=== PATIENT | female | born 1950 | race Caucasian/White ===

== ENCOUNTER → 2016-04-21 | Outpatient (CLI) | payer MEDICARE, MEDICAID ==
--- NOTE | 2016-04-21 13:13 | WOMENS IMAGING REPORT ---
EXAM DESCRIPTION: BILAT SCREENING MAMMO W/CAD COMPLETED DATE/TIME: 04/21/2016 11:29 am REASON FOR STUDY: Z12.31 ROUTINE SCREENING MAMMO Z12.31 ENCNTR SCREEN MAMMOGRAM FOR MALIGNANT NEOPL ASM OF RICKY COMPARISON: August 2014 TECHNIQUE: Standard craniocaudal and mediolateral oblique views of each breast recorded using Waneloa l acquisition. LIMITATIONS: None. FINDINGS: Findings present which are benign by mammographic criteria. No suspicious masses, calcifi cations or architectural distortion. Read with the assistance of CAD. .[facility] - R2 Cenova Version 1.3 .[facility] - R2 Cenova Version 1.3 .[facility] - R2 Cenova Version 2.4 .[facility] [place] - R2 Cenova Version 2.4 .[facility] - R2 Planer Hand Version 9.2 Benign mammographic findings may include one or more of the following: Smooth masses, popcorn/rim/co arse calcifications, asymmetries, post-procedure changes, and lesions with long-standing stability. BREAST DENSITY: b. There are scattered areas of fibroglandular density. BIRAD: 2 BENIGN FINDING(S) RECOMMENDATION: ROUTINE SCREENING COMMENT: PATIENT NOTIFIED BY LETTER. The [employer] recommends an annual screening mammogram for women aged 40 years or over. Each patient will receive a reminder prior to the anniversary date of her mammogram. The [employer] (ACR) has developed recommendations for screening MRI of the breast s in certain patient populations, to be used in conjunction with mammography. Breast MRI surveillanc e may be appropriate for women with more than 20% lifetime risk of developing breast cancer as deter mined by genetic testing, significant family history of the disease, or history of mantle radiation f or Hodgkins Disease. ACR Practice Guidelines 2008. TECHNICAL DOCUMENTATION: FINDING NUMBER: (1) ASSESSMENT: (1) JOB ID: [id number] [employer]- All Rights Reserved
== END ==
LOC: WI 11:13
PROVIDERS: ATTEND Family Medicine
DX: Z12.31 Encounter for screening mammogram for malignant neoplasm of breast (principal)
CPT/HCPCS: 77067; G0202

== ENCOUNTER 2016-06-15 11:53 | Emergency (ER) | payer MEDICARE, MEDICAID ==
--- NOTE | 2016-06-15 12:01 | ER Document Report ---
ED Medical Screen (RME) - General TRAVEL OUTSIDE OF THE [place]. IN LAST 30 DAYS: No <MONTSERRAT PUGH - Last Filed: 06/15/16 11:59> <OPAL DICKSON - Last Filed: 06/17/16 05:37> - General Stated Complaint: RIGHT SIDE FLANK PAIN Notes: 66 yo female c/o right flank pain x 2 weeks. pt has been treated with 2 rounds of abx for UTI without improvement. pain has increased. no fever. + nausea, no vomiting. no dysuria. (MONTSERRAT PUGH) - Related Data Allergies/Adverse Reactions: pregabalin [From Lyrica] Adverse Reaction (Severe, Verified 06/15/16 12:01) fuzzy headed Past Medical History - Past Medical History Cardiac Medical History: Denies: Hx Coronary Artery Disease, Hx Heart Attack, Hx Hypertension Pulmonary Medical History: Reports: Hx Pneumonia Denies: Hx Asthma, Hx Bronchitis, Hx COPD Neurological Medical History: Reports: Hx Migraine. Denies: Hx Cerebrovascular Accident, Hx Seizures GI Medical History: Reports: Hx Gastroesophageal Reflux Disease, Hx Irritable Bowel, Hx Ulcerative Colitis Musculoskeltal Medical History: Reports Hx Arthritis - generalized, Reports Hx Fibromyalgia - chronic pain syndrome Psychiatric Medical History: Reports: Hx Anxiety, Hx Depression, Hx Post Traumatic Stress Disorder Past Surgical History: Reports: Hx Hysterectomy - Immunizations Hx Diphtheria, Pertussis, Tetanus Vaccination: No <MONTSERRAT PUGH - Last Filed: 06/15/16 11:59> Course - Laboratory Result Diagrams: 06/15/16 12:05 06/15/16 12:05 <OPAL DICKSON - Last Filed: 06/17/16 05:37> - Vital Signs Vital signs: Temp Pulse Resp BP Pulse Ox 97.9 F 65 96 H 114/63 100 06/15/16 16:27 06/15/16 16:27 06/15/16 16:27 06/15/16 16:27 06/15/16 16:27 - Laboratory Laboratory results interpreted by me: 06/15/16 06/15/16 06/15/16 12:05 12:05 12:05 RDW 15.6 H Carbon Dioxide 31 H Glucose 131 H C-Reactive Protein Total Protein 6.0 L Urine Ketones TRACE H Urine Bilirubin MODERATE H Urine Urobilinogen 2.0 H Ur Leukocyte Esterase SMALL H 06/15/16 12:05 RDW Carbon Dioxide Glucose C-Reactive Protein 21.1 H Total Protein Urine Ketones Urine Bilirubin Urine Urobilinogen Ur Leukocyte Esterase Doctor's Discharge <PUGH,MONTSERRAT - Last Filed: 06/15/16 11:59> <OPAL DICKSON - Last Filed: 06/17/16 05:37> - Discharge Clinical Impression: Right flank pain, Abdominal wall pain in right flank Condition: Stable Disposition: HOME, SELF-CARE Additional Instructions: Your pain seems to be coming from the muscles in your right abdomen and flank region. You have a considerable amount of stool in your colon. You should take stool softeners and drink plenty of water to prevent constipation from developing. The pain you're having in your muscles will take time to improve. You should avoid activities that make the pain worse. Follow-up with your medical doctor if not improving. RETURN TO THE EMERGENCY ROOM IF ANY NEW OR WORSENING SYMPTOMS. Referrals: BARBIE READ DO [Primary Care Provider] - Follow up as needed
[2016-06-15 12:32] LABS: ABSOLUTE BASOPHILS # (AUTO) 0.1 10^3/uL (0.0-0.2); ABSOLUTE EOSINOPHILS # (AUTO) 0.5 10^3/uL (0.0-0.6); ABSOLUTE LYMPHOCYTES (AUTO) 1.5 10^3/uL (0.5-4.7); ABSOLUTE MONOCYTES (AUTO) 0.7 10^3/uL (0.1-1.4); EOSINOPHILS % (AUTO) 5.4 % (0-6); HEMATOCRIT 40.2 % (36.0-47.0); HGB HCT DIFFERENCE 1.8; LYMPHOCYTES % (AUTO) 17.3 % (13-45); MEAN CORPUSCULAR HEMOGLOBIN 31.7 pg (27.0-33.4); MEAN CORPUSCULAR HGB CONC 34.9 g/dL (32.0-36.0); MEAN CORPUSCULAR VOLUME 91 fl (80-97); RED BLOOD COUNT 4.42 10^6/uL (3.72-5.28); RED CELL DISTRIBUTION WIDTH 15.6 % (11.5-14.0); SEGMENTED NEUTROPHILS % (AUTO) 68.3 % (42-78); WHITE BLOOD COUNT 8.8 10^3/uL (4.0-10.5)
[2016-06-15 12:38] LABS: APPEARANCE,URINE SLIGHTLY-CLOUDY; BILIRUBIN,URINE MODERATE (NEGATIVE); GLUCOSE, URINE NEGATIVE (NEGATIVE); KETONES,URINE TRACE mg/dL (NEGATIVE); LEUKOCYTE ESTERASE,URINE SMALL (NEGATIVE); NITRITE,URINE NEGATIVE (NEGATIVE); PROTEIN,URINE NEGATIVE (NEGATIVE); URINE SPECIFIC GRAVITY 1.028
[2016-06-15 12:45] LABS: ALANINE AMINOTRANSFERASE 30 U/L (9-52); ALBUMIN 3.8 g/dL (3.5-5.0); ALKALINE PHOSPHATASE 84 U/L (38-126); ANION GAP 8 (5-19); ASPARTATE AMINO TRANSFERASE 17 U/L (14-36); BILIRUBIN,DIRECT 0.3 mg/dL (0.0-0.4); BILIRUBIN,TOTAL 0.7 mg/dL (0.2-1.3); BLOOD UREA NITROGEN 18 mg/dL (7-20); CALCIUM 9.6 mg/dL (8.4-10.2); CARBON DIOXIDE 31 mmol/L (22-30); CHLORIDE 103 mmol/L (98-107); CREATININE RESULT 0.91 mg/dL (0.52-1.25); GLUCOSE 131 mg/dL (75-110); LIPASE 127.6 U/L (23-300); POTASSIUM 4.1 mmol/L (3.6-5.0); SODIUM 141.5 mmol/L (137-145)
[2016-06-15 15:17] LABS: ADD ON TESTING BLD IN LAB ACKNOWLEDGE
--- NOTE | 2016-06-15 15:18 | ER Document Report ---
ED General - General Mode of Arrival: Ambulatory Information source: Patient TRAVEL OUTSIDE OF THE U.[place] IN LAST 30 DAYS: No - HPI Patient complains to provider of: Right Abdominal Pain Onset: Other - Approximately 3 weeks ago Onset/Duration: Gradual, Persistent Associated symptoms: Nausea, Sweating. denies: Fever <KIMI GRANADOS - Last Filed: 06/15/16 15:13> <KYLE MONTALVO - Last Filed: 06/15/16 16:03> - General Chief Complaint: Flank Pain Stated Complaint: RIGHT SIDE FLANK PAIN Notes: Patient is a 66-year-old female presenting to the emergency department concerned of right side abdominal and back pain onset approximately 3 weeks ago. Patient was seen by Dr. Moon who has prescribed 2 rounds of antibiotics that she cannot remember the name of. Patient states she took both antibiotics twice a day, and these did not relieve any of the symptoms. Patient denies fever, burning with urination, or dysuria. Patient admits to mild nausea and diaphoresis. (KIMI GRANADOS) - Related Data Allergies/Adverse Reactions: pregabalin [From Lyrica] Adverse Reaction (Severe, Verified 06/15/16 12:01) fuzzy headed Past Medical History - General Information source: Patient, [facility] Records - Social History Smoking Status: Current Every Day Smoker Chew tobacco use (# tins/day): No Frequency of alcohol use: None Drug Abuse: None Family History: Reviewed & Not Pertinent Patient has suicidal ideation: No Patient has homicidal ideation: No - Past Medical History Cardiac Medical History: Denies: Hx Coronary Artery Disease, Hx Heart Attack, Hx Hypertension Pulmonary Medical History: Reports: Hx Pneumonia Denies: Hx Asthma, Hx Bronchitis, Hx COPD Neurological Medical History: Reports: Hx Migraine. Denies: Hx Cerebrovascular Accident, Hx Seizures Renal/ Medical History: Denies: Hx Peritoneal Dialysis GI Medical History: Reports: Hx Gastroesophageal Reflux Disease, Hx Irritable Bowel, Hx Ulcerative Colitis - ULERATIVE COLITIS, IBS, FIBROMYALGIA Musculoskeltal Medical History: Reports Hx Arthritis - OA, Reports Hx Fibromyalgia - chronic pain syndrome Psychiatric Medical History: Reports: Hx Anxiety, Hx Depression, Hx Post Traumatic Stress Disorder Past Surgical History: Reports: Hx Hysterectomy, Hx Orthopedic Surgery - L ELBOW NERVE TRANSFER, Hx Tubal Ligation - Immunizations Hx Diphtheria, Pertussis, Tetanus Vaccination: No Hx Pneumococcal Vaccination: 12/19/15 <SUMEET GRANADOSICA - Last Filed: 06/15/16 15:13> Review of Systems - Review of Systems Constitutional: See HPI, Diaphoresis. denies: Fever EENT: No symptoms reported Cardiovascular: No symptoms reported Respiratory: No symptoms reported Gastrointestinal: See HPI, Abdominal pain - Right side, Nausea Genitourinary: No symptoms reported. denies: Burning, Dysuria Female Genitourinary: No symptoms reported Musculoskeletal: No symptoms reported Skin: No symptoms reported Hematologic/Lymphatic: No symptoms reported Neurological/Psychological: No symptoms reported -: Yes All other systems reviewed and negative <DARWINIKMI - Last Filed: 06/15/16 15:13> Physical Exam - Vital signs Interpretation: Normal - General General appearance: Appears well, Alert - HEENT Head: Normocephalic, Atraumatic Eyes: Normal Pupils: PERRL - Respiratory Respiratory status: No respiratory distress Chest status: Nontender Breath sounds: Normal Chest palpation: Normal - Cardiovascular Rhythm: Regular Heart sounds: Normal auscultation Murmur: No - Abdominal Inspection: Obese Bowel sounds: Normal Tenderness: Tender - Tenderness to palpation over the anterolateral and lateral muscle wall on the right side. Tenderness extends over the ribs and into the flank area. - Back Back: Normal, Nontender - Extremities General upper extremity: Normal inspection, Nontender General lower extremity: Normal inspection, Nontender - Neurological Neuro grossly intact: Yes Cognition: Normal Sarika Coma Scale Eye Opening: Spontaneous Sarika Coma Scale Verbal: Oriented Shields Coma Scale Motor: Obeys Commands Shields Coma Scale Total: 15 - Psychological Associated symptoms: Normal affect, Normal mood - Skin Skin Temperature: Warm Skin Moisture: Dry Skin Color: Normal <DARWINKIMI - Last Filed: 06/15/16 15:13> Course - Laboratory Result Diagrams: 06/15/16 12:05 06/15/16 12:05 <DARWINKIMI - Last Filed: 06/15/16 15:13> - Laboratory Result Diagrams: 06/15/16 12:05 06/15/16 12:05 - Diagnostic Test Radiology reviewed: Image reviewed, Reports reviewed - CT scan shows considerable colonic stool. He can also see the right lateral abdominal muscles curve outward consistent with her complaint and exam showing a bulging to the right side. This does not look like an acute process. <KYLE MONTALVO - Last Filed: 06/15/16 16:03> - Vital Signs Vital signs: Temp Pulse Resp BP Pulse Ox 98.7 F 73 14 122/67 93 06/15/16 11:57 06/15/16 11:57 06/15/16 11:57 06/15/16 11:57 06/15/16 11:57 - Laboratory Laboratory results interpreted by me: 06/15/16 06/15/16 06/15/16 12:05 12:05 12:05 RDW 15.6 H Carbon Dioxide 31 H Glucose 131 H C-Reactive Protein Total Protein 6.0 L Urine Ketones TRACE H Urine Bilirubin MODERATE H Urine Urobilinogen 2.0 H Ur Leukocyte Esterase SMALL H 06/15/16 12:05 RDW Carbon Dioxide Glucose C-Reactive Protein 21.1 H Total Protein Urine Ketones Urine Bilirubin Urine Urobilinogen Ur Leukocyte Esterase Discharge <KIMI GRANADOS - Last Filed: 06/15/16 15:13> <KYLE MONTALVO - Last Filed: 06/15/16 16:03> - Discharge Clinical Impression: Right flank pain, Abdominal wall pain in right flank Condition: Stable Disposition: HOME, SELF-CARE Additional Instructions: Your pain seems to be coming from the muscles in your right abdomen and flank region. You have a considerable amount of stool in your colon. You should take stool softeners and drink plenty of water to prevent constipation from developing. The pain you're having in your muscles will take time to improve. You should avoid activities that make the pain worse. Follow-up with your medical doctor if not improving. RETURN TO THE EMERGENCY ROOM IF ANY NEW OR WORSENING SYMPTOMS. Referrals: BARBIE MOON DO [Primary Care Provider] - Follow up as needed Scribe Attestation: 06/15/16 16:03 I personally performed the services described in the documentation, reviewed and edited the documentation which was dictated to the scribe in my presence, and it accurately records my words and actions. (KYLE MONTALVO) Scribe Documentation - Scribe Written by Scribe:: Kimi Granados 06/15/2016 1513 acting as scribe for :: [place] <KIMI GRANADOS - Last Filed: 06/15/16 15:13>
[2016-06-15 15:47] LABS: C-REACTIVE PROTEIN 21.1 mg/L (<10.0)
[2016-06-15 16:29] VITALS: BP 114/63
== END 2016-06-15 16:27 | disposition home or self-care (01) ==
LOC: ER 11:53
DX: R10.9 Unspecified abdominal pain (principal); R11.0 Nausea; R61 Generalized hyperhidrosis; M54.9 Dorsalgia, unspecified; F17.200 Nicotine dependence, unspecified, uncomplicated
CPT/HCPCS: 36415; 76380; 80053; 81001; 83690; 85025; 86140; 99284

== ENCOUNTER → 2016-12-09 | Outpatient (CLI) | payer MEDICARE, MEDICAID ==
--- NOTE | 2016-12-09 19:29 | EKG REPORT ---
SEVERITY:- NORMAL ECG - SINUS RHYTHM : Confirmed by: Jonh French MD 09-Dec-2016 19:28:40
== END ==
LOC: OD 12:28
PROVIDERS: ATTEND Family Medicine
DX: I25.10 Atherosclerotic heart disease of native coronary artery without angina pectoris (principal)
CPT/HCPCS: 93005; 93010

== ENCOUNTER → 2016-12-15 | Outpatient (CLI) | payer MEDICARE ==
--- NOTE | 2016-12-15 14:12 | WOMENS IMAGING REPORT ---
EXAM DESCRIPTION: BILAT DIAGNOSTIC MAMMO W/CAD; U/S BREAST UNILAT LIMITED COMPLETED DATE/TIME: 12/15/2016 1:10 pm; 12/15/2016 2:00 pm REASON FOR STUDY: LUMP IN BREAST; RT BREAST LUMP/PAIN N63 UNSPECIFIED LUMP IN BREAST COMPARISON: 04/21/2016 and 03/10/2015. TECHNIQUE: Standard craniocaudal and mediolateral oblique views of each breast recorded using digita l acquisition. Additional true lateral images of the right breast also acquired. LIMITATIONS: None. FINDINGS: RIGHT BREAST MASSES: No suspicious masses. CALCIFICATIONS: No new or suspicious calcifications. ARCHITECTURAL DISTORTION: None. DEVELOPING DENSITY: None. ASYMMETRY: None noted. OTHER: No other significant findings. LEFT BREAST MASSES: No suspicious masses. CALCIFICATIONS: No new or suspicious calcifications. ARCHITECTURAL DISTORTION: None. DEVELOPING DENSITY: None. ASYMMETRY: None noted. OTHER: No other significant finding. Read with the assistance of CAD: .[facility] - R2 Cenova Version 1.3 .[facility] - R2 Cenova Version 1.3 .[facility] - R2 Cenova Version 2.4 .[facility] - R2 Cenova Version 2.4 .[facility] - R2 Tip Inserter Version 9.2 BREAST ULTRASOUND: TECHNIQUE: Static and dynamic grayscale images acquired of the right breast in the specific areas of clinical/mammographic concern. Selected color Doppler images recorded. ELASTOGRAPHY PERFORMED: No. LIMITATIONS: None. FINDINGS: MASS: Superficial skin lesion in the axilla. No mass identified. Normal glandular tissue. ELASTOGRAPHY CHARACTERISTICS: Not applicable. OTHER: No other significant finding. IMPRESSION: Stable mammographic appearance of both breasts. No worrisome mammographic or sonographi c findings. BREAST DENSITY: b. There are scattered areas of fibroglandular density. BIRAD: 1 Negative. RECOMMENDATION: RECOMMENDED FOLLOW UP: Birads 1 or 2: The patient should resume routine screening . SPECIFIC INTERVENTION/IMAGING/CONSULTATION RECOMMENDED:No additional intervention/ imaging/consultati on needed at this time. COMMUNICATION:The negative/benign results were communicated to the patient. COMMENT: The patient has been notified of the results by letter per MQSA requirements. Additional no tification policies are in place for contacting patient with suspicious or incomplete findings. Quality ID #[id number]: The [employer] recommends an annual screening mammogram for women aged 40 years or over. This facility utilizes a reminder system to ensure that all patients receive reminder letters, and/or direct phone calls for appointments. This includes reminders for routine scr eening mammograms, diagnostic mammograms, or other Breast Imaging Interventions when appropriate. Th is patient will be placed in the appropriate reminder system. The [employer] (ACR) has developed recommendations for screening MRI of the breast s in certain patient populations, to be used in conjunction with mammography. Breast MRI surveillanc e may be appropriate for women with more than 20% lifetime risk of developing breast cancer as deter mined by genetic testing, significant family history of the disease, or history of mantle radiation f or Hodgkins Disease. ACR Practice Guidelines 2008. TECHNICAL DOCUMENTATION: FINDING NUMBER: (1) ASSESSMENT: (1) JOB ID: [id number] [employer]- All Rights Reserved
--- NOTE | 2016-12-15 14:12 | WOMENS IMAGING REPORT ---
EXAM DESCRIPTION: BILAT DIAGNOSTIC MAMMO W/CAD; U/S BREAST UNILAT LIMITED COMPLETED DATE/TIME: 12/15/2016 1:10 pm; 12/15/2016 2:00 pm REASON FOR STUDY: LUMP IN BREAST; RT BREAST LUMP/PAIN N63 UNSPECIFIED LUMP IN BREAST COMPARISON: 04/21/2016 and 03/10/2015. TECHNIQUE: Standard craniocaudal and mediolateral oblique views of each breast recorded using digita l acquisition. Additional true lateral images of the right breast also acquired. LIMITATIONS: None. FINDINGS: RIGHT BREAST MASSES: No suspicious masses. CALCIFICATIONS: No new or suspicious calcifications. ARCHITECTURAL DISTORTION: None. DEVELOPING DENSITY: None. ASYMMETRY: None noted. OTHER: No other significant findings. LEFT BREAST MASSES: No suspicious masses. CALCIFICATIONS: No new or suspicious calcifications. ARCHITECTURAL DISTORTION: None. DEVELOPING DENSITY: None. ASYMMETRY: None noted. OTHER: No other significant finding. Read with the assistance of CAD: .[facility] - R2 Cenova Version 1.3 .[facility] - R2 Cenova Version 1.3 .[facility] - R2 Cenova Version 2.4 .[facility] - R2 Cenova Version 2.4 .[facility] - R2 Figure Model Version 9.2 BREAST ULTRASOUND: TECHNIQUE: Static and dynamic grayscale images acquired of the right breast in the specific areas of clinical/mammographic concern. Selected color Doppler images recorded. ELASTOGRAPHY PERFORMED: No. LIMITATIONS: None. FINDINGS: MASS: Superficial skin lesion in the axilla. No mass identified. Normal glandular tissue. ELASTOGRAPHY CHARACTERISTICS: Not applicable. OTHER: No other significant finding. IMPRESSION: Stable mammographic appearance of both breasts. No worrisome mammographic or sonographi c findings. BREAST DENSITY: b. There are scattered areas of fibroglandular density. BIRAD: 1 Negative. RECOMMENDATION: RECOMMENDED FOLLOW UP: Birads 1 or 2: The patient should resume routine screening . SPECIFIC INTERVENTION/IMAGING/CONSULTATION RECOMMENDED:No additional intervention/ imaging/consultati on needed at this time. COMMUNICATION:The negative/benign results were communicated to the patient. COMMENT: The patient has been notified of the results by letter per MQSA requirements. Additional no tification policies are in place for contacting patient with suspicious or incomplete findings. Quality ID #[id number]: The [employer] recommends an annual screening mammogram for women aged 40 years or over. This facility utilizes a reminder system to ensure that all patients receive reminder letters, and/or direct phone calls for appointments. This includes reminders for routine scr eening mammograms, diagnostic mammograms, or other Breast Imaging Interventions when appropriate. Th is patient will be placed in the appropriate reminder system. The [employer] (ACR) has developed recommendations for screening MRI of the breast s in certain patient populations, to be used in conjunction with mammography. Breast MRI surveillanc e may be appropriate for women with more than 20% lifetime risk of developing breast cancer as deter mined by genetic testing, significant family history of the disease, or history of mantle radiation f or Hodgkins Disease. ACR Practice Guidelines 2008. TECHNICAL DOCUMENTATION: FINDING NUMBER: (1) ASSESSMENT: (1) JOB ID: [id number] [employer]- All Rights Reserved
== END ==
LOC: WI 12:37
PROVIDERS: ATTEND Family Medicine
DX: N63 Unspecified lump in breast (principal)
CPT/HCPCS: 76642; G0204; 77066

== ENCOUNTER 2017-01-11 09:50 | Day surgery (SDC) | payer MEDICARE, MEDICAID ==
[2017-01-11] MEDS ORDERED: DIPHENHYDRAMINE HCL 50 MG/ML VIAL ONE (09:53)
[2017-01-11] MEDS ORDERED: NALOXONE HCL INJ/PF 0.4 MG/1 ML SDV ONE (09:53)
[2017-01-11] MEDS ORDERED: MIDAZOLAM 2 MG/2 ML INJ ONE ×2 (09:53)
[2017-01-11] MEDS ORDERED: ONDANSETRON HCL INJ/PF 4 MG/2 ML SDV ONE (09:53)
[2017-01-11] MEDS ORDERED: FLUMAZENIL INJ 0.5 MG/5 ML VIAL ONE (09:54)
[2017-01-11] MEDS ORDERED: FENTANYL CITRATE INJ/PF 100 MCG/2 ML AMPUL ONE ×2 (09:54)
[2017-01-11] MEDS ORDERED: GLUCAGON,HUMAN RECOMB 1 MG INJ ONE (09:54)
[2017-01-11] MEDS ORDERED: EPINEPHRINE INJ 1 MG/10 ML DISP.SYRIN ONE (09:54)
--- NOTE | 2017-01-11 10:47 | Operative Report ---
Operative Report DATE OF SURGERY: 01/11/17 Operative Report: The risks benefits and alternatives of the procedure explained to the patient in detail and informed consent is obtained.A GIF Olympus video scope was inserted into the patient's mouth and hypopharynx, the esophagus is identified intubated and insufflated, the scope was then advanced through the esophagus stomach and duodenum, retroflexion maneuver is done, the esophagus stomach and first and second portions of the duodenum examined PREOPERATIVE DIAGNOSIS: Dysphagia POSTOPERATIVE DIAGNOSIS: Gastritis status post biopsy rule out Helicobacter pylori. Esophagitis versus Farnsworth's status post biopsy OPERATION: EGD with biopsy SURGEON: BURKE MERRILL ANESTHESIA: Moderate Sedation - 2 mg of Versed, 75 mcg of fentanyl. Conscious sedation monitoring time 30 minutes. TISSUE REMOVED OR ALTERED: Gastric mucosal specimen obtained to rule out Helicobacter pylori COMPLICATIONS: None. ESTIMATED BLOOD LOSS: None. INTRAOPERATIVE FINDINGS: As noted above. PROCEDURE: Patient tolerated procedure well. No immediate postprocedure complications are noted. Patient discharged in good condition. Discharge date 01/11/2017. Discharge diet: Regular. Discharge activity: Regular. 2-3 week follow-up to discuss findings. Patient is instructed to call the office or proceed to the emergency room should there be any further problems or questions. We will await pathology.
[2017-01-11 11:46] VITALS: BP 139/66
== END 2017-01-11 11:50 | disposition home or self-care (01) ==
LOC: END 09:50
PROVIDERS: ATTEND Internal Medicine Gastroenterology
PROC: 0DB58ZX Excision of Esophagus, Via Natural or Artificial Opening Endoscopic, Diagnostic (ICD-10-PCS; 2017-01-11)
PROC: 0DB68ZX Excision of Stomach, Via Natural or Artificial Opening Endoscopic, Diagnostic (ICD-10-PCS; principal; 2017-01-11 10:30)
DX: K29.50 Unspecified chronic gastritis without bleeding (principal); K20.9 Esophagitis, unspecified; F17.210 Nicotine dependence, cigarettes, uncomplicated; E03.9 Hypothyroidism, unspecified; E78.2 Mixed hyperlipidemia; I25.10 Atherosclerotic heart disease of native coronary artery without angina pectoris; Z79.51 Long term (current) use of inhaled steroids; Z79.899 Other long term (current) drug therapy; Z79.82 Long term (current) use of aspirin
CPT/HCPCS: 43239; 88342 ×2; 88305 ×2; J2250; J3010; J0171; J1200; J1610; J2310; J2405; J3490

== ENCOUNTER 2017-06-18 15:05 | Emergency (ER) | payer MEDICAID, MEDICARE ==
--- NOTE | 2017-06-18 16:12 | ER Document Report ---
ED Fall - General Chief Complaint: Fall Stated Complaint: FALL ARM PAIN Time Seen by Provider: 06/18/17 15:46 Mode of Arrival: Ambulatory Information source: Patient Notes: 67-year-old female presents to ED for complaint of left arm pain. She states she was sitting on the toilet last night smoking cigarettes and playing her [employer] game and she must apply to long because she fell asleep followed over on the toilet hitting her arm on the toilet. She states she has done this in the past she will play the game and fall asleep. TRAVEL OUTSIDE OF THE [place] IN LAST 30 DAYS: No - HPI Occurred: Yesterday Where: Home, Indoors Context: Fell from sitting - Fell off of toilet Associated symptoms: Other - Injured left arm Location of injury/pain: Upper extremity - Left arm Quality of pain: Sharp, Throbbing Severity: Mild Pain Level: 2 - Related data Allergies/Adverse Reactions: pregabalin [From Lyrica] Adverse Reaction (Severe, Verified 01/11/17 10:06) fuzzy headed Past Medical History - General Information source: Patient - Social History Smoking Status: Current Every Day Smoker Cigarette use (# per day): Yes - Three fourths pack per day Chew tobacco use (# tins/day): No Smoking Education Provided: Yes - 4 minutes Frequency of alcohol use: None Drug Abuse: None Lives with: Alone Family History: CAD, DM, Hyperlipidemia, Hypertension, Malignancy. denies: Arthritis, COPD, CVA, Thyroid Disfunction - Past Medical History Cardiac Medical History: Reports: Hx Coronary Artery Disease, Other - Valve problems Pulmonary Medical History: Reports: Hx Bronchitis, Hx Pneumonia EENT Medical History: Reports: None Neurological Medical History: Reports: Hx Migraine Endocrine Medical History: Reports: None Renal/ Medical History: Reports: None Malignancy Medical History: Reports: None GI Medical History: Reports: Hx Gastroesophageal Reflux Disease, Hx Irritable Bowel, Hx Ulcerative Colitis - ULERATIVE COLITIS, IBS, Musculoskeltal Medical History: Reports Hx Arthritis - OA, Reports Hx Fibromyalgia - chronic pain syndrome Skin Medical History: Reports None Psychiatric Medical History: Reports: Hx Anxiety, Hx Depression, Hx Post Traumatic Stress Disorder Traumatic Medical History: Reports: None Infectious Medical History: Reports: None Past Surgical History: Reports: Hx Hysterectomy, Hx Orthopedic Surgery - L ELBOW NERVE TRANSFER, Hx Tubal Ligation - Immunizations Hx Diphtheria, Pertussis, Tetanus Vaccination: Yes - May 2017 Hx Pneumococcal Vaccination: 12/18/17 Review of Systems - Review of Systems Constitutional: No symptoms reported EENT: No symptoms reported Cardiovascular: No symptoms reported Respiratory: No symptoms reported Gastrointestinal: No symptoms reported Genitourinary: No symptoms reported Female Genitourinary: No symptoms reported Musculoskeletal: Other - Left arm bruising soreness from the elbow to the fingers Skin: Other - Left arm bruising and pain from the elbow to the fingers Hematologic/Lymphatic: No symptoms reported Neurological/Psychological: No symptoms reported -: Yes All other systems reviewed and negative Physical Exam - Vital signs Vitals: Temp Pulse Resp BP Pulse Ox 99.0 F 71 18 117/63 94 06/18/17 15:09 06/18/17 15:09 06/18/17 15:09 06/18/17 15:09 06/18/17 15:09 Interpretation: Normal - General General appearance: Appears well, Alert - HEENT Head: Normocephalic, Atraumatic Eyes: Normal Pupils: PERRL - Respiratory Respiratory status: No respiratory distress Chest status: Nontender Breath sounds: Normal Chest palpation: Normal - Cardiovascular Rhythm: Regular Heart sounds: Normal auscultation Murmur: No - Abdominal Inspection: Normal Distension: No distension Bowel sounds: Normal Tenderness: Nontender Organomegaly: No organomegaly - Back Back: Normal, Nontender - Extremities General upper extremity: Normal temperature General lower extremity: Normal inspection, Nontender, Normal color, Normal ROM , Normal temperature, Normal weight bearing. No: Adrian's sign Forearm: Tender, Ecchymosis Wrist: Tender, Ecchymosis, Limited ROM. No: Axial load of thumb pain Hand: Tender - Due to pain, Ecchymosis, No evidence of human bite, No evidence of FB - Neurological Neuro grossly intact: Yes Cognition: Normal Orientation: AAOx4 Sarika Coma Scale Eye Opening: Spontaneous Treece Coma Scale Verbal: Oriented Treece Coma Scale Motor: Obeys Commands Sarika Coma Scale Total: 15 Speech: Normal Motor strength normal: LUE, RUE, LLE, RLE Sensory: Normal - Psychological Associated symptoms: Normal affect, Normal mood - Skin Skin Temperature: Warm Skin Moisture: Dry Skin Color: Normal Course - Re-evaluation Re-evalutation: 06/18/17 19:13 X-rays and labs with patient. Copy of the report of the labs and x-rays given the patient and patient was discharged home. Patient is to follow-up with her primary doctor on Monday. Patient is already on narcotics and pain patch. Patient instructed to elevate and ice the areas. - Vital Signs Vital signs: Temp Pulse Resp BP Pulse Ox 98.8 F 64 18 106/53 L 97 06/18/17 19:17 06/18/17 19:17 06/18/17 19:17 06/18/17 19:17 06/18/17 19:17 - Laboratory Result Diagrams: 06/18/17 17:05 06/18/17 17:05 Laboratory results interpreted by me: 06/18/17 06/18/17 06/18/17 17:05 17:05 17:05 MCH 33.5 H RDW 14.7 H Carbon Dioxide 34 H Creatine Kinase 260 H CK-MB (CK-2) 6.27 H Total Protein 5.8 L Urine Bilirubin Urine Urobilinogen Ur Leukocyte Esterase 06/18/17 17:05 MCH RDW Carbon Dioxide Creatine Kinase CK-MB (CK-2) Total Protein Urine Bilirubin SMALL H Urine Urobilinogen 4.0 H Ur Leukocyte Esterase TRACE H - Diagnostic Test Radiology reviewed: Image reviewed, Reports reviewed Discharge - Discharge Clinical Impression: Fall Qualifiers: Encounter type: initial encounter Qualified Code(s): W19.XXXA - Unspecified fall, initial encounter Contusion of left hand Qualifiers: Encounter type: initial encounter Qualified Code(s): S60.222A - Contusion of left hand, initial encounter Contusion of left wrist Qualifiers: Encounter type: initial encounter Qualified Code(s): S60.212A - Contusion of left wrist, initial encounter Contusion of left forearm Qualifiers: Encounter type: initial encounter Qualified Code(s): S50.12XA - Contusion of left forearm, initial encounter Condition: Stable Disposition: HOME, SELF-CARE Additional Instructions: CONTUSION: Your injury has resulted in a contusion -- a crushing of the deep tissues. No injury to important structures was detected during the physician's exam. Contusions vary in the amount of pain they cause, and in the length of time required for healing. Typically, the area will become bruised, and will remain painful to touch for two or three weeks. However, most patients are back to working and playing within a few days. After the initial period of rest and cold-packs, your symptoms (together with the doctor's recommendations) will determine how rapidly you can get back to full activity. Usually this means "do what feels okay, but don't do things that hurt." If re-examination was recommended, it's important to follow up as instructed. Call the doctor or return any time if pain increases, if swelling becomes severe, if you develop numbness or weakness in an injured extremity, or if any other alarming symptoms occur. ABRASIONS: An abrasion is a scraping injury of the skin. Some scarring may result. The seriousness of an abrasion is not always obvious at first. Hidden tissue damage may be present and infection may occur despite proper care. Complete healing may take from ten days to as long as a month. The healing time depends on the depth of the abrasion, and on the amount of crushing of underlying tissues from the injury. Keep the wound and dressing clean. Do not shower or bathe the area until okayed by the doctor. If the dressing gets wet, remove it and blot the wound dry, then reapply a clean dressing. Dressings should be changed every day. Sunscreen should be used for six months after the skin is healed. If any signs of infection occur (swelling, redness, increasing tenderness, red streaks, profuse purulent drainage from the abrasion, tender lumps in the armpit or groin above the abrasion, or fever), see the doctor immediately. USE OF TYLENOL (ACETAMINOPHEN): Acetaminophen may be taken for pain relief or fever control. It's much safer than aspirin, offering a wider range of "safe" dosages. It is safe during . Some brand names are Tylenol, Panadol, Datril, Anacin 3, Tempra, and Liquiprin. Acetaminophen can be repeated every four hours. The following are maximum recommended dosages: WEIGHT Dose Drops Elixir Chewable( 80mg) (LBS.) drprs=droppers tsp=teaspoon 6 40 mg 0.4 ml (1/2) 6-11 80 mg 0.8 ml (full) tsp 1 tab 12-16 120 mg 1 1/2 drprs 3/4 tsp 1 1/2 tabs 17-23 160 mg 2 drprs 1 tsp 2 tabs 24-30 240 mg 3 drprs 1 1/2 tsp 3 tabs 30-35 320 mg 2 tsp 4 tabs 36-41 360 mg 2 1/4 tsp 4 1/2 tabs 42-47 400 mg 2 1/2 tsp 5 tabs 48-53 480 mg 3 tsp 6 tabs 54-59 520 mg 3 1/4 tsp 6 1/2 tabs 60-64 560 mg 3 1/2 tsp 7 tabs 65-70 600 mg 3 3/4 tsp 7 1/2 tabs 71-76 640 mg 4 tsp 8 tabs 77-82 720 mg 4 1/2 tsp 9 tabs 83-88 800 mg 5 tsp 10 tabs >89 pounds or adults 650 mg to 900 mg Acetaminophen can be repeated every four hours. Maximum dose not to exceed 4000 mg a day. These maximum recommended dosages are slightly higher than the dosages written on the product container, but these dosages are very safe and below the toxic dosage for acetaminophen. SOAP CLEANSING: Gently wash the wound daily using a mild soap (like Ivory, Phisoderm, Neutrogena). Use warm water, rubbing gently until all debris, ooze, and crusting have been washed from the wound. Allow to dry briefly (about 10 minutes) after cleaning. Repeat this cleansing at least three times a day for the first two days and then once or twice a day. Ice & Elevation Apply ice packs frequently against the painful area. Many different schedules are recommended, such as "20 minutes on, 20 minutes off" or "one hour ice, two hours rest." If you need to work, you may need to go longer between ice treatments. You should plan to have the area ice packed AT LEAST one- fourth of the time. The ice should be applied over the wrap, tape, or splint, or over a layer of cloth -- not directly against the skin. Some ice bags have a built-in cloth and can be put directly on the skin. Your injured part should be elevated as much as possible over the next 48 hours. Try to keep the injury above the level of the heart. Avoid use of the injured area. Elevation and rest will decrease the swelling. ANTIBIOTIC OINTMENT PROTECTION: Your wounds are such that dressing them is not practical or optional. After cleansing, you should apply a thin coating of antibiotic ointment ( Bacitracin, not Neosporin) to the wounds at least three times daily. This lessens infection risk, and may decrease the amount of scarring. Use a q-tip or dull butter knife, not your finger, to apply this ointment. Any debris or ooze which builds up in the ointment should be gently rubbed off with a sterile gauze pad. Harder crusting may need to be gently scrubbed off with a clean wash cloth with soap and warm water, perhaps applying a warm, wet wash cloth to the wound for ten minutes first. Development of redness, severe itching, or blistering may mean allergy to the ointment. See the doctor. FOLLOW-UP CARE: If you have been referred to a physician for follow-up care, call the physician s office for an appointment as you were instructed or within the next two days. If you experience worsening or a significant change in your symptoms, notify the physician immediately or return to the Emergency Department at any time for re-evaluation. Referrals: BARBIE READ DO [Primary Care Provider] - 06/20/17
--- NOTE | 2017-06-18 17:15 | RADIOLOGY REPORT (SQ) ---
EXAM DESCRIPTION: FOREARM LEFT COMPLETED DATE/TIME: 06/18/2017 4:58 pm REASON FOR STUDY: fall of toilet arm pain COMPARISON: None. NUMBER OF VIEWS: Two views. TECHNIQUE: Two radiographic images acquired of the left forearm, including elbow and wrist in at [address] one projection. LIMITATIONS: None. FINDINGS: MINERALIZATION: Normal. BONES: No acute fracture. No worrisome bone lesions. SOFT TISSUES: No obvious swelling or foreign body. OTHER: No other significant finding. IMPRESSION: NEGATIVE STUDY OF THE LEFT FOREARM. NO RADIOGRAPHIC EVIDENCE OF ACUTE INJURY. TECHNICAL DOCUMENTATION: JOB ID: [id number] [employer]- All Rights Reserved Reading location - IP/workstation name: [email or web address]
--- NOTE | 2017-06-18 17:15 | RADIOLOGY REPORT (SQ) ---
EXAM DESCRIPTION: CHEST PA/LAT COMPLETED DATE/TIME: 06/18/2017 4:50 pm REASON FOR STUDY: fell off of toilet COMPARISON: 10/18/2014. EXAM PARAMETERS: NUMBER OF VIEWS: two views TECHNIQUE: Digital Frontal and Lateral radiographic views of the chest acquired. RADIATION DOSE: NA LIMITATIONS: none FINDINGS: LUNGS AND PLEURA: No opacities, masses or pneumothorax. No pleural effusion. MEDIASTINUM AND HILAR STRUCTURES: No masses or contour abnormalities. HEART AND VASCULAR STRUCTURES: Heart normal size. No evidence for failure. BONES: No acute findings. HARDWARE: None in the chest. OTHER: No other significant finding. IMPRESSION: NO SIGNIFICANT RADIOGRAPHIC FINDING IN THE CHEST. TECHNICAL DOCUMENTATION: JOB ID: [id number] [employer]- All Rights Reserved Reading location - IP/workstation name: [email or web address]
--- NOTE | 2017-06-18 17:16 | RADIOLOGY REPORT (SQ) ---
EXAM DESCRIPTION: WRIST LEFT 3 VIEWS COMPLETED DATE/TIME: 06/18/2017 4:58 pm REASON FOR STUDY: fall of toilet arm pain COMPARISON: None. NUMBER OF VIEWS: Three views. TECHNIQUE: AP, lateral, and oblique radiographic images acquired of the left wrist. LIMITATIONS: None. FINDINGS: MINERALIZATION: Normal. BONES: No acute fracture or dislocation. No worrisome bone lesions. Normal alignment. SOFT TISSUES: No soft tissue swelling. No foreign body. OTHER: No other significant finding. IMPRESSION: NEGATIVE STUDY OF THE LEFT WRIST. NO RADIOGRAPHIC EVIDENCE OF ACUTE INJURY. TECHNICAL DOCUMENTATION: JOB ID: [id number] [employer]- All Rights Reserved Reading location - IP/workstation name: [email or web address]
--- NOTE | 2017-06-18 17:16 | RADIOLOGY REPORT (SQ) ---
EXAM DESCRIPTION: HAND LEFT 3 VIEWS COMPLETED DATE/TIME: 06/18/2017 4:58 pm REASON FOR STUDY: fall of toilet arm pain COMPARISON: 11/25/2015. EXAM PARAMETERS: NUMBER OF VIEWS: Three views. TECHNIQUE: AP, lateral and oblique radiographic images acquired of the left hand. LIMITATIONS: None. FINDINGS: MINERALIZATION: Normal. BONES: No acute fracture or dislocation. No worrisome bone lesions. JOINTS: No effusions. SOFT TISSUES: No soft tissue swelling. No foreign body. OTHER: No other significant finding. IMPRESSION: NEGATIVE STUDY OF THE LEFT HAND. NO RADIOGRAPHIC EVIDENCE OF ACUTE INJURY. TECHNICAL DOCUMENTATION: JOB ID: [id number] [employer]- All Rights Reserved Reading location - IP/workstation name: [email or web address]
[2017-06-18 17:27] LABS: ABSOLUTE EOSINOPHILS # (AUTO) 0.1 10^3/uL (0.0-0.6); ABSOLUTE LYMPHOCYTES (AUTO) 2.4 10^3/uL (0.5-4.7); ABSOLUTE MONOCYTES (AUTO) 0.7 10^3/uL (0.1-1.4); ABSOLUTE NEUT (AUTO) 4.3 10^3/uL (1.7-8.2); BASOPHILS % (AUTO) 0.5 % (0-2); EOSINOPHILS % (AUTO) 1.6 % (0-6); HEMATOCRIT 40.8 % (36.0-47.0); HEMOGLOBIN 14.1 g/dL (12.0-15.5); LYMPHOCYTES % (AUTO) 31.9 % (13-45); MEAN CORPUSCULAR HEMOGLOBIN 33.5 pg (27.0-33.4); MEAN CORPUSCULAR HGB CONC 34.7 g/dL (32.0-36.0); MEAN CORPUSCULAR VOLUME 97 fl (80-97); MONOCYTES % (AUTO) 8.8 % (3-13); PLATELET COUNT 220 10^3/uL (150-450); RED BLOOD COUNT 4.21 10^6/uL (3.72-5.28); RED CELL DISTRIBUTION WIDTH 14.7 % (11.5-14.0); SEGMENTED NEUTROPHILS % (AUTO) 57.2 % (42-78); TOTAL CELLS COUNTED % (AUTO) 100 %; WHITE BLOOD COUNT 7.5 10^3/uL (4.0-10.5)
[2017-06-18 17:46] LABS: APPEARANCE,URINE CLEAR; BILIRUBIN,URINE SMALL (NEGATIVE); COLOR,URINE YELLOW; GLUCOSE, URINE NEGATIVE (NEGATIVE); KETONES,URINE NEGATIVE (NEGATIVE); PROTEIN,URINE NEGATIVE (NEGATIVE); URINE SPECIFIC GRAVITY 1.023
[2017-06-18 17:47] LABS: LEUKOCYTE ESTERASE,URINE TRACE (NEGATIVE); NITRITE,URINE NEGATIVE (NEGATIVE)
[2017-06-18 17:49] LABS: ALANINE AMINOTRANSFERASE 26 U/L (9-52); ALBUMIN 3.9 g/dL (3.5-5.0); ALKALINE PHOSPHATASE 54 U/L (38-126); ANION GAP 6 (5-19); ASPARTATE AMINO TRANSFERASE 26 U/L (14-36); BILIRUBIN,DIRECT 0.2 mg/dL (0.0-0.4); BILIRUBIN,TOTAL 1.3 mg/dL (0.2-1.3); BLOOD UREA NITROGEN 17 mg/dL (7-20); CARBON DIOXIDE 34 mmol/L (22-30); CHLORIDE 101 mmol/L (98-107); CREATINE KINASE 260 U/L (30-135); GLUCOSE 87 mg/dL (75-110); POTASSIUM 4.3 mmol/L (3.6-5.0); SODIUM 141.2 mmol/L (137-145); TOTAL PROTEIN 5.8 g/dL (6.3-8.2)
[2017-06-18 18:00] LABS: URINE AMPHETAMINES SCREEN NEGATIVE; URINE BARBITURATES SCREEN NEGATIVE; URINE BENZODIAZEPINES SCREEN NEGATIVE; URINE COCAINE SCREEN NEGATIVE; URINE MARIJUANA (THC) SCREEN NEGATIVE; URINE METHADONE SCREEN NEGATIVE; URINE PHENCYCLIDINE SCREEN NEGATIVE
[2017-06-18 18:09] LABS: CREATINE KINASE MB 6.27 ng/mL (<4.55)
[2017-06-18 18:10] LABS: TROPONIN I < 0.012 ng/mL
--- NOTE | 2017-06-18 19:06 | EKG REPORT ---
SEVERITY:- NORMAL ECG - SINUS RHYTHM : Confirmed by: Jonh French MD 18-Jun-2017 19:05:28
[2017-06-18 19:27] VITALS: BP 106/53
== END 2017-06-18 19:27 | disposition home or self-care (01) ==
LOC: ER 15:05
DX: S60.222A Contusion of left hand, initial encounter (principal); S60.212A Contusion of left wrist, initial encounter; S50.12XA Contusion of left forearm, initial encounter; F17.210 Nicotine dependence, cigarettes, uncomplicated; W18.12XA Fall from or off toilet with subsequent striking against object, initial encounter; Y92.002 Bathroom of unspecified non-institutional (private) residence as the place of occurrence of the external cause; Z90.710 Acquired absence of both cervix and uterus
CPT/HCPCS: 36415; 71046; 80053; 80307; 81001; 82550; 82553; 84484; 85025; 93005; 93010; 99284; 99406

== ENCOUNTER → 2018-12-06 | Outpatient (CLI) | payer MEDICAID, MEDICARE ==
--- NOTE | 2018-12-06 12:08 | WOMENS IMAGING REPORT ---
EXAM DESCRIPTION: BONE DENSITY HIP/SPINE COMPLETED DATE/TIME: 12/06/2018 10:39 am REASON FOR STUDY: M81.0 BONE DENSITY M81.0 AGE-RELATED OSTEOPOROSIS W/O CURRENT PATHOLOGICAL FRAC Z 12.31 ENCNTR SCREEN MAMMOGRAM FOR MALIGNANT NEOPLASM OF RICKY COMPARISON: 12/15/2015 04/27/2015 11/19/2013 TECHNIQUE: Dual-Energy X-ray Absorptiometry (DEXA) of the AP Spine and Hip. LIMITATIONS: None. FINDINGS: LUMBAR SPINE: The bone mineral density (BMD) measured from L1-L4 in the AP projection correlates with a T-score of -1.5, which is osteopenia as defined by the World Health Organization. BMD Change vs Baseline: -6.1% HIP: The bone mineral density (BMD) measured in the left hip correlates with a T-score of -2.7 in the femo ral neck, which is osteoporosis as defined by the World Health Organization. BMD Change vs Baseline: -9.1% 10 year Fracture Risk Assessment: Major Osteoporotic Fracture: Not available. Hip Fracture: Not available. IMPRESSION: 1. LUMBAR SPINE WHO CLASSIFICATION: Osteopenia 2. HIP WHO CLASSIFICATION: Osteoporosis OVERALL ASSESSMENT: WHO CLASSIFICATION: Osteopenia COMMENT: The World Health Organization defines low BMD as follows: T-score: Normal: Greater than -1.0 Osteopenia: Between -1.0 and -2.5 Osteoporosis: Less than -2.5 without fractures Established osteoporosis: Less than -2.5 with fractures In general, you may wish to consider: Diagnosis Treatment Follow-up DEXA Normal BMD Prevention 2-3 years Osteopenia Prevention/Therapy 1-2 years Osteoporosis Therapy Yearly TECHNICAL DOCUMENTATION: JOB ID: [id number] [employer]- All Rights Reserved Reading location - IP/workstation name: [email or web address]
--- NOTE | 2018-12-06 15:11 | WOMENS IMAGING REPORT ---
EXAM DESCRIPTION: BILAT SCREENING MAMMO W/CAD COMPLETED DATE/TIME: 12/06/2018 10:39 am REASON FOR STUDY: Z12.31 SCREENING CEDUXC62.0 AGE-RELATED OSTEOPOROSIS W/O CURRENT PATHOLOGICAL FRA CZ12.31 ENCNTR SCREEN MAMMOGRAM FOR MALIGNANT NEOPLASM OF RICKY COMPARISON: Multiple since 2014 EXAM PARAMETERS: Standard craniocaudal and mediolateral oblique views of each breast recorded using digital acquisition. Read with the assistance of CAD. .[facility] - [employer] Of [employer] Systems Version 9.2 LIMITATIONS: None. FINDINGS: RIGHT BREAST MASSES: No suspicious masses. CALCIFICATIONS: No new or suspicious calcifications. ARCHITECTURAL DISTORTION: None. DEVELOPING DENSITY: None. ASYMMETRY: None noted. OTHER: No other significant findings. LEFT BREAST MASSES: 1 cm nodule versus superimposed shadows, 6 o clock position periareolar, follow up cone comp ression compression mammograms in the CC and MLO orientations, left breast 90 mediolateral view, and left breast ultrasound are recommended for followup. CALCIFICATIONS: No new or suspicious calcifications. ARCHITECTURAL DISTORTION: None. DEVELOPING DENSITY: None. ASYMMETRY: None noted. OTHER: Biopsy clip 12 o'clock position left breast IMPRESSION: No mammographic evidence for malignancy right breast. Nodule versus superimposed shadows 6 o'clock position left breast, for which additional diagnostic ma mmograms and ultrasound are recommended 0 Incomplete: Needs Additional Imaging Evaluation and/or prior Mammograms for Comparison. BREAST DENSITY: c. The breasts are heterogeneously dense, which may obscure small masses. BIRAD: ASSESSMENT: 0 Incomplete: Needs Additional Imaging Evaluation and/or prior Mammograms for C omparison. RECOMMENDATION: RECOMMENDED FOLLOW-UP: Left breast diagnostic mammograms and ultrasound The patient will be contacted for additional imaging. COMMENT: The patient has been notified of the results by letter per MQSA requirements. Additional no tification policies are in place for contacting patient with suspicious or incomplete findings. Quality ID #225: The [employer] recommends an annual screening mammogram for women aged 40 years or over. This facility utilizes a reminder system to ensure that all patients receive reminder letters, and/or direct phone calls for appointments. This includes reminders for routine scr eening mammograms, diagnostic mammograms, or other Breast Imaging Interventions when appropriate. Th is patient will be placed in the appropriate reminder system. TECHNICAL DOCUMENTATION: FINDING NUMBER: (1) ASSESSMENT: (1) JOB ID: [id number] [employer]- All Rights Reserved Reading location - IP/workstation name: [email or web address]
== END ==
LOC: WI 09:45
PROVIDERS: ATTEND Family Medicine
DX: Z12.31 Encounter for screening mammogram for malignant neoplasm of breast (principal); M81.0 Age-related osteoporosis without current pathological fracture
CPT/HCPCS: 77067; 77080

== ENCOUNTER → 2018-12-19 | Outpatient (CLI) | payer MEDICAID, MEDICARE ==
--- NOTE | 2018-12-19 14:15 | WOMENS IMAGING REPORT ---
EXAM DESCRIPTION: LEFT DIAGNOSTIC MAMMO W/CAD; U/S BREAST UNILAT LIMITED COMPLETED DATE/TIME: 12/19/2018 1:29 pm; 12/19/2018 2:01 pm REASON FOR STUDY: N63.42 UNSPECIFIED LUMP IN LEFT BREAST, SUBAREOLAR; LEFT BREAST NODULE N63.42 UNS PECIFIED LUMP IN LEFT BREAST, SUBAREOLAR COMPARISON: 2016. 12/06/2018. EXAM PARAMETERS: True lateral and MLO compression views. Targeted left breast ultrasound. LIMITATIONS: None. FINDINGS: BREAST LATERALITY: Left MASSES: No suspicious masses. CALCIFICATIONS: No new or suspicious calcifications. ARCHITECTURAL DISTORTION: None. DEVELOPING DENSITY: None. ASYMMETRY: None noted. OTHER: No other significant findings. Ultrasound: Scanning of the inferior anterior breast is unremarkable. IMPRESSION: Negative diagnostic left breast imaging. BREAST DENSITY: c. The breasts are heterogeneously dense, which may obscure small masses. BIRAD: ASSESSMENT: 1 Negative. RECOMMENDATION: RECOMMENDED FOLLOW UP: Birads 1 or 2: The patient should resume routine screening . SPECIFIC INTERVENTION/IMAGING/CONSULTATION RECOMMENDED:No additional intervention/ imaging/consultati on needed at this time. COMMUNICATION:No significant abnormalities to discuss with the patient today. COMMENT: The patient has been notified of the results by letter per SA requirements. Additional no tification policies are in place for contacting patient with suspicious or incomplete findings. Quality ID #225: The [employer] recommends an annual screening mammogram for women aged 40 years or over. This facility utilizes a reminder system to ensure that all patients receive reminder letters, and/or direct phone calls for appointments. This includes reminders for routine scr eening mammograms, diagnostic mammograms, or other Breast Imaging Interventions when appropriate. Th is patient will be placed in the appropriate reminder system. TECHNICAL DOCUMENTATION: FINDING NUMBER: (1) ASSESSMENT: (1) JOB ID: [id number] [employer]- All Rights Reserved Reading location - IP/workstation name: [email or web address]
== END ==
LOC: WI 12:58
PROVIDERS: ATTEND Family Medicine
DX: N63.42 Unspecified lump in left breast, subareolar (principal)
CPT/HCPCS: 76642

== ENCOUNTER → 2019-05-31 | Outpatient (CLI) | payer MEDICARE ==
--- NOTE | 2019-05-31 15:03 | RADIOLOGY REPORT (SQ) ---
EXAM DESCRIPTION: C SP 4 OR 5 VIEWS COMPLETED DATE/TIME: 05/31/2019 2:14 pm REASON FOR STUDY: CERVICALGIA M54.2 CERVICALGIA COMPARISON: None. NUMBER OF VIEWS: Five views. TECHNIQUE: AP, lateral, obliques and odontoid radiographic images acquired of the cervical spine. LIMITATIONS: None. FINDINGS: MINERALIZATION: Decreased. ALIGNMENT: Straightening of the normal cervical lordosis. VERTEBRAE: Vertebral bodies of normal height. DISCS: Multilevel disc height loss with disc osteophyte complexes at C4-C7. FORAMINA: Cbxy-bo-pjklkbvz neural foraminal narrowing greatest at C4-C6 bilaterally. LATERAL AND POSTERIOR ELEMENTS: No fracture. Mild facet arthropathy. No dislocation. HARDWARE: None in the spine. SOFT TISSUES: No masses or calcifications. Lung apices clear. OTHER: No other significant finding. IMPRESSION: No evidence of acute bony abnormality of the cervical spine. Multilevel degenerative changes greatest at C4-C7. Tsyg-oo-zursjyzr osseous neural foraminal narrowi ng greatest at C4-C6 bilaterally. TECHNICAL DOCUMENTATION: JOB ID: [id number] [employer]- All Rights Reserved Reading location - IP/workstation name: [email or web address]
== END ==
LOC: RAD 13:41
PROVIDERS: ATTEND Family Medicine
DX: M48.02 Spinal stenosis, cervical region (principal); M54.2 Cervicalgia
CPT/HCPCS: 72050

== ENCOUNTER 2019-06-30 15:55 | Inpatient (IN) | payer MEDICARE ==
--- NOTE | 2019-06-30 16:21 | ER Document Report ---
ED Medical Screen (RME) - General Chief Complaint: Fall Stated Complaint: FALL/BACK PAIN Time Seen by Provider: 06/30/19 16:15 Primary Care Provider: BARBIE READ DO [Primary Care Provider] - Follow up as needed Notes: HPI: 69-year-old female presenting to the emergency department for evaluation of a possible rectal or gluteal abscess. Patient states she had a hard bowel movement approximately a week ago and began having increasing pain next to the rectum on the left side. States she did have a subjective fever for 2 or 3 days does not have a fever today. Patient states that the area feels like it is increasing in size she has not been able to look at it to evaluate whether it is red or not. I have greeted and performed a rapid initial assessment of this patient. A comprehensive ED assessment and evaluation of the patient, analysis of test results and completion of the medical decision making process will be conducted by additional ED providers PHYSICAL EXAMINATION: Examination of the gluteal region is deferred in triage, patient will need a better room to disrobe for further examination I have greeted and performed a rapid initial assessment of this patient. A comprehensive ED assessment and evaluation of the patient, analysis of test results and completion of medical decision making process will be conducted by an additional ED providers. TRAVEL OUTSIDE OF THE [place] IN LAST 30 DAYS: No - Related Data Allergies/Adverse Reactions: pregabalin [From Lyrica] Adverse Reaction (Severe, Verified 06/30/19 16:14) fuzzy headed Past Medical History - Past Medical History Cardiac Medical History: Reports: Hx Coronary Artery Disease Pulmonary Medical History: Reports: Hx Bronchitis, Hx Pneumonia Neurological Medical History: Reports: Hx Migraine. Denies: Hx Seizures Renal/ Medical History: Denies: Hx Peritoneal Dialysis GI Medical History: Reports: Hx Gastroesophageal Reflux Disease, Hx Irritable Bowel, Hx Ulcerative Colitis - ULERATIVE COLITIS, IBS, Musculoskeltal Medical History: Reports Hx Arthritis - OA, Reports Hx Fibromyalgia - chronic pain syndrome Psychiatric Medical History: Reports: Hx Anxiety, Hx Depression, Hx Post Traumatic Stress Disorder Past Surgical History: Reports: Hx Hysterectomy, Hx Orthopedic Surgery - L ELBOW NERVE TRANSFER, Hx Tubal Ligation - Immunizations Hx Diphtheria, Pertussis, Tetanus Vaccination: Yes - May 2017 Physical Exam - Vital signs Vitals: Temp Pulse Resp BP Pulse Ox 98.7 F 75 14 124/91 H 100 06/30/19 16:02 04/12/20 16:02 06/30/19 16:02 06/30/19 16:02 06/30/19 16:02 Course - Vital Signs Vital signs: Temp Pulse Resp BP Pulse Ox 98.7 F 75 14 124/91 H 100 06/30/19 16:02 06/30/19 16:02 06/30/19 16:02 06/30/19 16:02 06/30/19 16:02 Doctor's Discharge - Discharge Referrals: BARBIE READ DO [Primary Care Provider] - Follow up as needed
[2019-06-30 16:55] LABS: HEMATOCRIT 31.9 % (36.0-47.0); HEMOGLOBIN 11.4 g/dL (12.0-15.5); MEAN CORPUSCULAR HEMOGLOBIN 35.3 pg (27.0-33.4); MEAN CORPUSCULAR HGB CONC 35.8 g/dL (32.0-36.0); MEAN CORPUSCULAR VOLUME 99 fl (80-97); PLATELET COUNT 202 10^3/uL (150-450); RED BLOOD COUNT 3.23 10^6/uL (3.72-5.28); RED CELL DISTRIBUTION WIDTH 13.4 % (11.5-14.0); WHITE BLOOD COUNT 19.2 10^3/uL (4.0-10.5)
[2019-06-30 17:16] LABS: ALKALINE PHOSPHATASE 67 U/L (38-126); ANION GAP 7 (5-19); ASPARTATE AMINO TRANSFERASE 32 U/L (14-36); BILIRUBIN,DIRECT 0.2 mg/dL (0.0-0.4); BILIRUBIN,TOTAL 2.5 mg/dL (0.2-1.3); BLOOD UREA NITROGEN 40 mg/dL (7-20); CALCIUM 8.3 mg/dL (8.4-10.2); CARBON DIOXIDE 26 mmol/L (22-30); CHLORIDE 97 mmol/L (98-107); GLUCOSE 114 mg/dL (75-110); POTASSIUM 3.8 mmol/L (3.6-5.0); TOTAL PROTEIN 5.5 g/dL (6.3-8.2)
[2019-06-30 17:18] LABS: ABSOLUTE LYMPHOCYTES# (MANUAL) 0.2 10^3/uL (0.5-4.7); ABSOLUTE MONOCYTES # (MANUAL) 1.3 10^3/uL (0.1-1.4); BAND NEUTROPHILS % (MANUAL) 1 % (3-5); BASOPHILS % (MANUAL) 0 % (0-2); EOSINOPHILS % (MANUAL) 2 % (0-6); LYMPHOCYTES % (MANUAL) 1 % (13-45); MONOCYTES % (MANUAL) 7 % (3-13); SEGMENTED NEUTROPHILS % (MAN) 89 % (42-78); TOTAL CELLS COUNTED 100
[2019-06-30 17:19] LABS: PLATELET COMMENT ADEQUATE; TOXIC GRANULATION 1+
--- NOTE | 2019-06-30 17:32 | RADIOLOGY REPORT (SQ) ---
EXAM DESCRIPTION: T SPINE AP/LAT IMAGES COMPLETED DATE/TIME: 06/30/2019 5:16 pm REASON FOR STUDY: fall COMPARISON: None. NUMBER OF VIEWS: Two views. TECHNIQUE: AP and lateral radiographic images acquired of the thoracic spine. LIMITATIONS: None. FINDINGS: MINERALIZATION: Osteopenia ALIGNMENT: Thoracolumbar scoliosis convex left VERTEBRAE: No fracture or bone lesion. Maintained height, normal segmentation. DISCS: No significant loss of height or significant narrowing. No large osteophytes. HARDWARE: None in the spine. MEDIASTINUM AND SOFT TISSUES: Normal heart size and aortic contour. No soft tissue abnormality. VISUALIZED LUNG JEAN-BAPTISTE: Clear. OTHER: No other significant finding. IMPRESSION: No acute fracture. TECHNICAL DOCUMENTATION: JOB ID: [id number] 2010 [employer]- All Rights Reserved Reading location - IP/workstation name: [email or web address]
--- NOTE | 2019-06-30 17:32 | RADIOLOGY REPORT (SQ) ---
EXAM DESCRIPTION: RIBS RIGHT W/PA CHEST IMAGES COMPLETED DATE/TIME: 06/30/2019 5:16 pm REASON FOR STUDY: right post rib pain fall COMPARISON: None. TECHNIQUE: Frontal view of the chest and additional views of the right ribs acquired. NUMBER OF VIEWS: Three view. LIMITATIONS: None. FINDINGS: FRONTAL CXR: No pneumothorax. No pleural effusion. No atelectasis or infiltrates. RIBS: No displaced rib fractures. No lytic or blastic bony lesions. OTHER: No other significant finding. IMPRESSION: NO PNEUMOTHORAX. NO DISPLACED RIB FRACTURES. COMMENT: SITE OF TRAUMA/COMPLAINT MARKED/STAMP COMPLETED: No TECHNICAL DOCUMENTATION: JOB ID: [id number] 2010 [employer]- All Rights Reserved Reading location - IP/workstation name: [email or web address]
[2019-06-30] MEDS ORDERED: CEFEPIME INJ 1 GM VIAL IM ONE (20:57)
[2019-06-30] MEDS ORDERED: NORMAL SALINE IV ONE (20:57)
[2019-06-30] MEDS ORDERED: CEFEPIME 2 GM/D5W RTU 50 ML IV ONE (21:30)
[2019-06-30] MEDS ORDERED: CEFEPIME INJ 1 GM VIAL IV ONE (22:01)
[2019-06-30 22:20] LABS: VENOUS BLOOD BASE EXCESS -1.1 mmol/L; VENOUS BLOOD HCO3 23.7 mmol/L (20-32); VENOUS BLOOD PCO2 39.9 mmHg (35-63); VENOUS BLOOD PH 7.39 (7.30-7.42)
[2019-06-30 22:30] LABS: PROTHROMBIN TIME 16.3 SEC (11.4-15.4)
--- NOTE | 2019-06-30 22:30 | EKG REPORT ---
SEVERITY:- NORMAL ECG - SINUS RHYTHM : Confirmed by: Sanaz Erwin MD 30-Jun-2019 22:29:22
--- NOTE | 2019-07-01 00:01 | ER Document Report ---
Entered by JANI YEH SCRIBE 06/30/192026 Acting as scribe for:RAZ KAPOOR IV, MD ED General - General Chief Complaint: Rectal Pain Stated Complaint: FALL/BACK PAIN Time Seen by Provider: 06/30/19 16:15 Primary Care Provider: BARBIE READ DO [Primary Care Provider] - Follow up as needed Mode of Arrival: Wheelchair Information source: Patient Notes: This 69 year old female patient presents to the ED today with complaints of a possible rectal or gluteal abscess for the past x1 week. Patient states that she had a hard bowel movement approximately x1 week ago and has been having increasing pain next to the rectum on the left side since onset. The pain is worse with sitting or movement. She notes that the area feels like it has been increasing in size since onset, but states that she has not been able to evaluate it any further. She states that she thinks the area "perforated" after her last bowel movement x2 days ago. She also notes a subjective fever for the past x2-3 days, but denies having a fever today. Patient also reports back and right side pain status post fall that occurred some time this morning. She state s that she was walking into her laundry room when she fell backwards onto some boxes and cans, landing on her back and right side. She denies head injury or loss of consciousness. Denies history of diabetes. TRAVEL OUTSIDE OF THE [place] IN LAST 30 DAYS: No - Related Data Allergies/Adverse Reactions: pregabalin [From Lyrica] Adverse Reaction (Severe, Verified 06/30/19 16:14) fuzzy headed Past Medical History - General Information source: Patient, [facility] Records - Social History Smoking Status: Unknown if Ever Smoked Cigarette use (# per day): No Chew tobacco use (# tins/day): No Smoking Education Provided: No Frequency of alcohol use: None Drug Abuse: None Lives with: Alone Family History: Reviewed & Not Pertinent, CAD, DM, Hyperlipidemia, Hypertension, Malignancy Patient has suicidal ideation: No Patient has homicidal ideation: No - Past Medical History Cardiac Medical History: Reports: Hx Coronary Artery Disease Pulmonary Medical History: Reports: Hx Bronchitis, Hx Pneumonia Neurological Medical History: Reports: Hx Migraine GI Medical History: Reports: Hx Gastroesophageal Reflux Disease, Hx Irritable Bowel, Hx Ulcerative Colitis - ULERATIVE COLITIS, IBS, Musculoskeletal Medical History: Reports Hx Arthritis - OA, Reports Hx Fibromyalgia - chronic pain syndrome Psychiatric Medical History: Reports: Hx Anxiety, Hx Depression, Hx Post Traumatic Stress Disorder Past Surgical History: Reports: Hx Hysterectomy, Hx Orthopedic Surgery - L ELBOW NERVE TRANSFER, Hx Tubal Ligation - Immunizations Hx Diphtheria, Pertussis, Tetanus Vaccination: Yes - May 2017 Hx Pneumococcal Vaccination: 12/18/17 Review of Systems - Review of Systems Constitutional: See HPI, Fever EENT: No symptoms reported Cardiovascular: No symptoms reported Respiratory: No symptoms reported Gastrointestinal: See HPI, Other - Rectal pain Genitourinary: No symptoms reported Female Genitourinary: No symptoms reported Musculoskeletal: See HPI, Back pain, Muscle pain. denies: Other - Head injury Skin: See HPI, Other - Gluteal or rectal abscess Hematologic/Lymphatic: No symptoms reported Neurological/Psychological: See HPI. denies: Lost consciousness -: Yes All other systems reviewed and negative Physical Exam - Vital signs Vitals: Temp Pulse Resp BP Pulse Ox 98.7 F 75 14 124/91 H 100 06/30/19 16:02 06/30/19 16:02 06/30/19 16:02 06/30/19 16:02 06/30/19 16:02 - General General appearance: Alert In distress: None - HEENT Head: Normocephalic, Atraumatic Eyes: Normal Pupils: PERRL - Respiratory Respiratory status: No respiratory distress Chest status: Nontender Breath sounds: Normal Chest palpation: Normal - Cardiovascular Rhythm: Regular Heart sounds: Normal auscultation Murmur: No Friction rub: No Gallop: None auscultated - Abdominal Inspection: Normal Distension: No distension Bowel sounds: Normal Tenderness: Nontender - Abdomen soft Organomegaly: No organomegaly - Rectal Hemorrhoids: External - Several large external hemorrhoids that do not appear to be thrombosed. Notes: Female car tracer present - Extremities General upper extremity: Normal inspection General lower extremity: Normal inspection - Neurological Neuro grossly intact: Yes - Psychological Associated symptoms: Normal affect, Normal mood - Skin Skin Temperature: Warm Skin Moisture: Dry Skin Color: Normal Skin irregularity: Abscess - 2 cm long x 1.5 cm wide area of abscess noted with fluctuant necrotic skin at the site on left buttock. Minimal purulent discharge noted. There is 8 cm of surrounding erythema that feels indurated, but not fluctuant on left buttock. Course - Re-evaluation Re-evalutation: 07/01/19 01:29 Results of ED MSE discussed with patient. All questions were answered. - Vital Signs Vital signs: Temp Pulse Resp BP Pulse Ox 103 F H 75 19 105/47 L 95 07/01/19 01:44 06/30/19 16:02 07/01/19 00:13 07/01/19 00:13 07/01/19 00:13 - Laboratory Result Diagrams: 06/30/19 16:38 06/30/19 16:38 Laboratory results interpreted by me: 06/30/19 06/30/19 06/30/19 16:38 16:38 19:55 WBC 19.2 H RBC 3.23 L Hgb 11.4 L Hct 31.9 L MCV 99 H MCH 35.3 H Seg Neuts % (Manual) 89 H Band Neutrophils % 1 L Lymphocytes % (Manual) 1 L Abs Neuts (Manual) 17.3 H Abs Lymphs (Manual) 0.2 L PT Sodium 130.2 L Chloride 97 L BUN 40 H Creatinine 1.66 H Est GFR ( Amer) 37 L Est GFR (MDRD) Non-Af 30 L Glucose 114 H Lactic Acid 2.8 H Calcium 8.3 L Total Bilirubin 2.5 H Total Protein 5.5 L Albumin 3.0 L 06/30/19 22:14 WBC RBC Hgb Hct MCV MCH Seg Neuts % (Manual) Band Neutrophils % Lymphocytes % (Manual) Abs Neuts (Manual) Abs Lymphs (Manual) PT 16.3 H Sodium Chloride BUN Creatinine Est GFR ( Amer) Est GFR (MDRD) Non-Af Glucose Lactic Acid Calcium Total Bilirubin Total Protein Albumin - EKG Interpretation by Me Additional EKG results interpreted by me: 07/01/19 01:29 EKG obtained on 06/30/2019 at 2131 was interpreted by this MD. Findings: Normal sinus rhythm, heart rate 86, normal axis, P waves proceed QRS complexes, QRS complexes appear narrow, there are no obvious patterns of ST segment elevation or depression present to suggest acute myocardial ischemia or infarction. Impression: Normal sinus rhythm with nonspecific ST segments. - Consults dr. franklin Time consulted: 01:23 Reason for consultation: 07/01/19 01:34 soft tissue infection of buttocks and perineum Consulted provider: will come to ER dr. griffin Time consulted: 01:29 Reason for consultation: 07/01/19 01:34 soft tissue infection of buttocks and perineum with emphysema Consulted provider: will come to ER Critical Care Note - Critical Care Note Total time excluding time spent on procedures (mins): 120 Discharge - Discharge Clinical Impression: Soft tissue infection Condition: Serious Disposition: ADMITTED INPATIENT Admitting Provider: Jailene (Hospitalist) Unit Admitted: IMCU Referrals: BARBIE READ, [Primary Care Provider] - Follow up as needed I personally performed the services described in the documentation, reviewed and edited the documentation which was dictated to the scribe in my presence, and it accurately records my words and actions.
--- NOTE | 2019-07-01 00:43 | RADIOLOGY REPORT (SQ) ---
EXAM DESCRIPTION: CT ABDOMEN PELVIS WITH IV CONTRAST COMPLETED DATE/TME: 06/30/2019 21:01 CLINICAL HISTORY: 69 years Female, leukocytosis, perirectal abscess Comparison: 06/15/2016. Technique: IV contrast. Coronal and sagittal reformat. This exam was performed according to our departmental dose-optimization program, which includes automated exposure control, adjustment of the mA and/or kV according to patient size and/or use of iterative reconstruction technique. [facility]: Dose Right [facility]: CareDose [facility]: Dose Right [facility]: Teradose 4D [facility]: Nor1 LIMITATIONS: Arm position. Findings: Cholecystectomy. Atelectasis/scar. Old granulomatous disease. Periportal lucencies, nonspecific. Colonic stool retention. Orally administered contrast is seen to the level of the mid small bowel. 2.6 cm diameter small bowel with air-fluid levels indicative of ileus or low-grade obstruction. Soft tissue emphysema of subcutaneous bilateral buttocks and perineum, left more than right. Soft tissue opacity at the pelvic floor may indicate phlegmon or rectal prolapse. No significant drainable fluid collection or abscess. Moderate inguinal lymphadenopathy. Differential etiologies include iatrogenic and advanced /necrotizing infectious. Indeterminate 2.5 cm lesion of the upper pole of the left kidney. Differential diagnosis includes neoplasm. Recommend dynamic contrast CT or MRI of the kidneys. Grade 1 L4 anterolisthesis. No ascites. Inferior thorax, liver, pancreas, spleen, adrenals, right kidney, gastrointestinal tract, pelvic organs, lymphatics, vasculature, and musculoskeleton appear otherwise unremarkable. IMPRESSION: 1. 2.5 cm lesion of the upper pole of the left kidney. Differential diagnosis includes neoplasm. Recommend dynamic contrast CT or MRI of the kidneys. 2. Soft tissue emphysema of subcutaneous bilateral buttocks and perineum, left more than right. Soft tissue opacity at the pelvic floor may indicate phlegmon or rectal prolapse. No significant drainable fluid collection or abscess. Moderate inguinal lymphadenopathy. Differential etiologies include iatrogenic and advanced /necrotizing infectious. 3. Colonic stool retention. Orally administered contrast is seen to the level of the mid small bowel. 2.6 cm diameter small bowel with air-fluid levels indicative of ileus or low-grade obstruction.
[2019-07-01] MEDS ORDERED: PIPERACILLIN/TAZOBACTAM 4.5 GM VIAL IV ONE (01:27)
[2019-07-01] MEDS ORDERED: VANCOMYCIN HCL INJ 1000 MG VIAL IV ONE (01:27)
[2019-07-01] MEDS ORDERED: RINGERS SOLUTION,LACTATED 1,000 ML IV ONE (02:02)
[2019-07-01] MEDS ORDERED: ONDANSETRON HCL INJ/PF 4 MG/2 ML SDV IV PRN ×2 (02:17→13:30)
[2019-07-01] MEDS ORDERED: RINGERS SOLUTION,LACTATED 1,000 ML IV PRN (02:17)
[2019-07-01] MEDS ORDERED: MAG HYDROX/AL HYDROX/SIMETH SUSP 30 ML UDCUP PO PRN (02:17)
[2019-07-01] MEDS ORDERED: MAGNESIUM HYDROXIDE SUSP 30 ML UDCUP PO PRN (02:17)
--- NOTE | 2019-07-01 02:20 | PDOC CONSULTATION ---
Consultation Consult Date: 07/01/19 Attending physician:: RAZ KAPOOR IV Provider Consulted: TYRESE BECKER Consult reason:: buttock soft tissue infection History of Present Illness Admission Date/PCP: BARBIE READ DO History of Present Illness: JAZMÍN COSBY is a 69 year old female patient presents to the ED today with complaints of a possible rectal or gluteal abscess for the past x1 week. Patient states that she had a hard bowel movement approximately x1 week ago and has been having increasing pain next to the rectum on the left side since onset. The pain is worse with sitting or movement. She notes that the area feels like it has been increasing in size since onset, but states that she has not been able to evaluate it any further. She states that she thinks the area "perforated" after her last bowel movement x2 days ago. She also notes a subjective fever for the past x2-3 days, but denies having a fever today. Patient also reports back and right side pain status post fall that occurred some time this morning. She states that she was walking into her laundry room when she fell backwards onto some boxes and cans, landing on her back and right side. She denies head injury or loss of consciousness. Denies history of diabetes. Past Medical History Cardiac Medical History: Reports: Coronary Artery Disease Pulmonary Medical History: Reports: Bronchitis, Pneumonia Neurological Medical History: Reports: Migraine Denies: Seizures GI Medical History: Reports: Gastroesophageal Reflux Disease, Ulcerative Colitis - ULERATIVE COLITIS, IBS, Musculoskeltal Medical History: Reports: Arthritis - OA, Fibromyalgia - chronic pain syndrome Psychiatric Medical History: Reports: Depression, Post Traumatic Stress Disorder Hematology: Denies: Anemia Past Surgical History Past Surgical History: Reports: Hysterectomy, Orthopedic Surgery - L ELBOW NERVE TRANSFER, Tubal Ligation Social History Lives with: Alone Smoking Status: Unknown if Ever Smoked Family History Family History: Reviewed & Not Pertinent, CAD, DM, Hyperlipidemia, Hypertension, Malignancy Parental Family History Reviewed: No Children Family History Reviewed: NA Sibling(s) Family History Reviewed.: NA Medication/Allergy Home Medications: Albuterol Sulfate [Proair HFA] 2 puff IH ASDIR PRN 12/03/13 Aspirin [Aspirin EC] 81 mg PO DAILY 12/03/13 Budesonide [Budesonide EC] 3 cap PO DAILY 12/03/13 Carvedilol [Coreg] 6.25 mg PO BID 12/03/13 Fish Oil/Dha/Epa [Fish Oil 1,200 mg Fish Oil] 1,200 mg PO DAILY 12/03/13 Gabapentin [Neurontin 300 mg Capsule] 300 mg PO BID 12/03/13 Levothyroxine Sodium 0.5 mg PO DAILY 12/03/13 Potassium Chloride 2 cap PO DAILY 12/03/13 Propylene Glycol/Peg 400 [Systane Liquid Gel Eye Drops] 1 drop OU Q4H 12/03/13 Spironolactone 25 mg PO DAILY 12/03/13 Tiotropium [place] [Spiriva Handihaler 18 mcg/dose (30 Dose)] 2 puff IH DAILY 12/03/13 Citalopram Hydrobromide [Celexa 20 mg Tablet] 20 mg PO DAILY 12/25/13 Naproxen 500 mg PO BID #14 tablet 10/18/14 Calcium Carbonate [Calcium] 1,200 mg PO BID 05/26/16 Nitrofurantoin Macrocrystal [Nitrofurantoin] 100 mg PO BID 05/26/16 Atorvastatin Calcium 40 mg PO DAILY 01/11/17 Cyclobenzaprine HCl 10 mg PO Q4H PRN 01/11/17 Dexlansoprazole [Dexilant 60 mg Capsule] 60 mg PO DAILY 01/11/17 Furosemide 20 mg PO DAILY 01/11/17 Oxycodone HCl/Acetaminophen [Oxycodon-Acetaminophen 7.5-325] 1 each PO Q6H PRN 01/11/17 Allergies/Adverse Reactions: pregabalin [From Lyrica] Adverse Reaction (Severe, Verified 06/30/19 16:14) fuzzy headed Review of Systems Constitutional: PRESENT: fever(s), headache(s) Eyes: ABSENT: as per HPI, visual disturbances, other Ears: PRESENT: as per HPI Nose, Mouth, and Throat: ABSENT: as per HPI, headache(s), mouth pain, sore throat, vertigo, other Breasts: ABSENT: as per HPI, other Cardiovascular: ABSENT: as per HPI, chest pain, dyspnea on exertion, edema, orthropnea, palpitations, other Respiratory: ABSENT: as per HPI, cough, dyspnea, hemoptysis, sputum, other Gastrointestinal: PRESENT: constipation, other - bilat rectal,buttock pain Genitourinary: ABSENT: as per HPI, difficulty urinating, dysuria, hematuria, nocturia, other Musculoskeletal: ABSENT: as per HPI, back pain, deformity, joint swelling, muscle weakness, other Integumentary: ABSENT: as per HPI, diaphoresis, erythema, lesions, pruritus, rash, wounds, other Neurological: ABSENT: as per HPI, abnormal gait, abnormal movements, abnormal speech, confusion, convulsions, dizziness, focal weakness, frequent falls, lack of coordination, memory loss, numbness, paresthesias, restless legs, syncope, tingling, tremor(s), vertigo, weakness, other Psychiatric: ABSENT: as per HPI, anxiety, depression, hallucinations, homidical ideation, suicidal ideation, other Endocrine: ABSENT: as per HPI, cold intolerance, flushing, heat intolerance, menstrual abnormalities, polydipsia, polyphagia, polyuria, other Hematologic/Lymphatic: ABSENT: as per HPI, easy bleeding, easy bruising, lymphadenopathy, other Allergic/Immunologic: ABSENT: as per HPI, seasonal rhinorrhea, other Physical Exam Vital Signs: Temp Pulse Resp BP Pulse Ox 103 F H 75 19 105/47 L 95 07/01/19 01:44 06/30/19 16:02 07/01/19 00:13 07/01/19 00:13 07/01/19 00:13 Intake & Output 06/29/19 06/30/19 07/01/19 06:59 06:59 06:59 Intake Total 1989 Balance 1989 Weight 66.3 kg General appearance: PRESENT: cooperative, mild distress, thin Head exam: PRESENT: atraumatic Eye exam: PRESENT: EOMI Ear exam: PRESENT: normal external ear exam Mouth exam: PRESENT: dry mucosa Teeth exam: PRESENT: poor dentation Neck exam: PRESENT: full ROM Respiratory exam: PRESENT: clear to auscultation florentin Cardiovascular exam: PRESENT: RRR, tachycardia Pulses: PRESENT: normal radial pulses, normal femoral pulses Vascular exam: PRESENT: normal capillary refill Breast: PRESENT: Normal GI/Abdominal exam: PRESENT: soft Rectal exam: PRESENT: hemorrhoids, other - bilat swelling of both buttocks with palp crepitance,emitating from upper buttock cleft. celluliltis of both buttocks. large hemorrhoids. Gentrourinary exam: PRESENT: indwelling catheter Extremities exam: PRESENT: full ROM Musculoskeletal exam: PRESENT: full ROM Neurological exam: PRESENT: alert, awake, oriented to person, oriented to place, oriented to time Psychiatric exam: PRESENT: anxious Skin exam: PRESENT: dry Results Laboratory Results: 06/30/19 16:38 06/30/19 16:38 06/30/19 06/30/19 06/30/19 16:38 16:38 19:55 WBC 19.2 H RBC 3.23 L Hgb 11.4 L Hct 31.9 L MCV 99 H MCH 35.3 H MCHC 35.8 RDW 13.4 Plt Count 202 Seg Neutrophils % Not Reportable VBG pH VBG pCO2 VBG HCO3 VBG Base Excess Sodium 130.2 L Potassium 3.8 Chloride 97 L Carbon Dioxide 26 Anion Gap 7 BUN 40 H Creatinine 1.66 H Est GFR ( Amer) 37 L Glucose 114 H Lactic Acid 2.8 H Calcium 8.3 L Total Bilirubin 2.5 H AST 32 Alkaline Phosphatase 67 Total Protein 5.5 L Albumin 3.0 L 06/30/19 22:14 WBC RBC Hgb Hct MCV MCH MCHC RDW Plt Count Seg Neutrophils % VBG pH 7.39 VBG pCO2 39.9 VBG HCO3 23.7 VBG Base Excess -1.1 Sodium Potassium Chloride Carbon Dioxide Anion Gap BUN Creatinine Est GFR ( Amer) Glucose Lactic Acid Calcium Total Bilirubin AST Alkaline Phosphatase Total Protein Albumin Impressions: Thoracic Spine X-Ray 06/30/19 16:30 IMPRESSION: No acute fracture. Ribs w/Chest X-Ray 06/30/19 16:31 IMPRESSION: NO PNEUMOTHORAX. NO DISPLACED RIB FRACTURES. Abdomen/Pelvis CT 06/30/19 21:01 IMPRESSION: 1. 2.5 cm lesion of the upper pole of the left kidney. Differential diagnosis includes neoplasm. Recommend dynamic contrast CT or MRI of the kidneys. 2. Soft tissue emphysema of subcutaneous bilateral buttocks and perineum, left more than right. Soft tissue opacity at the pelvic floor may indicate phlegmon or rectal prolapse. No significant drainable fluid collection or abscess. Moderate inguinal lymphadenopathy. Differential etiologies include iatrogenic and advanced /necrotizing infectious. 3. Colonic stool retention. Orally administered contrast is seen to the level of the mid small bowel. 2.6 cm diameter small bowel with air-fluid levels indicative of ileus or low-grade obstruction. Assessment & Plan - Plan Summary Plan Summary: pt has bilateral buttock abscess, soft tissue infection, possible perirectal fistula resulting in sepsis plan, iv hydrationk, abx to or for debridement, exam under anesthesia,
[2019-07-01] MEDS ORDERED: ACETAMINOPHEN 325 MG SUPP.RECT PR ONE (02:36)
[2019-07-01 02:39] LABS: APPEARANCE,URINE CLOUDY; BILIRUBIN,URINE NEGATIVE (NEGATIVE); COLOR,URINE YELLOW; GLUCOSE, URINE NEGATIVE (NEGATIVE); KETONES,URINE TRACE mg/dL (NEGATIVE); PROTEIN,URINE 100 mg/dL (NEGATIVE); URINE SPECIFIC GRAVITY 1.027; UROBILINOGEN,URINE NEGATIVE mg/dL (<2.0)
--- NOTE | 2019-07-01 02:51 | PDOC H&P ---
History of Present Illness Admission Date/PCP: BARBIE MOON DO Patient complains of: Fever with firm painful area on the buttock History of Present Illness: JAZMÍN COSBY is a 69 year old female with a complex medical history the details of which she is unable to provide at this time. Based on her medication list she likely has hypothyroidism, depression, ulcerative colitis, COPD and she reports a bulging heart valve with hypertension but she is on multiple medications suggesting possible heart failure. She is being taken to the operating room immediately. She has a perianal abscesses affecting both buttock. She qualifies for sepsis with low blood pressure, fever, altered mental status and acute kidney injury. Past Medical History Cardiac Medical History: Reports: Coronary Artery Disease Pulmonary Medical History: Reports: Bronchitis, Pneumonia Neurological Medical History: Reports: Migraine Denies: Seizures GI Medical History: Reports: Gastroesophageal Reflux Disease, Ulcerative Colitis - ULERATIVE COLITIS, IBS, Musculoskeltal Medical History: Reports: Arthritis - OA, Fibromyalgia - chronic pain syndrome Psychiatric Medical History: Reports: Depression, Post Traumatic Stress Disorder Hematology: Denies: Anemia Past Surgical History Past Surgical History: Reports: Hysterectomy, Orthopedic Surgery - L ELBOW NERVE TRANSFER, Tubal Ligation Social History Information Source: Patient, Emergency Med Personnel, [facility] Records Lives with: Alone Smoking Status: Current Every Day Smoker Electronic Cigarette use?: No Frequency of Alcohol Use: None Hx Recreational Drug Use: No Hx Prescription Drug Abuse: No - Advance Directive Resuscitation Status: Full Code Family History Family History: Reviewed & Not Pertinent, CAD, DM, Hyperlipidemia, Hypertension, Malignancy Parental Family History Reviewed: Yes Children Family History Reviewed: Yes Sibling(s) Family History Reviewed.: Yes Medication/Allergy Home Medications: Albuterol Sulfate [Proair HFA] 2 puff IH ASDIR PRN 12/03/13 Aspirin [Aspirin EC] 81 mg PO DAILY 12/03/13 Budesonide [Budesonide EC] 3 cap PO DAILY 12/03/13 Carvedilol [Coreg] 6.25 mg PO BID 12/03/13 Fish Oil/Dha/Epa [Fish Oil 1,200 mg Fish Oil] 1,200 mg PO DAILY 12/03/13 Gabapentin [Neurontin 300 mg Capsule] 300 mg PO BID 12/03/13 Levothyroxine Sodium 0.5 mg PO DAILY 12/03/13 Potassium Chloride 2 cap PO DAILY 12/03/13 Propylene Glycol/Peg 400 [Systane Liquid Gel Eye Drops] 1 drop OU Q4H 12/03/13 Spironolactone 25 mg PO DAILY 12/03/13 Tiotropium Sheridan [Spiriva Handihaler 18 mcg/dose (30 Dose)] 2 puff IH DAILY 12/03/13 Citalopram Hydrobromide [Celexa 20 mg Tablet] 20 mg PO DAILY 12/25/13 Naproxen 500 mg PO BID #14 tablet 10/18/14 Calcium Carbonate [Calcium] 1,200 mg PO BID 05/26/16 Nitrofurantoin Macrocrystal [Nitrofurantoin] 100 mg PO BID 05/26/16 Atorvastatin Calcium 40 mg PO DAILY 01/11/17 Cyclobenzaprine HCl 10 mg PO Q4H PRN 01/11/17 Dexlansoprazole [Dexilant 60 mg Capsule] 60 mg PO DAILY 01/11/17 Furosemide 20 mg PO DAILY 01/11/17 Oxycodone HCl/Acetaminophen [Oxycodon-Acetaminophen 7.5-325] 1 each PO Q6H PRN 01/11/17 Allergies/Adverse Reactions: pregabalin [From Lyrica] Adverse Reaction (Severe, Verified 06/30/19 16:14) fuzzy headed Review of Systems All systems: reviewed and no additional remarkable complaints except as stated Constitutional: PRESENT: chills, fever(s) Gastrointestinal: PRESENT: constipation, heartburn Neurological: PRESENT: confusion Psychiatric: PRESENT: depression Endocrine: PRESENT: other - Hypothyroidism Physical Exam Vital Signs: Temp Pulse Resp BP Pulse Ox 103 F H 75 19 105/47 L 95 07/01/19 01:44 06/30/19 16:02 07/01/19 00:13 07/01/19 00:13 07/01/19 00:13 Intake & Output 06/29/19 06/30/19 07/01/19 06:59 06:59 06:59 Intake Total 1989 Balance 1989 Weight 66.3 kg General appearance: PRESENT: cooperative - Limited cooperation due to confusion from sepsis, severe distress, well-developed Head exam: PRESENT: atraumatic, normocephalic Eye exam: PRESENT: conjunctiva pink. ABSENT: scleral icterus Ear exam: PRESENT: normal external ear exam. ABSENT: bleeding, drainage Mouth exam: PRESENT: moist, tongue midline Respiratory exam: PRESENT: clear to auscultation florentin, symmetrical, unlabored. ABSENT: rales, rhonchi, tachypnea, wheezes Cardiovascular exam: PRESENT: +S1, +S2, tachycardia GI/Abdominal exam: PRESENT: diminished bowel sounds, soft. ABSENT: distended, guarding, tenderness Rectal exam: PRESENT: deferred Gentrourinary exam: PRESENT: indwelling catheter Extremities exam: PRESENT: pedal edema, +1 edema Musculoskeletal exam: PRESENT: normal inspection Neurological exam: PRESENT: alert, altered, awake, oriented to person, oriented to place Psychiatric exam: PRESENT: anxious. ABSENT: agitated Focused psych exam: ABSENT: delusional, paranoid, restlessness Results Laboratory Results: 06/30/19 16:38 06/30/19 16:38 06/30/19 06/30/19 06/30/19 16:38 16:38 19:55 WBC 19.2 H RBC 3.23 L Hgb 11.4 L Hct 31.9 L MCV 99 H MCH 35.3 H MCHC 35.8 RDW 13.4 Plt Count 202 Seg Neutrophils % Not Reportable VBG pH VBG pCO2 VBG HCO3 VBG Base Excess Sodium 130.2 L Potassium 3.8 Chloride 97 L Carbon Dioxide 26 Anion Gap 7 BUN 40 H Creatinine 1.66 H Est GFR ( Amer) 37 L Glucose 114 H Lactic Acid 2.8 H Calcium 8.3 L Total Bilirubin 2.5 H AST 32 Alkaline Phosphatase 67 Total Protein 5.5 L Albumin 3.0 L 06/30/19 22:14 WBC RBC Hgb Hct MCV MCH MCHC RDW Plt Count Seg Neutrophils % VBG pH 7.39 VBG pCO2 39.9 VBG HCO3 23.7 VBG Base Excess -1.1 Sodium Potassium Chloride Carbon Dioxide Anion Gap BUN Creatinine Est GFR ( Amer) Glucose Lactic Acid Calcium Total Bilirubin AST Alkaline Phosphatase Total Protein Albumin Impressions: Thoracic Spine X-Ray 06/30/19 16:30 IMPRESSION: No acute fracture. Ribs w/Chest X-Ray 06/30/19 16:31 IMPRESSION: NO PNEUMOTHORAX. NO DISPLACED RIB FRACTURES. Abdomen/Pelvis CT 06/30/19 21:01 IMPRESSION: 1. 2.5 cm lesion of the upper pole of the left kidney. Differential diagnosis includes neoplasm. Recommend dynamic contrast CT or MRI of the kidneys. 2. Soft tissue emphysema of subcutaneous bilateral buttocks and perineum, left more than right. Soft tissue opacity at the pelvic floor may indicate phlegmon or rectal prolapse. No significant drainable fluid collection or abscess. Moderate inguinal lymphadenopathy. Differential etiologies include iatrogenic and advanced /necrotizing infectious. 3. Colonic stool retention. Orally administered contrast is seen to the level of the mid small bowel. 2.6 cm diameter small bowel with air-fluid levels indicative of ileus or low-grade obstruction. Assessment and Plan - Diagnosis (1) Sepsis Qualifiers: Sepsis type: sepsis due to unspecified organism Sepsis acute organ dysfunction status: with acute organ dysfunction Severe sepsis acute organ dysfunction type: acute renal failure Acute renal failure type: with acute tubular necrosis Severe sepsis shock status: without septic shock Qualified Code(s): A41.9 - Sepsis, unspecified organism; R65.20 - Severe sepsis without septic shock; N17.0 - Acute kidney failure with tubular necrosis Is this a current diagnosis for this admission?: Yes Plan: 07/01/2019 Sepsis secondary to the soft tissue infection in the perianal/buttock areas. It is bilateral. The patient is being taken to the OR urgently. IV antibiotics with IV fluids and antipyretics. (2) Rectal fistula Is this a current diagnosis for this admission?: Yes Plan: 07/01/2019 The patient reports passing hard bowel movement and in fact these issues began after that. The patient is noted to have a likely fistula by CT scan. This certainly could have seeded the soft tissue infections. Surgical intervention with antibiotic therapy. (3) Left buttock abscess Is this a current diagnosis for this admission?: Yes Plan: 07/01/2019 Surgical intervention with IV antibiotics as well. (4) Abscess of right buttock Is this a current diagnosis for this admission?: Yes Plan: 07/01/2019 Surgical intervention with IV antibiotics as well (5) Hypothyroidism Qualifiers: Hypothyroidism type: unspecified Qualified Code(s): E03.9 - Hypothyroidism, unspecified Is this a current diagnosis for this admission?: Yes Plan: 07/01/2019 Waiting for medication confirmation but continue levothyroxine. (6) Hypertension Qualifiers: Hypertension type: essential hypertension Qualified Code(s): I10 - Essential (primary) hypertension Is this a current diagnosis for this admission?: Yes Plan: 07/01/2019 Multiple cardiac medications on the patient's computer file. Awaiting pharmacy to reconcile medications. The patient's blood pressure was marginal and she in fact may not require any antihypertensives for several days. (7) Depression Qualifiers: Depression Type: unspecified Qualified Code(s): F32.9 - Major depressive disorder, single episode, unspecified Is this a current diagnosis for this admission?: Yes Plan: 07/01/2019 Continue Celexa (8) Mitral valve prolapse Is this a current diagnosis for this admission?: Yes Plan: 07/01/2019 The patient knows that she has a "bulging" heart valve. She cannot recall much else for cardiac history. She does know that she saw a cardiac surgeon before moving here. She currently sees Dr. Moon but has not established with cardiology yet. We will need more information when the patient is out of surgery and recovering. - Time Time Spent with patient: 35 or more minutes Medications reviewed and adjusted accordingly: Yes - Inpatient Certification Based on my medical assessment, after consideration of the patient's comorbidities, presenting symptoms, or acuity I expect that the services needed warrant INPATIENT care.: Yes I certify that my determination is in accordance with my understanding of Medicare's requirements for reasonable and necessary INPATIENT services [42 CFR 412.3e].: Yes Medical Necessity: Need For IV Fluids, Need for Pain Control, Need for IV Antibiotics, Need for Surgery Post Hospital Care: D/C Photographic Process Worker Documentation
[2019-07-01] MEDS ORDERED: ACETAMINOPHEN 1,000 MG/100 ML RTUPB IV ONE (03:00)
[2019-07-01] MEDS ORDERED: DEXAMETHASONE SOD PHOSPHATE INJ 4 MG/1 ML VIAL ONE (03:05)
[2019-07-01] MEDS ORDERED: FENTANYL CITRATE INJ/PF 100 MCG/2 ML AMPUL ONE (03:05)
[2019-07-01] MEDS ORDERED: ONDANSETRON HCL INJ/PF 4 MG/2 ML SDV ONE (03:05)
[2019-07-01] MEDS ORDERED: HYDROMORPHONE HCL INJ/PF 2 MG/ML AMPULE ONE (03:05)
[2019-07-01] MEDS ORDERED: LIDOCAINE 2% INJ-PF (20 MG/ML) 10 ML AMPUL ONE (03:05)
[2019-07-01] MEDS ORDERED: PROPOFOL INJ 200 MG/20 ML VIAL IV ONE (03:05)
[2019-07-01] MEDS ORDERED: DIPHENHYDRAMINE HCL 50 MG/ML VIAL IV PRN (04:29)
[2019-07-01] MEDS ORDERED: FENTANYL CITRATE INJ/PF 100 MCG/2 ML AMPUL IV PRN ×3 (04:29)
[2019-07-01] MEDS ORDERED: MORPHINE SULFATE 10 MG/ML INJ IV PRN (04:29)
[2019-07-01] MEDS ORDERED: PROMETHAZINE HCL INJ 25 MG/1 ML VIAL IV PRN ×2 (04:29)
[2019-07-01] MEDS ORDERED: OXYCODONE-ACETAMINOPHEN 5-325 MG TABLET PO PRN ×2 (04:29)
[2019-07-01] MEDS ORDERED: VASOPRESSIN INJ 20 UNIT/1 ML VIAL ONE (04:33)
[2019-07-01] MEDS ORDERED: PIPERACILLIN/TAZOBACTAM 3.375 GM VIAL IV PRN (04:59)
--- NOTE | 2019-07-01 05:26 | Operative Report ---
Nonrecallable Operative Report DATE OF SURGERY: 07/01/19 PREOPERATIVE DIAGNOSIS: Necrotizing soft tissue infection buttock POSTOPERATIVE DIAGNOSIS: Necrotizing soft tissue infection buttock OPERATION: Debridement of buttock necrotizing soft tissue infection and exam under anesthesia SURGEON: TYRESE BECKER ANESTHESIA: GA TISSUE REMOVED OR ALTERED: Large area of skin on bilateral buttock subcutaneous tissue and fat COMPLICATIONS: None ESTIMATED BLOOD LOSS: 100 cc INTRAOPERATIVE FINDINGS: Extensive soft tissue necrosis and infection necrotizing fasciitis of the buttock gluteus muscles exposed rectum and exposed coccyx bone. PROCEDURE: Patient was brought the operating room awake alert placed on the operating table in a prone position after being induced under general anesthesia and the negative pressure room because of covered 19 precautions. The buttock and lower back was prepped and draped in usual sterile fashion. After appropriate timeout and site verification the procedure commenced. The patient had a very large area of necrosis and abscess on the left buttock that extended across the buttock cleft to the right side however did extend laterally on the upper portion of the buttock approximately 10 to 12 cm. We examined the rectum with a anoscope and noted that there was no evidence of any necrosis of the rectal mucosa on the inside of the rectum. We then began our dissection with the Bovie cautery and excised an area of skin about 15 cm wide from the midline to the upper lateral buttock we continued our dissection circumferentially to encompass the dishwater type of drainage and tissue. We extended our dissection down to the gluteus harley muscles and then was able to dissect the fibrofatty tissue off the gluteal muscles towards the midline towards the coccyx. As we reached the midline we noted that the rectum was in view however we did not guardado the rectum I did notice the coccyx muscle and excised tissue on top of the coccyx muscle to expose the rectum itself. Periodically I placed my finger in the rectum to make sure that we did not injure the rectum itself as we continued our dissection around the coccyx bilaterally down to the gluteus muscles. There was a significant amount of necrotic fat and dishwater drainage bleeding was controlled with Bovie cautery or suture ligature of 0 Vicryl once we remove dissection for approximately 15 to 20 cm on both sides of the buttock cleft down to the gluteal muscles we were able to completely encircled the necrotic tissue and excised it. At this point I irrigated the wound packed it with a Betadine soaked sponge and an placed a ABD on top of the Betadine soaked sponge. Patient was then placed back in a prone position and taken back to the negative pressure room for extubation. Estimated blood loss procedure approximately 100 cc sponge and needle counts were correct. She will require a colostomy in the next 24 to 48 hours for fecal diversion as this wound is exposing the entire rectum.
[2019-07-01] MEDS: PIPERACILLIN SODIUM/TAZOBACTAM 3.375 GM in NORMAL SALINE 100 ML IV SCH ×3 (06:51→17:55)
[2019-07-01] MEDS: LEVOTHYROXINE SODIUM 0.05 MG TABLET PO SCH (06:51)
[2019-07-01 07:28] LABS: ANION GAP 5 (5-19); BLOOD UREA NITROGEN 28 mg/dL (7-20); CARBON DIOXIDE 20 mmol/L (22-30); CHLORIDE 106 mmol/L (98-107); GLUCOSE 101 mg/dL (75-110); POTASSIUM 3.5 mmol/L (3.6-5.0)
--- NOTE | 2019-07-01 08:56 | PDOC PROGRESS REPORT ---
Subjective Progress Note for:: 07/01/19 Subjective:: 69 year old female with a complex medical history the details of which she is unable to provide at this time. Based on her medication list she likely has hypothyroidism, depression, ulcerative colitis, COPD and she reports a bulging heart valve with hypertension but she is on multiple medications suggesting possible heart failure. She is being taken to the operating room immediately. She has a perianal abscesses affecting both buttock. She qualifies for sepsis with low blood pressure, fever, altered mental status and acute kidney injury. 07/01/19 Patient is taken to the OR last night, intraoperative findings are extensive soft tissue necrosis and infection necrotizing fasciitis of the gluteus muscles of the buttock with exposed rectum and exposed coccyx bone. Large amount of skin on bilateral buttocks subcutaneous tissue and fat was removed during the surgery. As per Dr. Trinidad patient may need a colostomy in the next 24 to 48 hours for fecal diversion. Patient is complaining of pain patient is on IV Dilaudid because of the blood pressures are running low nurses are with heading pain medications. Once the blood pressure is improved we can to resume PRN IV pain medications. Presently she is on Ringer lactate at 150 cc/h. Patient blood pressure is 89/51. Plan is to increase the IV fluids to 250 cc/h. Condition is critical at this time. Reason For Visit: SEPSIS,PERIANAL ABSCESSES WITH POSSIBLE FISTULA Physical Exam Vital Signs: Temp Pulse Resp BP Pulse Ox 98.8 F 87 17 89/51 L 95 07/01/19 07:15 07/01/19 07:15 07/01/19 07:15 07/01/19 07:15 07/01/19 07:15 Intake & Output 06/30/19 07/01/19 07/02/19 06:59 06:59 06:59 Intake Total 5590 Output Total 300 Balance 5290 Weight 77.8 kg General appearance: PRESENT: cooperative, mild distress Head exam: PRESENT: atraumatic Eye exam: PRESENT: conjunctiva pale, PERRLA Ear exam: PRESENT: normal external ear exam Teeth exam: PRESENT: poor dentation Neck exam: ABSENT: carotid bruit, JVD, lymphadenopathy, thyromegaly Respiratory exam: PRESENT: clear to auscultation florentin. ABSENT: rales, rhonchi, wheezes Cardiovascular exam: PRESENT: RRR. ABSENT: diastolic murmur, rubs, systolic murmur GI/Abdominal exam: PRESENT: normal bowel sounds, soft. ABSENT: distended, guarding, mass, organolmegaly, rebound, tenderness Rectal exam: PRESENT: deferred Neurological exam: PRESENT: alert, awake, oriented to person, oriented to place, oriented to time, oriented to situation, CN II-XII grossly intact. ABSENT: motor sensory deficit Psychiatric exam: PRESENT: appropriate affect, normal mood. ABSENT: homicidal ideation, suicidal ideation Results Laboratory Results: 06/30/19 16:38 07/01/19 06:50 06/30/19 06/30/19 06/30/19 16:38 16:38 19:55 WBC 19.2 H RBC 3.23 L Hgb 11.4 L Hct 31.9 L MCV 99 H MCH 35.3 H MCHC 35.8 RDW 13.4 Plt Count 202 Seg Neutrophils % Not Reportable VBG pH VBG pCO2 VBG HCO3 VBG Base Excess Sodium 130.2 L Potassium 3.8 Chloride 97 L Carbon Dioxide 26 Anion Gap 7 BUN 40 H Creatinine 1.66 H Est GFR ( Amer) 37 L Glucose 114 H Lactic Acid 2.8 H Calcium 8.3 L Total Bilirubin 2.5 H AST 32 Alkaline Phosphatase 67 Total Protein 5.5 L Albumin 3.0 L Urine Color Urine Appearance Urine pH Ur Specific [place] Urine Protein Urine Glucose (UA) Urine Ketones Urine Blood Urine RBC (Auto) 06/30/19 07/01/19 07/01/19 22:14 01:50 06:50 WBC RBC Hgb Hct MCV MCH MCHC RDW Plt Count Seg Neutrophils % VBG pH 7.39 VBG pCO2 39.9 VBG HCO3 23.7 VBG Base Excess -1.1 Sodium 130.7 L Potassium 3.5 L Chloride 106 Carbon Dioxide 20 L Anion Gap 5 BUN 28 H Creatinine 0.92 Est GFR ( Amer) > 60 Glucose 101 Lactic Acid Calcium 7.0 L* Total Bilirubin AST Alkaline Phosphatase Total Protein Albumin Urine Color YELLOW Urine Appearance CLOUDY Urine pH 5.0 Ur Specific [place] 1.027 Urine Protein 100 H Urine Glucose (UA) NEGATIVE Urine Ketones TRACE H Urine Blood MODERATE H Urine RBC (Auto) 2 Impressions: Thoracic Spine X-Ray 06/30/19 16:30 IMPRESSION: No acute fracture. Ribs w/Chest X-Ray 06/30/19 16:31 IMPRESSION: NO PNEUMOTHORAX. NO DISPLACED RIB FRACTURES. Abdomen/Pelvis CT 06/30/19 21:01 IMPRESSION: 1. 2.5 cm lesion of the upper pole of the left kidney. Differential diagnosis includes neoplasm. Recommend dynamic contrast CT or MRI of the kidneys. 2. Soft tissue emphysema of subcutaneous bilateral buttocks and perineum, left more than right. Soft tissue opacity at the pelvic floor may indicate phlegmon or rectal prolapse. No significant drainable fluid collection or abscess. Moderate inguinal lymphadenopathy. Differential etiologies include iatrogenic and advanced /necrotizing infectious. 3. Colonic stool retention. Orally administered contrast is seen to the level of the mid small bowel. 2.6 cm diameter small bowel with air-fluid levels indicative of ileus or low-grade obstruction. Assessment and Plan - Diagnosis (1) Sepsis Qualifiers: Sepsis type: sepsis due to unspecified organism Sepsis acute organ dysfunction status: with acute organ dysfunction Severe sepsis acute organ dysfunction type: acute renal failure Acute renal failure type: with acute tubular necrosis Severe sepsis shock status: without septic shock Qualified Code(s): A41.9 - Sepsis, unspecified organism; R65.20 - Severe sepsis without septic shock; N17.0 - Acute kidney failure with tubular necrosis Is this a current diagnosis for this admission?: Yes Plan: 07/01/2019 Sepsis secondary to the soft tissue infection in the perianal/buttock areas. It is bilateral. The patient is being taken to the OR urgently. IV antibiotics with IV fluids and antipyretics. 07/01/2019-patient went to the OR for debridement of the necrotic tissue, patient is presently on IV Zosyn. Dr. Trinidad thinks patient may need a colostomy in the next 24 to 48 hours. wound Cultures and blood cultures are pending. (2) Rectal fistula Is this a current diagnosis for this admission?: No Plan: 07/01/2019 The patient reports passing hard bowel movement and in fact these issues began after that. The patient is noted to have a likely fistula by CT scan. This c ertainly could have seeded the soft tissue infections. Surgical intervention with antibiotic therapy. (3) Left buttock abscess Is this a current diagnosis for this admission?: Yes Plan: 07/01/2019 Surgical intervention with IV antibiotics as well. (4) Abscess of right buttock Is this a current diagnosis for this admission?: Yes Plan: 07/01/2019 Surgical intervention with IV antibiotics as well (5) Hypertension Qualifiers: Hypertension type: essential hypertension Qualified Code(s): I10 - Essential (primary) hypertension Is this a current diagnosis for this admission?: No Plan: 07/01/2019 Multiple cardiac medications on the patient's computer file. Awaiting pharmacy to reconcile medications. The patient's blood pressure was marginal and she in fact may not require any antihypertensives for several days. 07/01/2019-patient has history of chronic essential hypertension now patient is persistently hypotensive latest blood pressure is 89/61. Ringer lactate solution rate is increased to 250 cc/h. (6) Hypocalcemia Is this a current diagnosis for this admission?: Yes Plan: 07/01/2019-serum calcium level today 7.0 and albumin is 3.0 yesterday. Corrected serum calcium may be around 7.8. Plan is to repeat the labs tomorrow including serum albumin.
[2019-07-01 09:20] LABS: HEMATOCRIT 27.9 % (36.0-47.0); HEMOGLOBIN 9.9 g/dL (12.0-15.5); MEAN CORPUSCULAR HEMOGLOBIN 35.3 pg (27.0-33.4); MEAN CORPUSCULAR HGB CONC 35.6 g/dL (32.0-36.0); MEAN CORPUSCULAR VOLUME 99 fl (80-97); PLATELET COUNT 160 10^3/uL (150-450); RED BLOOD COUNT 2.81 10^6/uL (3.72-5.28); RED CELL DISTRIBUTION WIDTH 13.5 % (11.5-14.0); WHITE BLOOD COUNT 14.9 10^3/uL (4.0-10.5)
[2019-07-01 10:23] LABS: ABSOLUTE LYMPHOCYTES# (MANUAL) 1.2 10^3/uL (0.5-4.7); ABSOLUTE MONOCYTES # (MANUAL) 0.6 10^3/uL (0.1-1.4); BAND NEUTROPHILS % (MANUAL) 2 % (3-5); BASOPHILS % (MANUAL) 0 % (0-2); EOSINOPHILS % (MANUAL) 0 % (0-6); LYMPHOCYTES % (MANUAL) 8 % (13-45); MONOCYTES % (MANUAL) 4 % (3-13); SEGMENTED NEUTROPHILS % (MAN) 86 % (42-78); TOTAL CELLS COUNTED 100
[2019-07-01 10:25] LABS: BURR CELLS SLIGHT; OVALOCYTES SLIGHT; PLATELET COMMENT ADEQUATE; TOXIC VACUOLATION PRESENT
[2019-07-01] MEDS: CARVEDILOL 6.25 MG TABLET PO SCH ×2 (10:32→21:14)
[2019-07-01] MEDS: CITALOPRAM HYDROBROMIDE 20 MG TABLET PO SCH (10:32)
[2019-07-01] MEDS: PANTOPRAZOLE SODIUM 40 MG VIAL IV SCH ×2 (10:34→21:20)
[2019-07-01] MEDS: RINGERS SOLUTION,LACTATED 1,000 ML IV PRN ×3 (10:43→21:22)
[2019-07-01] MEDS ORDERED: NEOSTIGMINE METHYLSULFATE 10 MG/10 ML VIAL ONE (10:44)
[2019-07-01] MEDS ORDERED: PHENYLEPHRINE HCL INJ/PF 10 MG/1 ML SDV ONE (10:44)
[2019-07-01] MEDS ORDERED: GLYCOPYRROLATE 1 MG/5 ML VIAL ONE (10:44)
[2019-07-01] MEDS: HEPARIN SOD (PORCINE) 5,000 UNIT/ML 1 ML VIAL SUBCUT SCH ×2 (13:23→21:20)
[2019-07-01] MEDS: ACETAMINOPHEN 325 MG TABLET PO PRN (13:23)
[2019-07-01] MEDS: KETOROLAC TROMETHAMINE INJ/PF 30 MG/1 ML SDV IV SCH (17:55)
[2019-07-01] MEDS: HYDROMORPHONE HCL INJ/PF 2 MG/ML AMPULE IV PRN (21:20)
[2019-07-02] MEDS: KETOROLAC TROMETHAMINE INJ/PF 30 MG/1 ML SDV IV SCH ×4 (00:53→17:42)
[2019-07-02] MEDS: PIPERACILLIN SODIUM/TAZOBACTAM 3.375 GM in NORMAL SALINE 100 ML IV SCH ×4 (00:54→17:43)
[2019-07-02] MEDS: RINGERS SOLUTION,LACTATED 1,000 ML IV PRN ×3 (02:35→17:42)
[2019-07-02 05:11] LABS: ABSOLUTE LYMPHOCYTES (AUTO) 0.7 10^3/uL (0.5-4.7); ABSOLUTE MONOCYTES (AUTO) 0.7 10^3/uL (0.1-1.4); ABSOLUTE NEUT (AUTO) 11.8 10^3/uL (1.7-8.2); BASOPHILS % (AUTO) 0.2 % (0-2); HEMATOCRIT 25.5 % (36.0-47.0); HEMOGLOBIN 9.1 g/dL (12.0-15.5); LYMPHOCYTES % (AUTO) 5.5 % (13-45); MEAN CORPUSCULAR HEMOGLOBIN 35.1 pg (27.0-33.4); MEAN CORPUSCULAR HGB CONC 35.8 g/dL (32.0-36.0); MEAN CORPUSCULAR VOLUME 98 fl (80-97); PLATELET COUNT 170 10^3/uL (150-450); SEGMENTED NEUTROPHILS % (AUTO) 89.3 % (42-78); TOTAL CELLS COUNTED % (AUTO) 100 %; WHITE BLOOD COUNT 13.2 10^3/uL (4.0-10.5)
[2019-07-02] MEDS: HEPARIN SOD (PORCINE) 5,000 UNIT/ML 1 ML VIAL SUBCUT SCH ×3 (05:29→22:07)
[2019-07-02 05:34] LABS: ALKALINE PHOSPHATASE 70 U/L (38-126); ASPARTATE AMINO TRANSFERASE 29 U/L (14-36); BILIRUBIN,DIRECT 0.2 mg/dL (0.0-0.4); BILIRUBIN,TOTAL 0.9 mg/dL (0.2-1.3); BLOOD UREA NITROGEN 25 mg/dL (7-20); CALCIUM 7.1 mg/dL (8.4-10.2); GLUCOSE 128 mg/dL (75-110); POTASSIUM 3.8 mmol/L (3.6-5.0); TOTAL PROTEIN 4.1 g/dL (6.3-8.2)
[2019-07-02 05:39] LABS: CARBON DIOXIDE 23 mmol/L (22-30); CHLORIDE 111 mmol/L (98-107)
[2019-07-02] MEDS: LEVOTHYROXINE SODIUM 0.05 MG TABLET PO SCH (05:39)
[2019-07-02 05:44] LABS: ANION GAP 3 (5-19)
[2019-07-02] MEDS ORDERED: DEXTROSE 40% GEL 15 GM TUBE PO PRN ×2 (07:47)
[2019-07-02] MEDS ORDERED: DEXTROSE 50%-WATER 25 GM/50 ML DISP.SYRIN IV PRN ×2 (07:47)
[2019-07-02] MEDS ORDERED: GLUCAGON,HUMAN RECOMB 1 MG INJ SUBCUT PRN (07:47)
[2019-07-02] MEDS: CITALOPRAM HYDROBROMIDE 20 MG TABLET PO SCH (09:12)
[2019-07-02] MEDS: CARVEDILOL 6.25 MG TABLET PO SCH ×2 (09:12→22:00)
[2019-07-02] MEDS: PANTOPRAZOLE SODIUM 40 MG VIAL IV SCH ×2 (09:18→22:07)
[2019-07-02] MEDS: HYDROMORPHONE HCL INJ/PF 2 MG/ML AMPULE IV PRN ×3 (09:19→22:07)
[2019-07-02] MEDS ORDERED: DEXAMETHASONE SOD PHOSPHATE INJ 4 MG/1 ML VIAL ONE (09:57)
[2019-07-02] MEDS ORDERED: SUCCINYLCHOLINE CHLORIDE INJ 200 MG/10 ML VIAL ONE (09:57)
[2019-07-02] MEDS ORDERED: ONDANSETRON HCL INJ/PF 4 MG/2 ML SDV ONE (09:57)
[2019-07-02] MEDS ORDERED: ROCURONIUM BROMIDE INJ 50 MG/5 ML VIAL IV ONE (09:57)
[2019-07-02] MEDS ORDERED: FENTANYL CITRATE INJ/PF 250 MCG/5 ML AMPULE ONE (12:00)
[2019-07-02] MEDS ORDERED: MIDAZOLAM 2 MG/2 ML INJ ONE (12:01)
[2019-07-02] MEDS ORDERED: HYDROMORPHONE HCL INJ/PF 2 MG/ML AMPULE ONE (12:01)
[2019-07-02] MEDS ORDERED: PROPOFOL INJ 200 MG/20 ML VIAL IV ONE (12:01)
[2019-07-02] MEDS ORDERED: EPHEDRINE SULFATE INJ 50 MG/1 ML AMPULE ONE (13:37)
[2019-07-02] MEDS ORDERED: FENTANYL CITRATE INJ/PF 100 MCG/2 ML AMPUL IV PRN ×3 (14:06)
[2019-07-02] MEDS ORDERED: DIPHENHYDRAMINE HCL 50 MG/ML VIAL IV PRN (14:06)
[2019-07-02] MEDS ORDERED: PROMETHAZINE HCL INJ 25 MG/1 ML VIAL IV PRN (14:06)
--- NOTE | 2019-07-02 14:52 | Operative Report ---
Nonrecallable Operative Report DATE OF SURGERY: 07/02/19 PREOPERATIVE DIAGNOSIS: perineal sepsis POSTOPERATIVE DIAGNOSIS: Perineal sepsis OPERATION: Laparoscopic colostomy SURGEON: TYRESE BECKER ANESTHESIA: GA TISSUE REMOVED OR ALTERED: None COMPLICATIONS: None ESTIMATED BLOOD LOSS: 5 cc INTRAOPERATIVE FINDINGS: See dictation PROCEDURE: Procedure note; patient was brought to the operating awake alert stable condition placed in the operative table supine position. She was placed under general anesthesia in the preop area and negative pressure and mask per COVID 19 protocol. After adequate prep and drape the varies needle was placed at Chávez's point in the left upper quadrant the abdomen was insufflated 6 L of CO2 gas. A supraumbilical 10 mm incision was made with a 15 blade and a 10 mm port placed in the abdominal cavity intra-abdominal visualization revealed no evidence of Veress needle trocar injury. 2 5 mm lateral ports on the left side on the right side were placed under direct vision. The sigmoid colon was then identified and was ran to the rectosigmoid junction. Was then run back to the mid sigmoid colon which easily came up to the anterior abdominal wall and the left side where it was previously marked for her colostomy. At this point we grasped the portion of the sigmoid colon and turned attention to the anterior abdominal wall a one half dollar size section of skin was removed from the left anterior abdominal wall with Bovie cautery I dissection was carried down through the fatty tissue with Bovie cautery a section of fat was removed and the rectus muscle was identified a cruciate incision was made in the anterior rectus sheath and then posterior rectus sheath. The defect was then dilated to 2 fingers. Using [place] clamp we pulled that section of sigmoid colon through. We then divided the mesentery with Bovie cautery and then divided the sigmoid colon with one firing of the SCOTT stapler with a set with a blue load. The distal end was marked with a 2-0 Prolene suture to back into the abdominal cavity Pneumoperitoneum was reduced. The colostomy was then matured to the anterior abdominal wall with interrupted placed 3-0 Vicryl sutures. The 10 mm port site in the intra-abdominal wall was closed with 0 Vicryl in the fascia and then all skin stitches were closed with intracuticular 4-0 Biosyn sterile colostomy appliance was placed. Estimated blood loss was less than 10 cc sponge needle counts were correct x2 the patient was transferred back to PACU for extubation in the negative pressure room. Sponge needle counts were correct x2
--- NOTE | 2019-07-02 17:17 | PDOC PROGRESS REPORT ---
Subjective Progress Note for:: 07/02/19 Reason For Visit: SEPSIS,PERIANAL ABSCESSES WITH POSSIBLE FISTULA 07/02/2019 Patient was admitted yesterday with an apparent rectal abscess, sepsis Physical Exam Vital Signs: Temp Pulse Resp BP Pulse Ox 98.5 F 59 L 16 117/64 98 07/02/19 11:48 07/02/19 11:48 07/02/19 11:48 07/02/19 11:48 07/02/19 11:48 Intake & Output 07/01/19 07/02/19 07/03/19 06:59 06:59 06:59 Intake Total 5590 6397 100 Output Total 300 2955 100 Balance 5290 3442 0 Weight 77.8 kg 82.9 kg General appearance: PRESENT: no acute distress, other - Early this morning sitting up in bed talking to me in no distress Respiratory exam: PRESENT: clear to auscultation florentin. ABSENT: rales, rhonchi, wheezes Cardiovascular exam: PRESENT: RRR. ABSENT: diastolic murmur, rubs, systolic murmur Rectal exam: PRESENT: deferred - General surgery Neurological exam: PRESENT: alert, awake, oriented to person, oriented to place, oriented to time, oriented to situation, CN II-XII grossly intact. ABSENT: motor sensory deficit Psychiatric exam: PRESENT: appropriate affect, normal mood. ABSENT: homicidal ideation, suicidal ideation Results Laboratory Results: 07/02/19 04:47 07/02/19 04:47 07/02/19 07/02/19 04:47 04:47 WBC 13.2 H RBC 2.60 L Hgb 9.1 L Hct 25.5 L MCV 98 H MCH 35.1 H MCHC 35.8 RDW 13.0 Plt Count 170 Seg Neutrophils % 89.3 H Sodium 136.7 L Potassium 3.8 Chloride 111 H Carbon Dioxide 23 Anion Gap 3 L BUN 25 H Creatinine 0.99 Est GFR ( Amer) > 60 Glucose 128 H Calcium 7.1 L Magnesium 2.0 Total Bilirubin 0.9 AST 29 Alkaline Phosphatase 70 Total Protein 4.1 L Albumin 2.0 L Impressions: Thoracic Spine X-Ray 06/30/19 16:30 IMPRESSION: No acute fracture. Ribs w/Chest X-Ray 06/30/19 16:31 IMPRESSION: NO PNEUMOTHORAX. NO DISPLACED RIB FRACTURES. Abdomen/Pelvis CT 06/30/19 21:01 IMPRESSION: 1. 2.5 cm lesion of the upper pole of the left kidney. Differential diagnosis includes neoplasm. Recommend dynamic contrast CT or MRI of the kidneys. 2. Soft tissue emphysema of subcutaneous bilateral buttocks and perineum, left more than right. Soft tissue opacity at the pelvic floor may indicate phlegmon or rectal prolapse. No significant drainable fluid collection or abscess. Moderate inguinal lymphadenopathy. Differential etiologies include iatrogenic and advanced /necrotizing infectious. 3. Colonic stool retention. Orally administered contrast is seen to the level of the mid small bowel. 2.6 cm diameter small bowel with air-fluid levels indicative of ileus or low-grade obstruction. Assessment and Plan - Diagnosis (1) Abscess of right buttock Is this a current diagnosis for this admission?: Yes (2) Left buttock abscess Is this a current diagnosis for this admission?: Yes (3) Mitral valve prolapse Is this a current diagnosis for this admission?: Yes (4) Rectal fistula Is this a current diagnosis for this admission?: Yes (5) Sepsis Qualifiers: Sepsis type: sepsis due to unspecified organism Sepsis acute organ dysfunction status: with acute organ dysfunction Severe sepsis acute organ dysfunction type: acute renal failure Acute renal failure type: with acute tubular necrosis Severe sepsis shock status: without septic shock Qualified Code(s): A41.9 - Sepsis, unspecified organism; R65.20 - Severe sepsis without septic shock; N17.0 - Acute kidney failure with tubular necrosis Is this a current diagnosis for this admission?: Yes (6) Soft tissue infection Is this a current diagnosis for this admission?: Yes - Plan Summary Summary: 07/02/2019 This morning her vital signs are stable temperature 98.5 pulse 55 blood pressure 117/64 O2 sat was 98% on 1-1/2 L Patient's pulse and blood pressure both have been running low Last night patient went to the OR where debridement of the buttock necrotizing soft tissue infection was performed. White count on admission was 19.2 it is gone down to 13.2 IV fluids have been running at 250/h due to hypotension Patient is currently on IV Zosyn Patient went back to the OR today for a laparoscopic colostomy - Time Time Spent with patient: 25-34 minutes
[2019-07-03] MEDS: KETOROLAC TROMETHAMINE INJ/PF 30 MG/1 ML SDV IV SCH ×5 (00:52→23:09)
[2019-07-03] MEDS: PIPERACILLIN SODIUM/TAZOBACTAM 3.375 GM in NORMAL SALINE 100 ML IV SCH ×5 (00:53→23:10)
[2019-07-03] MEDS: RINGERS SOLUTION,LACTATED 1,000 ML IV PRN ×2 (03:18→12:21)
[2019-07-03] MEDS: LEVOTHYROXINE SODIUM 0.05 MG TABLET PO SCH (05:33)
[2019-07-03] MEDS: HEPARIN SOD (PORCINE) 5,000 UNIT/ML 1 ML VIAL SUBCUT SCH ×3 (05:35→21:22)
[2019-07-03 06:19] LABS: ABSOLUTE LYMPHOCYTES (AUTO) 1.2 10^3/uL (0.5-4.7); ABSOLUTE MONOCYTES (AUTO) 0.7 10^3/uL (0.1-1.4); MEAN CORPUSCULAR HEMOGLOBIN 35.3 pg (27.0-33.4); RED CELL DISTRIBUTION WIDTH 13.5 % (11.5-14.0); TOTAL CELLS COUNTED % (AUTO) 100 %
[2019-07-03 06:28] LABS: ABSOLUTE NEUT (AUTO) 7.7 10^3/uL (1.7-8.2); BASOPHILS % (AUTO) 0.1 % (0-2); HEMATOCRIT 27.7 % (36.0-47.0); LYMPHOCYTES % (AUTO) 12.6 % (13-45); MEAN CORPUSCULAR HGB CONC 36.2 g/dL (32.0-36.0); MEAN CORPUSCULAR VOLUME 98 fl (80-97); MONOCYTES % (AUTO) 7.6 % (3-13); PLATELET COUNT 231 10^3/uL (150-450); RED BLOOD COUNT 2.84 10^6/uL (3.72-5.28); SEGMENTED NEUTROPHILS % (AUTO) 79.7 % (42-78); WHITE BLOOD COUNT 9.7 10^3/uL (4.0-10.5)
[2019-07-03 06:38] LABS: BLOOD UREA NITROGEN 31 mg/dL (7-20); CALCIUM 7.2 mg/dL (8.4-10.2); CARBON DIOXIDE 23 mmol/L (22-30); CHLORIDE 111 mmol/L (98-107); GLUCOSE 111 mg/dL (75-110); POTASSIUM 4.1 mmol/L (3.6-5.0)
[2019-07-03 07:04] LABS: ANION GAP 3 (5-19)
[2019-07-03] MEDS: HYDROMORPHONE HCL INJ/PF 2 MG/ML AMPULE IV PRN ×2 (07:30→13:27)
--- NOTE | 2019-07-03 09:22 | PDOC PROGRESS REPORT ---
Subjective Progress Note for:: 07/03/19 Subjective:: feels ok pod 1 s/p lap colostomy Reason For Visit: SEPSIS,PERIANAL ABSCESSES WITH POSSIBLE FISTULA Physical Exam Vital Signs: Temp Pulse Resp BP Pulse Ox 97.7 F 65 18 111/54 L 99 07/03/19 07:57 07/03/19 07:57 07/03/19 07:57 07/03/19 07:57 07/03/19 07:57 Intake & Output 07/02/19 07/03/19 07/04/19 06:59 06:59 06:59 Intake Total 6364 3548 Output Total 2955 700 Balance 3442 2848 Weight 82.9 kg 82.9 kg General appearance: PRESENT: no acute distress Head exam: PRESENT: normocephalic Eye exam: PRESENT: EOMI Mouth exam: PRESENT: dry mucosa Teeth exam: PRESENT: poor dentation Neck exam: PRESENT: full ROM Respiratory exam: PRESENT: clear to auscultation florentin Cardiovascular exam: PRESENT: RRR Pulses: PRESENT: normal carotid pulses, normal radial pulses, normal femoral pulses Vascular exam: PRESENT: normal capillary refill Breast: PRESENT: Normal GI/Abdominal exam: PRESENT: soft, other - stoma pink, not productive Rectal exam: PRESENT: other - perineal/sacral wound with min necrosis, no further pus dressing changed Gentrourinary exam: PRESENT: indwelling catheter Extremities exam: PRESENT: full ROM Musculoskeletal exam: PRESENT: full ROM Neurological exam: PRESENT: alert, awake, oriented to place Psychiatric exam: PRESENT: appropriate affect Skin exam: PRESENT: dry Results Laboratory Results: 07/03/19 05:55 07/03/19 05:55 07/03/19 07/03/19 05:55 05:55 WBC 9.7 RBC 2.84 L Hgb 10.0 L Hct 27.7 L MCV 98 H MCH 35.3 H MCHC 36.2 H RDW 13.5 Plt Count 231 Seg Neutrophils % 79.7 H Sodium 137.0 Potassium 4.1 Chloride 111 H Carbon Dioxide 23 Anion Gap 3 L BUN 31 H Creatinine 0.92 Est GFR ( Amer) > 60 Glucose 111 H Calcium 7.2 L Magnesium 2.1 Impressions: Thoracic Spine X-Ray 06/30/19 16:30 IMPRESSION: No acute fracture. Ribs w/Chest X-Ray 06/30/19 16:31 IMPRESSION: NO PNEUMOTHORAX. NO DISPLACED RIB FRACTURES. Abdomen/Pelvis CT 06/30/19 21:01 IMPRESSION: 1. 2.5 cm lesion of the upper pole of the left kidney. Differential diagnosis includes neoplasm. Recommend dynamic contrast CT or MRI of the kidneys. 2. Soft tissue emphysema of subcutaneous bilateral buttocks and perineum, left more than right. Soft tissue opacity at the pelvic floor may indicate phlegmon or rectal prolapse. No significant drainable fluid collection or abscess. Moderate inguinal lymphadenopathy. Differential etiologies include iatrogenic and advanced /necrotizing infectious. 3. Colonic stool retention. Orally administered contrast is seen to the level of the mid small bowel. 2.6 cm diameter small bowel with air-fluid levels indicative of ileus or low-grade obstruction. Assessment & Plan - Diagnosis (1) Left buttock abscess Is this a current diagnosis for this admission?: Yes (2) Abscess of right buttock Is this a current diagnosis for this admission?: Yes (3) Rectal fistula Is this a current diagnosis for this admission?: Yes - Plan Summary Plan Summary: s/p sacral abscess, necrotizing fascitis s/p extensive sacral and perirectal debridemtn now iwth exposed rectum/floating s/p lap colostomy plan cont dressing change wound vac out of bed cont clears await stoma function.
[2019-07-03] MEDS: CARVEDILOL 6.25 MG TABLET PO SCH ×2 (10:56→21:19)
[2019-07-03] MEDS: CITALOPRAM HYDROBROMIDE 20 MG TABLET PO SCH (11:02)
[2019-07-03] MEDS: PANTOPRAZOLE SODIUM 40 MG VIAL IV SCH ×2 (11:02→21:22)
[2019-07-03] MEDS ORDERED: RINGERS SOLUTION,LACTATED 1,000 ML IV PRN (12:21)
--- NOTE | 2019-07-03 12:21 | PDOC PROGRESS REPORT ---
Subjective Progress Note for:: 07/03/19 Reason For Visit: SEPSIS,PERIANAL ABSCESSES WITH POSSIBLE FISTULA 07/03/2019 Rectal abscess, sepsis, necrotizing fasciitis Physical Exam Vital Signs: Temp Pulse Resp BP Pulse Ox 97.7 F 65 18 111/54 L 99 07/03/19 07:57 07/03/19 07:57 07/03/19 07:57 07/03/19 07:57 07/03/19 07:57 Intake & Output 07/02/19 07/03/19 07/04/19 06:59 06:59 06:59 Intake Total 6331 3548 Output Total 2955 700 Balance 3442 2848 Weight 82.9 kg 82.9 kg General appearance: PRESENT: no acute distress Respiratory exam: PRESENT: clear to auscultation florentin. ABSENT: rales, rhonchi, wheezes Cardiovascular exam: PRESENT: RRR. ABSENT: diastolic murmur, rubs, systolic murmur Rectal exam: PRESENT: other - Patient's anus is been debrided and surrounding necrotic tissue has been removed. No odor, no redness Neurological exam: PRESENT: alert, awake, oriented to person, oriented to place, oriented to time, oriented to situation, CN II-XII grossly intact. ABSENT: motor sensory deficit Psychiatric exam: PRESENT: appropriate affect, normal mood, other - Patient is in good spirits surprisingly considering her situation. ABSENT: homicidal ideation, suicidal ideation Results Laboratory Results: 07/03/19 05:55 07/03/19 05:55 07/03/19 07/03/19 05:55 05:55 WBC 9.7 RBC 2.84 L Hgb 10.0 L Hct 27.7 L MCV 98 H MCH 35.3 H MCHC 36.2 H RDW 13.5 Plt Count 231 Seg Neutrophils % 79.7 H Sodium 137.0 Potassium 4.1 Chloride 111 H Carbon Dioxide 23 Anion Gap 3 L BUN 31 H Creatinine 0.92 Est GFR ( Amer) > 60 Glucose 111 H Calcium 7.2 L Magnesium 2.1 07/01/19 04:50 Perirectal Gram Stain - Final 06/30/19 20:55 Buttocks - Abscess Gram Stain - Final Impressions: Thoracic Spine X-Ray 06/30/19 16:30 IMPRESSION: No acute fracture. Ribs w/Chest X-Ray 06/30/19 16:31 IMPRESSION: NO PNEUMOTHORAX. NO DISPLACED RIB FRACTURES. Abdomen/Pelvis CT 06/30/19 21:01 IMPRESSION: 1. 2.5 cm lesion of the upper pole of the left kidney. Differential diagnosis includes neoplasm. Recommend dynamic contrast CT or MRI of the kidneys. 2. Soft tissue emphysema of subcutaneous bilateral buttocks and perineum, left more than right. Soft tissue opacity at the pelvic floor may indicate phlegmon or rectal prolapse. No significant drainable fluid collection or abscess. Moderate inguinal lymphadenopathy. Differential etiologies include iatrogenic and advanced /necrotizing infectious. 3. Colonic stool retention. Orally administered contrast is seen to the level of the mid small bowel. 2.6 cm diameter small bowel with air-fluid levels indicative of ileus or low-grade obstruction. Assessment and Plan - Diagnosis (1) Abscess of right buttock Is this a current diagnosis for this admission?: Yes (2) Left buttock abscess Is this a current diagnosis for this admission?: Yes (3) Mitral valve prolapse Is this a current diagnosis for this admission?: Yes (4) Rectal fistula Is this a current diagnosis for this admission?: Yes (5) Sepsis Qualifiers: Sepsis type: sepsis due to unspecified organism Sepsis acute organ dysfunction status: with acute organ dysfunction Severe sepsis acute organ dysfunction type: acute renal failure Acute renal failure type: with acute tubular necrosis Severe sepsis shock status: without septic shock Qualified Code(s): A41.9 - Sepsis, unspecified organism; R65.20 - Severe sepsis without septic shock; N17.0 - Acute kidney failure with tubular necrosis Is this a current diagnosis for this admission?: Yes (6) Soft tissue infection Is this a current diagnosis for this admission?: Yes - Plan Summary Summary: 07/02/2019 This morning her vital signs are stable temperature 98.5 pulse 55 blood pressure 117/64 O2 sat was 98% on 1-2 L Patient's pulse and blood pressure both have been running low Last night patient went to the OR where debridement of the buttock necrotizing soft tissue infection was performed. White count on admission was 19.2 it is gone down to 13.2 IV fluids have been running at 250/h due to hypotension Patient is currently on IV Zosyn Patient went back to the OR today for a laparoscopic colostomy July 03, 2019 Patient's labs continue to improve on admission her white blood cell count was 19.2, yesterday it was 13.2 and today it is 9.7 hemoglobin is stable at 10 Chemistry shows a potassium has come up to 4.1 Calcium and albumin remain low, will be supplemented Wound culture is positive x2, appears to be sensitive to meropenem Patient remains afebrile with good blood pressure and pulse. Will decrease IV fluids to KVO Surgery sees patient daily for her wound care and colostomy site. With the help of 2 nurses I have inspected patient's wound, it appears to be dry and clean, ever rather large in diameter and depth - Time Time Spent with patient: 25-34 minutes
[2019-07-04] MEDS: HYDROMORPHONE HCL INJ/PF 2 MG/ML AMPULE IV PRN ×3 (03:52→19:26)
[2019-07-04 04:38] LABS: ABSOLUTE BASOPHILS # (AUTO) 0.1 10^3/uL (0.0-0.2); ABSOLUTE EOSINOPHILS # (AUTO) 0.1 10^3/uL (0.0-0.6); ABSOLUTE LYMPHOCYTES (AUTO) 2.5 10^3/uL (0.5-4.7); ABSOLUTE MONOCYTES (AUTO) 1.1 10^3/uL (0.1-1.4); ABSOLUTE NEUT (AUTO) 8.3 10^3/uL (1.7-8.2); BASOPHILS % (AUTO) 0.4 % (0-2); EOSINOPHILS % (AUTO) 1.2 % (0-6); HEMOGLOBIN 10.5 g/dL (12.0-15.5); LYMPHOCYTES % (AUTO) 20.4 % (13-45); MEAN CORPUSCULAR HEMOGLOBIN 35.2 pg (27.0-33.4); MEAN CORPUSCULAR HGB CONC 36.3 g/dL (32.0-36.0); MEAN CORPUSCULAR VOLUME 97 fl (80-97); MONOCYTES % (AUTO) 9.1 % (3-13); PLATELET COUNT 285 10^3/uL (150-450); RED BLOOD COUNT 2.98 10^6/uL (3.72-5.28); RED CELL DISTRIBUTION WIDTH 13.7 % (11.5-14.0); SEGMENTED NEUTROPHILS % (AUTO) 68.9 % (42-78); TOTAL CELLS COUNTED % (AUTO) 100 %; WHITE BLOOD COUNT 12.1 10^3/uL (4.0-10.5)
[2019-07-04] MEDS: KETOROLAC TROMETHAMINE INJ/PF 30 MG/1 ML SDV IV SCH ×4 (05:10→23:13)
[2019-07-04] MEDS: LEVOTHYROXINE SODIUM 0.05 MG TABLET PO SCH (05:10)
[2019-07-04] MEDS: PIPERACILLIN SODIUM/TAZOBACTAM 3.375 GM in NORMAL SALINE 100 ML IV SCH ×4 (05:11→23:13)
[2019-07-04] MEDS: HEPARIN SOD (PORCINE) 5,000 UNIT/ML 1 ML VIAL SUBCUT SCH ×3 (05:11→21:25)
--- NOTE | 2019-07-04 08:53 | PDOC PROGRESS REPORT ---
Subjective Progress Note for:: 07/04/19 Subjective:: feels ok, tired of clear liquids no abd pain Reason For Visit: SEPSIS,PERIANAL ABSCESSES WITH POSSIBLE FISTULA Physical Exam Vital Signs: Temp Pulse Resp BP Pulse Ox 98.6 F 63 19 117/51 L 97 07/04/19 03:04 07/04/19 07:00 07/04/19 03:04 07/04/19 03:04 07/04/19 04:58 Intake & Output 07/03/19 07/04/19 07/05/19 06:59 06:59 06:59 Intake Total 3548 3086 Output Total 700 650 Balance 2848 2436 Weight 82.9 kg 87.6 kg General appearance: PRESENT: no acute distress Head exam: PRESENT: normocephalic Eye exam: PRESENT: EOMI Ear exam: PRESENT: normal external ear exam Mouth exam: PRESENT: moist Neck exam: PRESENT: full ROM Respiratory exam: PRESENT: clear to auscultation florentin Cardiovascular exam: PRESENT: RRR Pulses: PRESENT: normal radial pulses, normal femoral pulses Vascular exam: PRESENT: normal capillary refill Breast: PRESENT: Normal GI/Abdominal exam: PRESENT: soft, other - stoma functional with gas and some stool Rectal exam: PRESENT: deferred, other - wound vac placed yesterday Gentrourinary exam: PRESENT: indwelling catheter Extremities exam: PRESENT: full ROM Musculoskeletal exam: PRESENT: full ROM Neurological exam: PRESENT: alert, awake, oriented to person, oriented to place Psychiatric exam: PRESENT: appropriate affect Skin exam: PRESENT: dry Results Laboratory Results: 07/04/19 04:20 07/03/19 05:55 07/04/19 07/04/19 04:20 04:20 WBC 12.1 H RBC 2.98 L Hgb 10.5 L Hct 29.0 L MCV 97 MCH 35.2 H MCHC 36.3 H RDW 13.7 Plt Count 285 Seg Neutrophils % 68.9 Magnesium 2.1 07/01/19 04:50 Perirectal Gram Stain - Final 07/01/19 04:50 Perirectal Wound Culture - Final Escherichia Coli Strep Anginosus Group Prevotella Species Peptostreptococcus Species 06/30/19 20:55 Buttocks - Abscess Gram Stain - Final 06/30/19 20:55 Buttocks - Abscess Wound Culture - Final Escherichia Coli Strep Anginosus Group Prevotella Species Peptostreptococcus Species Impressions: Thoracic Spine X-Ray 06/30/19 16:30 IMPRESSION: No acute fracture. Ribs w/Chest X-Ray 06/30/19 16:31 IMPRESSION: NO PNEUMOTHORAX. NO DISPLACED RIB FRACTURES. Abdomen/Pelvis CT 06/30/19 21:01 IMPRESSION: 1. 2.5 cm lesion of the upper pole of the left kidney. Differential diagnosis includes neoplasm. Recommend dynamic contrast CT or MRI of the kidneys. 2. Soft tissue emphysema of subcutaneous bilateral buttocks and perineum, left more than right. Soft tissue opacity at the pelvic floor may indicate phlegmon or rectal prolapse. No significant drainable fluid collection or abscess. Moderate inguinal lymphadenopathy. Differential etiologies include iatrogenic and advanced /necrotizing infectious. 3. Colonic stool retention. Orally administered contrast is seen to the level of the mid small bowel. 2.6 cm diameter small bowel with air-fluid levels indicative of ileus or low-grade obstruction. Assessment & Plan - Diagnosis (1) Left buttock abscess Is this a current diagnosis for this admission?: Yes (2) Abscess of right buttock Is this a current diagnosis for this admission?: Yes (3) Rectal fistula Is this a current diagnosis for this admission?: Yes - Plan Summary Plan Summary: s/p extensive perineal and perirectal debridement for sacral,ischial abscess now with colostomy wound vac placed yesterday plan advnce to full liquids out of bed today will change wound vac in 2 days.
[2019-07-04] MEDS ORDERED: CALCIUM GLUC IN NACL, ISO-OSM 1 GM/50 ML RTUPB IV ONE (09:00)
[2019-07-04] MEDS: CARVEDILOL 6.25 MG TABLET PO SCH ×2 (11:10→21:25)
[2019-07-04] MEDS: CITALOPRAM HYDROBROMIDE 20 MG TABLET PO SCH (11:10)
[2019-07-04] MEDS: PANTOPRAZOLE SODIUM 40 MG VIAL IV SCH ×2 (11:10→21:25)
--- NOTE | 2019-07-04 13:22 | PDOC PROGRESS REPORT ---
Subjective Progress Note for:: 07/04/19 Reason For Visit: SEPSIS,PERIANAL ABSCESSES WITH POSSIBLE FISTULA 07/04/2019 Rectal abscess, sepsis, necrotizing fasciitis Physical Exam Vital Signs: Temp Pulse Resp BP Pulse Ox 98.5 F 74 18 116/58 L 100 07/04/19 08:00 07/04/19 08:00 07/04/19 08:00 07/04/19 08:00 07/04/19 08:00 Intake & Output 07/03/19 07/04/19 07/05/19 06:59 06:59 06:59 Intake Total 3548 3086 Output Total 700 650 Balance 2848 2436 Weight 82.9 kg 87.6 kg 87.6 kg General appearance: PRESENT: no acute distress Respiratory exam: PRESENT: clear to auscultation florentin. ABSENT: rales, rhonchi, wheezes Cardiovascular exam: PRESENT: RRR. ABSENT: diastolic murmur, rubs, systolic murmur Neurological exam: PRESENT: altered, other - Due to narcotics Psychiatric exam: PRESENT: flat affect Results Laboratory Results: 07/04/19 04:20 07/03/19 05:55 07/04/19 07/04/19 04:20 04:20 WBC 12.1 H RBC 2.98 L Hgb 10.5 L Hct 29.0 L MCV 97 MCH 35.2 H MCHC 36.3 H RDW 13.7 Plt Count 285 Seg Neutrophils % 68.9 Magnesium 2.1 07/01/19 04:50 Perirectal Gram Stain - Final 07/01/19 04:50 Perirectal Wound Culture - Final Escherichia Coli Strep Anginosus Group Prevotella Species Peptostreptococcus Species 06/30/19 20:55 Buttocks - Abscess Gram Stain - Final 06/30/19 20:55 Buttocks - Abscess Wound Culture - Final Escherichia Coli Strep Anginosus Group Prevotella Species Peptostreptococcus Species Impressions: Thoracic Spine X-Ray 06/30/19 16:30 IMPRESSION: No acute fracture. Ribs w/Chest X-Ray 06/30/19 16:31 IMPRESSION: NO PNEUMOTHORAX. NO DISPLACED RIB FRACTURES. Abdomen/Pelvis CT 06/30/19 21:01 IMPRESSION: 1. 2.5 cm lesion of the upper pole of the left kidney. Differential diagnosis includes neoplasm. Recommend dynamic contrast CT or MRI of the kidneys. 2. Soft tissue emphysema of subcutaneous bilateral buttocks and perineum, left more than right. Soft tissue opacity at the pelvic floor may indicate phlegmon or rectal prolapse. No significant drainable fluid collection or abscess. Moderate inguinal lymphadenopathy. Differential etiologies include iatrogenic and advanced /necrotizing infectious. 3. Colonic stool retention. Orally administered contrast is seen to the level of the mid small bowel. 2.6 cm diameter small bowel with air-fluid levels indicative of ileus or low-grade obstruction. Assessment and Plan - Diagnosis (1) Abscess of right buttock Is this a current diagnosis for this admission?: Yes (2) Left buttock abscess Is this a current diagnosis for this admission?: Yes (3) Mitral valve prolapse Is this a current diagnosis for this admission?: Yes (4) Rectal fistula Is this a current diagnosis for this admission?: Yes (5) Sepsis Qualifiers: Sepsis type: sepsis due to unspecified organism Sepsis acute organ dysfunction status: with acute organ dysfunction Severe sepsis acute organ dysfunction type: acute renal failure Acute renal failure type: with acute tubular necrosis Severe sepsis shock status: without septic shock Qualified Code(s): A41.9 - Sepsis, unspecified organism; R65.20 - Severe sepsis without septic shock; N17.0 - Acute kidney failure with tubular necrosis Is this a current diagnosis for this admission?: Yes (6) Soft tissue infection Is this a current diagnosis for this admission?: Yes - Plan Summary Summary: 07/02/2019 This morning her vital signs are stable temperature 98.5 pulse 55 blood pressure 117/64 O2 sat was 98% on 1-1/2 L Patient's pulse and blood pressure both have been running low Last night patient went to the OR where debridement of the buttock necrotizing soft tissue infection was performed. White count on admission was 19.2 it is gone down to 13.2 IV fluids have been running at 250/h due to hypotension Patient is currently on IV Zosyn Patient went back to the OR today for a laparoscopic colostomy July 03, 2019 Patient's labs continue to improve on admission her white blood cell count was 19.2, yesterday it was 13.2 and today it is 9.7 hemoglobin is stable at 10 Chemistry shows a potassium has come up to 4.1 Calcium and albumin remain low, will be supplemented Wound culture is positive x2, appears to be sensitive to meropenem Patient remains afebrile with good blood pressure and pulse. Will decrease IV fluids to KVO Surgery sees patient daily for her wound care and colostomy site. With the help of 2 nurses I have inspected patient's wound, it appears to be dry and clean, ever rather large in diameter and depth 07/04/2019 Temperature 98.6, patient has been afebrile for 72 hours Pulse 60-70 blood pressure 117/51 White count today is gone up slightly to 12.1 from 9.7 yesterday, probably not significant Corrected calcium level is 8.8. This morning patient was so heavily sedated she was falling asleep while talking to me. I have decreased her Dilaudid from 2 mg down to 1 mg I think at time of discharge patient will benefit from an LTAC placement. I think her wound care will be too involved and extensive for [facility] fa cility. I have asked nursing to start this process. I have consulted dietary for her nutritional needs for wound healing. - Time Time Spent with patient: 25-34 minutes
[2019-07-04] MEDS ORDERED: NORMAL SALINE 250 ML IV ONE (17:45)
[2019-07-04] MEDS: NORMAL SALINE 1000 ML 1,000 ML IV PRN (18:04)
[2019-07-05] MEDS: NORMAL SALINE 1000 ML 1,000 ML IV PRN ×3 (04:24→22:36)
[2019-07-05] MEDS: KETOROLAC TROMETHAMINE INJ/PF 30 MG/1 ML SDV IV SCH ×4 (05:17→23:49)
[2019-07-05] MEDS: HEPARIN SOD (PORCINE) 5,000 UNIT/ML 1 ML VIAL SUBCUT SCH ×3 (05:18→21:11)
[2019-07-05] MEDS: LEVOTHYROXINE SODIUM 0.05 MG TABLET PO SCH (05:18)
[2019-07-05] MEDS: PIPERACILLIN SODIUM/TAZOBACTAM 3.375 GM in NORMAL SALINE 100 ML IV SCH (05:20)
[2019-07-05] MEDS: PANTOPRAZOLE SODIUM 40 MG VIAL IV SCH ×2 (09:50→21:11)
[2019-07-05] MEDS: HYDROMORPHONE HCL INJ/PF 2 MG/ML AMPULE IV PRN (09:50)
[2019-07-05] MEDS: CARVEDILOL 6.25 MG TABLET PO SCH ×2 (09:51→21:11)
[2019-07-05] MEDS: CITALOPRAM HYDROBROMIDE 20 MG TABLET PO SCH (09:51)
[2019-07-05] MEDS: CEFTRIAXONE 1 GM/D5W RTU 1 GM/50 ML RTUPB IV SCH ×2 (09:51→21:10)
--- NOTE | 2019-07-05 11:42 | PDOC PROGRESS REPORT ---
Subjective Progress Note for:: 07/05/19 Reason For Visit: SEPSIS,PERIANAL ABSCESSES WITH POSSIBLE FISTULA 07/05/2019 Patient admitted with sepsis perirectal abscess and possible fistula, fibromyalgia Physical Exam Vital Signs: Temp Pulse Resp BP Pulse Ox 98.5 F 74 16 122/54 L 100 07/05/19 07:48 07/05/19 07:48 07/05/19 07:48 07/05/19 07:48 07/05/19 07:48 Intake & Output 07/04/19 07/05/19 07/06/19 06:59 06:59 06:59 Intake Total 3086 2009 50 Output Total 650 1050 Balance 2436 960 50 Weight 87.6 kg 88.5 kg General appearance: PRESENT: no acute distress Respiratory exam: PRESENT: clear to auscultation florentin. ABSENT: rales, rhonchi, wheezes Cardiovascular exam: PRESENT: RRR. ABSENT: diastolic murmur, rubs, systolic murmur Rectal exam: PRESENT: deferred Neurological exam: PRESENT: alert, awake, oriented to person, oriented to place, oriented to time, oriented to situation, CN II-XII grossly intact. ABSENT: motor sensory deficit Psychiatric exam: PRESENT: appropriate affect, normal mood. ABSENT: homicidal ideation, suicidal ideation Results Laboratory Results: 07/04/19 04:20 07/03/19 05:55 07/01/19 04:50 Perirectal Gram Stain - Final 07/01/19 04:50 Perirectal Wound Culture - Final Escherichia Coli Strep Anginosus Group Prevotella Species Peptostreptococcus Species 06/30/19 20:55 Buttocks - Abscess Gram Stain - Final 06/30/19 20:55 Buttocks - Abscess Wound Culture - Final Escherichia Coli Strep Anginosus Group Prevotella Species Peptostreptococcus Species Impressions: Thoracic Spine X-Ray 06/30/19 16:30 IMPRESSION: No acute fracture. Ribs w/Chest X-Ray 06/30/19 16:31 IMPRESSION: NO PNEUMOTHORAX. NO DISPLACED RIB FRACTURES. Abdomen/Pelvis CT 06/30/19 21:01 IMPRESSION: 1. 2.5 cm lesion of the upper pole of the left kidney. Differential diagnosis includes neoplasm. Recommend dynamic contrast CT or MRI of the kidneys. 2. Soft tissue emphysema of subcutaneous bilateral buttocks and perineum, left more than right. Soft tissue opacity at the pelvic floor may indicate phlegmon or rectal prolapse. No significant drainable fluid collection or abscess. Moderate inguinal lymphadenopathy. Differential etiologies include iatrogenic and advanced /necrotizing infectious. 3. Colonic stool retention. Orally administered contrast is seen to the level of the mid small bowel. 2.6 cm diameter small bowel with air-fluid levels indicative of ileus or low-grade obstruction. Assessment and Plan - Diagnosis (1) Abscess of right buttock Is this a current diagnosis for this admission?: Yes (2) Left buttock abscess Is this a current diagnosis for this admission?: Yes (3) Mitral valve prolapse Is this a current diagnosis for this admission?: Yes (4) Rectal fistula Is this a current diagnosis for this admission?: Yes (5) Sepsis Qualifiers: Sepsis type: sepsis due to unspecified organism Sepsis acute organ dysfunction status: with acute organ dysfunction Severe sepsis acute organ dysfunction type: acute renal failure Acute renal failure type: with acute tubular necrosis Severe sepsis shock status: without septic shock Qualified Code(s): A41.9 - Sepsis, unspecified organism; R65.20 - Severe sepsis without septic shock; N17.0 - Acute kidney failure with tubular necrosis Is this a current diagnosis for this admission?: Yes (6) Soft tissue infection Is this a current diagnosis for this admission?: Yes - Plan Summary Summary: 07/02/2019 This morning her vital signs are stable temperature 98.5 pulse 55 blood pressure 117/64 O2 sat was 98% on 1-1/2 L Patient's pulse and blood pressure both have been running low Last night patient went to the OR where debridement of the buttock necrotizing soft tissue infection was performed. White count on admission was 19.2 it is gone down to 13.2 IV fluids have been running at 250/h due to hypotension Patient is currently on IV Zosyn Patient went back to the OR today for a laparoscopic colostomy July 03, 2019 Patient's labs continue to improve on admission her white blood cell count was 19.2, yesterday it was 13.2 and today it is 9.7 hemoglobin is stable at 10 Chemistry shows a potassium has come up to 4.1 Calcium and albumin remain low, will be supplemented Wound culture is positive x2, appears to be sensitive to meropenem Patient remains afebrile with good blood pressure and pulse. Will decrease IV fluids to KVO Surgery sees patient daily for her wound care and colostomy site. With the help of 2 nurses I have inspected patient's wound, it appears to be dry and clean, ever rather large in diameter and depth 07/04/2019 Temperature 98.6, patient has been afebrile for 72 hours Pulse 60-70 blood pressure 117/51 White count today is gone up slightly to 12.1 from 9.7 yesterday, probably not significant Corrected calcium level is 8.8. This morning patient was so heavily sedated she was falling asleep while talking to me. I have decreased her Dilaudid from 2 mg down to 1 mg I think at time of discharge patient will benefit from an LTAC placement. I think her wound care will be too involved and extensive for halfway facility. I have asked nursing to start this process. I have consulted dietary for her nutritional needs for wound healing. 07/05/2019 Today have tried to resume most of her home medicines, those for depression as well as chronic pain, fibromyalgia. DC'd her IV Dilaudid, instead put her back on her extended release OxyContin Switch her IV antibiotic from Zosyn to Rocephin. She will undoubtably be discharged at some time in the future on IV antibiotics. Length will be determined by general surgery will make that decision in the next few days. Patient is complaining of generalized body pain from her "fibromyalgia". Patient remains afebrile 98 8 pulse of 60-70 blood pressure 118/55 White blood cells 12.1 calcium 7.2 wound cultures are positive Postop day #6 for her colostomy Postop day 7 for her initial debridement - Time Time Spent with patient: 25-34 minutes
[2019-07-05] MEDS ORDERED: OXYCODONE HCL SR 10 MG TABLET PO SCH (12:30)
[2019-07-05] MEDS: TIZANIDINE HCL 4 MG TABLET PO SCH ×3 (13:50→23:49)
[2019-07-05] MEDS: OXYCODONE HCL IR 5 MG TABLET PO SCH ×3 (13:51→23:49)
[2019-07-05] MEDS: GABAPENTIN 300 MG CAPSULE PO SCH ×3 (13:51→21:11)
[2019-07-05] MEDS ORDERED: CARVEDILOL 6.25 MG TABLET PO SCH (18:00)
[2019-07-05] MEDS: ARIPIPRAZOLE 5 MG TABLET PO SCH (18:34)
[2019-07-05] MEDS: ATORVASTATIN CALCIUM 40 MG TABLET PO SCH (21:11)
[2019-07-06] MEDS: TIZANIDINE HCL 4 MG TABLET PO SCH ×4 (05:13→23:24)
[2019-07-06] MEDS: OXYCODONE HCL IR 5 MG TABLET PO SCH ×4 (05:13→23:24)
[2019-07-06] MEDS: KETOROLAC TROMETHAMINE INJ/PF 30 MG/1 ML SDV IV SCH ×2 (05:14→12:08)
[2019-07-06] MEDS: LEVOTHYROXINE SODIUM 0.05 MG TABLET PO SCH (05:14)
[2019-07-06] MEDS: HEPARIN SOD (PORCINE) 5,000 UNIT/ML 1 ML VIAL SUBCUT SCH ×3 (05:14→21:32)
[2019-07-06] MEDS ORDERED: LEVOTHYROXINE SODIUM 0.05 MG TABLET PO SCH (06:00)
[2019-07-06] MEDS: NORMAL SALINE 1000 ML 1,000 ML IV PRN ×3 (06:33→23:53)
--- NOTE | 2019-07-06 08:39 | PDOC PROGRESS REPORT ---
Subjective Progress Note for:: 07/06/19 Subjective:: feels better roberto reg diet Reason For Visit: SEPSIS,PERIANAL ABSCESSES WITH POSSIBLE FISTULA Physical Exam Vital Signs: Temp Pulse Resp BP Pulse Ox 98.6 F 65 16 111/56 L 100 07/06/19 03:57 07/06/19 07:00 07/06/19 03:57 07/06/19 03:57 07/06/19 03:57 Intake & Output 07/05/19 07/06/19 07/07/19 06:59 06:59 06:59 Intake Total 2009 4488 Output Total 0 1310 Balance 960 3179 Weight 88.5 kg 91.8 kg General appearance: PRESENT: no acute distress Head exam: PRESENT: normocephalic Eye exam: PRESENT: EOMI Ear exam: PRESENT: normal external ear exam Mouth exam: PRESENT: moist Neck exam: PRESENT: full ROM Respiratory exam: PRESENT: clear to auscultation florentin Cardiovascular exam: PRESENT: RRR Pulses: PRESENT: normal radial pulses, normal femoral pulses Vascular exam: PRESENT: normal capillary refill Breast: PRESENT: Normal GI/Abdominal exam: PRESENT: soft, other - stoma functioning Rectal exam: PRESENT: other - wound vac removed wound examined clean dry no loculated collection rectum essentially free floating Extremities exam: PRESENT: full ROM Musculoskeletal exam: PRESENT: full ROM Neurological exam: PRESENT: alert, awake, oriented to person, oriented to place Psychiatric exam: PRESENT: appropriate affect Skin exam: PRESENT: dry Results Laboratory Results: 07/04/19 04:20 07/03/19 05:55 06/30/19 20:30 Blood Blood Culture - Final NO GROWTH IN 5 DAYS 06/30/19 19:55 Blood Blood Culture - Final NO GROWTH IN 5 DAYS Impressions: Thoracic Spine X-Ray 06/30/19 16:30 IMPRESSION: No acute fracture. Ribs w/Chest X-Ray 06/30/19 16:31 IMPRESSION: NO PNEUMOTHORAX. NO DISPLACED RIB FRACTURES. Abdomen/Pelvis CT 06/30/19 21:01 IMPRESSION: 1. 2.5 cm lesion of the upper pole of the left kidney. Differential diagnosis includes neoplasm. Recommend dynamic contrast CT or MRI of the kidneys. 2. Soft tissue emphysema of subcutaneous bilateral buttocks and perineum, left more than right. Soft tissue opacity at the pelvic floor may indicate phlegmon or rectal prolapse. No significant drainable fluid collection or abscess. Moderate inguinal lymphadenopathy. Differential etiologies include iatrogenic and advanced /necrotizing infectious. 3. Colonic stool retention. Orally administered contrast is seen to the level of the mid small bowel. 2.6 cm diameter small bowel with air-fluid levels indicative of ileus or low-grade obstruction. Assessment & Plan - Diagnosis (1) Left buttock abscess Is this a current diagnosis for this admission?: Yes (2) Abscess of right buttock Is this a current diagnosis for this admission?: Yes (3) Rectal fistula Is this a current diagnosis for this admission?: Yes - Plan Summary Plan Summary: wound clean, after 3 days of wound vac stoma functioning roberto reg diet afeb vss wound vac replaced discharge planning ok from surgery standpt for dc to snf.
[2019-07-06] MEDS: ACETAMINOPHEN 325 MG TABLET PO PRN (09:03)
[2019-07-06 09:13] LABS: HEMOGLOBIN 10.4 g/dL (12.0-15.5); MEAN CORPUSCULAR HEMOGLOBIN 34.8 pg (27.0-33.4); MEAN CORPUSCULAR HGB CONC 35.7 g/dL (32.0-36.0); MEAN CORPUSCULAR VOLUME 97 fl (80-97); PLATELET COUNT 373 10^3/uL (150-450); RED BLOOD COUNT 2.98 10^6/uL (3.72-5.28); RED CELL DISTRIBUTION WIDTH 13.6 % (11.5-14.0); WHITE BLOOD COUNT 13.2 10^3/uL (4.0-10.5)
[2019-07-06] MEDS: CITALOPRAM HYDROBROMIDE 20 MG TABLET PO SCH (09:18)
[2019-07-06] MEDS: SPIRONOLACTONE 25 MG TABLET PO SCH (09:18)
[2019-07-06] MEDS: GABAPENTIN 300 MG CAPSULE PO SCH ×4 (09:18→21:33)
[2019-07-06] MEDS: FUROSEMIDE 20 MG TABLET PO SCH (09:18)
[2019-07-06] MEDS: PANTOPRAZOLE SODIUM 40 MG VIAL IV SCH ×2 (09:18→21:33)
[2019-07-06] MEDS: CEFTRIAXONE 1 GM/D5W RTU 1 GM/50 ML RTUPB IV SCH ×2 (09:19→21:33)
[2019-07-06] MEDS: CARVEDILOL 6.25 MG TABLET PO SCH ×2 (09:19→21:33)
[2019-07-06 09:27] LABS: BLOOD UREA NITROGEN 12 mg/dL (7-20); CALCIUM 7.7 mg/dL (8.4-10.2); GLUCOSE 97 mg/dL (75-110); POTASSIUM 3.6 mmol/L (3.6-5.0)
[2019-07-06 09:32] LABS: CARBON DIOXIDE 26 mmol/L (22-30); CHLORIDE 109 mmol/L (98-107)
[2019-07-06 09:35] LABS: ABSOLUTE LYMPHOCYTES# (MANUAL) 3.3 10^3/uL (0.5-4.7); ABSOLUTE MONOCYTES # (MANUAL) 0.3 10^3/uL (0.1-1.4); BAND NEUTROPHILS % (MANUAL) 1 % (3-5); BASOPHILS % (MANUAL) 0 % (0-2); EOSINOPHILS % (MANUAL) 5 % (0-6); LYMPHOCYTES % (MANUAL) 25 % (13-45); MONOCYTES % (MANUAL) 2 % (3-13); SEGMENTED NEUTROPHILS % (MAN) 67 % (42-78); TOTAL CELLS COUNTED 100
[2019-07-06 09:36] LABS: ANION GAP 2 (5-19); PLATELET COMMENT ADEQUATE; TOXIC GRANULATION 1+
[2019-07-06] MEDS ORDERED: CITALOPRAM HYDROBROMIDE 20 MG TABLET PO SCH (10:00)
--- NOTE | 2019-07-06 10:25 | PDOC PROGRESS REPORT ---
Subjective Progress Note for:: 07/06/19 Reason For Visit: SEPSIS,PERIANAL ABSCESSES WITH POSSIBLE FISTULA 07/06/2019 Perianal abscess with possible fistula, sepsis Physical Exam Vital Signs: Temp Pulse Resp BP Pulse Ox 98.6 F 65 16 111/56 L 100 07/06/19 03:57 07/06/19 07:00 07/06/19 03:57 07/06/19 03:57 07/06/19 03:57 Intake & Output 07/05/19 07/06/19 07/07/19 06:59 06:59 06:59 Intake Total 2009 4488 Output Total 1050 1310 Balance 960 3179 Weight 88.5 kg 91.8 kg General appearance: PRESENT: no acute distress Respiratory exam: PRESENT: clear to auscultation florentin. ABSENT: rales, rhonchi, wheezes Cardiovascular exam: PRESENT: RRR. ABSENT: diastolic murmur, rubs, systolic murmur Neurological exam: PRESENT: alert, awake, oriented to person, oriented to place, oriented to time, oriented to situation, CN II-XII grossly intact. ABSENT: motor sensory deficit Psychiatric exam: PRESENT: appropriate affect, normal mood. ABSENT: homicidal ideation, suicidal ideation Results Laboratory Results: 07/06/19 08:57 07/06/19 08:57 07/06/19 07/06/19 08:57 08:57 WBC 13.2 H RBC 2.98 L Hgb 10.4 L Hct 29.0 L MCV 97 MCH 34.8 H MCHC 35.7 RDW 13.6 Plt Count 373 Seg Neutrophils % Not Reportable Sodium 136.9 L Potassium 3.6 Chloride 109 H Carbon Dioxide 26 Anion Gap 2 L BUN 12 Creatinine 0.60 Est GFR ( Amer) > 60 Glucose 97 Calcium 7.7 L 06/30/19 20:30 Blood Blood Culture - Final NO GROWTH IN 5 DAYS 06/30/19 19:55 Blood Blood Culture - Final NO GROWTH IN 5 DAYS Impressions: Thoracic Spine X-Ray 06/30/19 16:30 IMPRESSION: No acute fracture. Ribs w/Chest X-Ray 06/30/19 16:31 IMPRESSION: NO PNEUMOTHORAX. NO DISPLACED RIB FRACTURES. Abdomen/Pelvis CT 06/30/19 21:01 IMPRESSION: 1. 2.5 cm lesion of the upper pole of the left kidney. Differential diagnosis includes neoplasm. Recommend dynamic contrast CT or MRI of the kidneys. 2. Soft tissue emphysema of subcutaneous bilateral buttocks and perineum, left more than right. Soft tissue opacity at the pelvic floor may indicate phlegmon or rectal prolapse. No significant drainable fluid collection or abscess. Moderate inguinal lymphadenopathy. Differential etiologies include iatrogenic and advanced /necrotizing infectious. 3. Colonic stool retention. Orally administered contrast is seen to the level of the mid small bowel. 2.6 cm diameter small bowel with air-fluid levels indicative of ileus or low-grade obstruction. Assessment and Plan - Diagnosis (1) Abscess of right buttock Is this a current diagnosis for this admission?: Yes (2) Left buttock abscess Is this a current diagnosis for this admission?: Yes (3) Mitral valve prolapse Is this a current diagnosis for this admission?: Yes (4) Rectal fistula Is this a current diagnosis for this admission?: Yes (5) Sepsis Qualifiers: Sepsis type: sepsis due to unspecified organism Sepsis acute organ dysfunction status: with acute organ dysfunction Severe sepsis acute organ dysfunction type: acute renal failure Acute renal failure type: with acute tubular necrosis Severe sepsis shock status: without septic shock Qualified Code(s): A41.9 - Sepsis, unspecified organism; R65.20 - Severe sepsis without septic shock; N17.0 - Acute kidney failure with tubular necrosis Is this a current diagnosis for this admission?: Yes (6) Soft tissue infection Is this a current diagnosis for this admission?: Yes - Plan Summary Summary: 07/02/2019 This morning her vital signs are stable temperature 98.5 pulse 55 blood pressure 117/64 O2 sat was 98% on 1-1/2 L Patient's pulse and blood pressure both have been running low Last night patient went to the OR where debridement of the buttock necrotizing soft tissue infection was performed. White count on admission was 19.2 it is gone down to 13.2 IV fluids have been running at 250/h due to hypotension Patient is currently on IV Zosyn Patient went back to the OR today for a laparoscopic colostomy July 03, 2019 Patient's labs continue to improve on admission her white blood cell count was 19.2, yesterday it was 13.2 and today it is 9.7 hemoglobin is stable at 10 Chemistry shows a potassium has come up to 4.1 Calcium and albumin remain low, will be supplemented Wound culture is positive x2, appears to be sensitive to meropenem Patient remains afebrile with good blood pressure and pulse. Will decrease IV fluids to KVO Surgery sees patient daily for her wound care and colostomy site. With the help of 2 nurses I have inspected patient's wound, it appears to be dry and clean, ever rather large in diameter and depth 07/04/2019 Temperature 98.6, patient has been afebrile for 72 hours Pulse 60-70 blood pressure 117/51 White count today is gone up slightly to 12.1 from 9.7 yesterday, probably not significant Corrected calcium level is 8.8. This morning patient was so heavily sedated she was falling asleep while talking to me. I have decreased her Dilaudid from 2 mg down to 1 mg I think at time of discharge patient will benefit from an LTAC placement. I think her wound care will be too involved and extensive for half-way facility. I have asked nursing to start this process. I have consulted dietary for her nutritional needs for wound healing. 07/05/2019 Today have tried to resume most of her home medicines, those for depression as well as chronic pain, fibromyalgia. DC'd her IV Dilaudid, instead put her back on her extended release OxyContin Switch her IV antibiotic from Zosyn to Rocephin. She will undoubtably be discharged at some time in the future on IV antibiotics. Length will be determined by general surgery will make that decision in the next few days. Patient is complaining of generalized body pain from her "fibromyalgia". Patient remains afebrile 98 8 pulse of 60-70 blood pressure 118/55 White blood cells 12.1 calcium 7.2 wound cultures are positive Postop day 3 for her colostomy Postop day 4 for her initial debridement 07/06/2019 Vital signs are stable WBC is 13.2 which is stable, hemoglobin 10.4 which is stable Chemistry panel normal IV antibiotics a day # 7. Continue IV antibiotics. General surgery states that she is medically stable to be released to long-term care facility for wound management. Discharge planning is going to get this sta rted on Monday. - Time Time Spent with patient: 25-34 minutes
[2019-07-06] MEDS: ARIPIPRAZOLE 5 MG TABLET PO SCH (17:18)
[2019-07-06] MEDS: ATORVASTATIN CALCIUM 40 MG TABLET PO SCH (21:33)
[2019-07-06] MEDS ORDERED: KETOROLAC TROMETHAMINE INJ/PF 30 MG/1 ML SDV IV ONE (22:10)
[2019-07-07] MEDS: KETOROLAC TROMETHAMINE INJ/PF 30 MG/1 ML SDV IV SCH ×4 (02:31→22:40)
[2019-07-07] MEDS: OXYCODONE HCL IR 5 MG TABLET PO SCH ×3 (05:23→17:03)
[2019-07-07] MEDS: TIZANIDINE HCL 4 MG TABLET PO SCH ×3 (05:23→17:04)
[2019-07-07] MEDS: HEPARIN SOD (PORCINE) 5,000 UNIT/ML 1 ML VIAL SUBCUT SCH ×3 (05:23→22:40)
[2019-07-07] MEDS: LEVOTHYROXINE SODIUM 0.05 MG TABLET PO SCH (05:23)
[2019-07-07] MEDS: NORMAL SALINE 1000 ML 1,000 ML IV PRN (06:41)
[2019-07-07] MEDS: PANTOPRAZOLE SODIUM 40 MG VIAL IV SCH ×2 (10:17→22:40)
[2019-07-07] MEDS: FUROSEMIDE 20 MG TABLET PO SCH ×2 (10:18→17:04)
[2019-07-07] MEDS: CARVEDILOL 6.25 MG TABLET PO SCH ×2 (10:18→22:41)
[2019-07-07] MEDS: GABAPENTIN 300 MG CAPSULE PO SCH ×4 (10:18→22:41)
[2019-07-07] MEDS: SPIRONOLACTONE 25 MG TABLET PO SCH (10:18)
[2019-07-07] MEDS: CEFTRIAXONE 1 GM/D5W RTU 1 GM/50 ML RTUPB IV SCH ×2 (10:18→22:41)
[2019-07-07] MEDS: CITALOPRAM HYDROBROMIDE 20 MG TABLET PO SCH (10:19)
--- NOTE | 2019-07-07 10:22 | PDOC PROGRESS REPORT ---
Subjective Progress Note for:: 07/07/19 Reason For Visit: SEPSIS,PERIANAL ABSCESSES WITH POSSIBLE FISTULA 07/07/2019 Sacral abscess, sepsis Physical Exam Vital Signs: Temp Pulse Resp BP Pulse Ox 98.3 F 66 16 122/65 100 07/07/19 08:05 07/07/19 08:05 07/07/19 08:05 07/07/19 08:05 07/07/19 08:05 Intake & Output 07/06/19 07/07/19 07/08/19 06:59 06:59 06:59 Intake Total 4489 3611 Output Total 1310 1825 Balance 3179 1786 Weight 91.8 kg 91.5 kg General appearance: PRESENT: no acute distress Respiratory exam: PRESENT: clear to auscultation florentin. ABSENT: rales, rhonchi, wheezes Cardiovascular exam: PRESENT: RRR. ABSENT: diastolic murmur, rubs, systolic murmur Musculoskeletal exam: PRESENT: tenderness, other - Right axilla rib pain approximately T5-T6. Tender to palpate Neurological exam: PRESENT: alert, awake, oriented to person, oriented to place, oriented to time, oriented to situation, CN II-XII grossly intact. ABSENT: motor sensory deficit Psychiatric exam: PRESENT: appropriate affect, normal mood. ABSENT: homicidal ideation, suicidal ideation Results Laboratory Results: 07/06/19 08:57 07/06/19 08:57 Impressions: Thoracic Spine X-Ray 06/30/19 16:30 IMPRESSION: No acute fracture. Ribs w/Chest X-Ray 06/30/19 16:31 IMPRESSION: NO PNEUMOTHORAX. NO DISPLACED RIB FRACTURES. Abdomen/Pelvis CT 06/30/19 21:01 IMPRESSION: 1. 2.5 cm lesion of the upper pole of the left kidney. Differential diagnosis includes neoplasm. Recommend dynamic contrast CT or MRI of the kidneys. 2. Soft tissue emphysema of subcutaneous bilateral buttocks and perineum, left more than right. Soft tissue opacity at the pelvic floor may indicate phlegmon or rectal prolapse. No significant drainable fluid collection or abscess. Moderate inguinal lymphadenopathy. Differential etiologies include iatrogenic and advanced /necrotizing infectious. 3. Colonic stool retention. Orally administered contrast is seen to the level of the mid small bowel. 2.6 cm diameter small bowel with air-fluid levels indicative of ileus or low-grade obstruction. Assessment and Plan - Diagnosis (1) Abscess of right buttock Is this a current diagnosis for this admission?: Yes (2) Left buttock abscess Is this a current diagnosis for this admission?: Yes (3) Mitral valve prolapse Is this a current diagnosis for this admission?: Yes (4) Rectal fistula Is this a current diagnosis for this admission?: Yes (5) Sepsis Qualifiers: Sepsis type: sepsis due to unspecified organism Sepsis acute organ dysfunction status: with acute organ dysfunction Severe sepsis acute organ dysfunction type: acute renal failure Acute renal failure type: with acute tubular necrosis Severe sepsis shock status: without septic shock Qualified Code(s): A41.9 - Sepsis, unspecified organism; R65.20 - Severe sepsis without septic shock; N17.0 - Acute kidney failure with tubular necrosis Is this a current diagnosis for this admission?: Yes (6) Soft tissue infection Is this a current diagnosis for this admission?: Yes - Plan Summary Summary: 07/02/2019 This morning her vital signs are stable temperature 98.5 pulse 55 blood pressure 117/64 O2 sat was 98% on 1-2 L Patient's pulse and blood pressure both have been running low Last night patient went to the OR where debridement of the buttock necrotizing soft tissue infection was performed. White count on admission was 19.2 it is gone down to 13.2 IV fluids have been running at 250/h due to hypotension Patient is currently on IV Zosyn Patient went back to the OR today for a laparoscopic colostomy July 03, 2019 Patient's labs continue to improve on admission her white blood cell count was 19.2, yesterday it was 13.2 and today it is 9.7 hemoglobin is stable at 10 Chemistry shows a potassium has come up to 4.1 Calcium and albumin remain low, will be supplemented Wound culture is positive x2, appears to be sensitive to meropenem Patient remains afebrile with good blood pressure and pulse. Will decrease IV fluids to KVO Surgery sees patient daily for her wound care and colostomy site. With the help of 2 nurses I have inspected patient's wound, it appears to be dry and clean, ever rather large in diameter and depth 07/04/2019 Temperature 98.6, patient has been afebrile for 72 hours Pulse 60-70 blood pressure 117/51 White count today is gone up slightly to 12.1 from 9.7 yesterday, probably not significant Corrected calcium level is 8.8. This morning patient was so heavily sedated she was falling asleep while talking to me. I have decreased her Dilaudid from 2 mg down to 1 mg I think at time of discharge patient will benefit from an LTAC placement. I think her wound care will be too involved and extensive for halfway facility. I have asked nursing to start this process. I have consulted dietary for her nutritional needs for wound healing. 07/05/2019 Today have tried to resume most of her home medicines, those for depression as well as chronic pain, fibromyalgia. DC'd her IV Dilaudid, instead put her back on her extended release OxyContin Switch her IV antibiotic from Zosyn to Rocephin. She will undoubtably be discharged at some time in the future on IV antibiotics. Length will be determined by general surgery will make that decision in the next few days. Patient is complaining of generalized body pain from her "fibromyalgia". Patient remains afebrile 98 8 pulse of 60-70 blood pressure 118/55 White blood cells 12.1 calcium 7.2 wound cultures are positive Postop day 3 for her colostomy Postop day 4 for her initial debridement 07/06/2019 Vital signs are stable WBC is 13.2 which is stable, hemoglobin 10.4 which is stable Chemistry panel normal IV antibiotics a day # 7. Continue IV antibiotics. General surgery states that she is medically stable to be released to long-term care facility for wound management. Discharge planning is going to get this started on Monday. 07/07/2019 Temperature 98.3 pulse 66 blood pressure 122/65 Patient is using 2 L nasal cannula oxygen but I do not think she actually needs it. Sitting up in bed no respiratory distress Labs appear normal Patient getting IV Rocephin LTAC placement has been initiated Patient is complaining of some right-sided rib pain in the axilla. Lungs however are clear. Did order a portable chest x-ray Still complaining of some left hand pain where she had an IV previously. I ordered a K pad for this Patient is eating well, stoma is functioning well - Time Time Spent with patient: 25-34 minutes
--- NOTE | 2019-07-07 10:42 | PDOC PROGRESS REPORT ---
Subjective Progress Note for:: 07/07/19 Reason For Visit: SEPSIS,PERIANAL ABSCESSES WITH POSSIBLE FISTULA Physical Exam Vital Signs: Temp Pulse Resp BP Pulse Ox 98.3 F 66 16 122/65 100 07/07/19 08:05 07/07/19 08:05 07/07/19 08:05 07/07/19 08:05 07/07/19 08:05 Intake & Output 07/06/19 07/07/19 07/08/19 06:59 06:59 06:59 Intake Total 4489 3611 Output Total 1310 1825 Balance 3179 1786 Weight 91.8 kg 91.5 kg Results Laboratory Results: 07/06/19 08:57 07/06/19 08:57 Impressions: Thoracic Spine X-Ray 06/30/19 16:30 IMPRESSION: No acute fracture. Ribs w/Chest X-Ray 06/30/19 16:31 IMPRESSION: NO PNEUMOTHORAX. NO DISPLACED RIB FRACTURES. Abdomen/Pelvis CT 06/30/19 21:01 IMPRESSION: 1. 2.5 cm lesion of the upper pole of the left kidney. Differential diagnosis includes neoplasm. Recommend dynamic contrast CT or MRI of the kidneys. 2. Soft tissue emphysema of subcutaneous bilateral buttocks and perineum, left more than right. Soft tissue opacity at the pelvic floor may indicate phlegmon or rectal prolapse. No significant drainable fluid collection or abscess. Moderate inguinal lymphadenopathy. Differential etiologies include iatrogenic and advanced /necrotizing infectious. 3. Colonic stool retention. Orally administered contrast is seen to the level of the mid small bowel. 2.6 cm diameter small bowel with air-fluid levels indicative of ileus or low-grade obstruction. Assessment & Plan - Plan Summary Plan Summary: 69 y/o F s/p colostomy placement for diversion due to a large perirectal wound. The patient is without complaint today. She is eating without difficulty. Her colostomy is productive. Cont with physical therapy. VAC was changed yesterday. Due for another change tue or mon. Ok for discharge to rehab when cleared by medicine.
--- NOTE | 2019-07-07 10:54 | RADIOLOGY REPORT (SQ) ---
EXAM DESCRIPTION: CHEST SINGLE VIEW IMAGES COMPLETED DATE/TIME: 07/07/2019 10:43 am REASON FOR STUDY: Right-sided rib pain COMPARISON: 06/18/2017 FINDINGS: AP portable upright single-view chest. Vascular congestion. Mild interstitial edema. Basilar areas of subsegmental atelectasis with a smal l amount of pleural fluid. No pneumothorax. No gross fracture. TECHNICAL DOCUMENTATION: JOB ID: [id number] Reading location - IP/workstation name: [email or web address]
[2019-07-07] MEDS: ARIPIPRAZOLE 5 MG TABLET PO SCH (17:03)
[2019-07-07] MEDS: ATORVASTATIN CALCIUM 40 MG TABLET PO SCH (22:41)
[2019-07-08] MEDS: OXYCODONE HCL IR 5 MG TABLET PO SCH ×4 (00:14→17:36)
[2019-07-08] MEDS: TIZANIDINE HCL 4 MG TABLET PO SCH ×4 (00:14→17:36)
[2019-07-08] MEDS: KETOROLAC TROMETHAMINE INJ/PF 30 MG/1 ML SDV IV SCH ×4 (05:43→22:11)
[2019-07-08] MEDS: HEPARIN SOD (PORCINE) 5,000 UNIT/ML 1 ML VIAL SUBCUT SCH ×3 (05:43→22:12)
[2019-07-08] MEDS: LEVOTHYROXINE SODIUM 0.05 MG TABLET PO SCH (05:43)
--- NOTE | 2019-07-08 07:32 | Progress Note ---
Provider Note Provider Note: Patient is medically stable to discharge from the hospital after the next wound VAC change on either Monday or Monday
[2019-07-08] MEDS: SPIRONOLACTONE 25 MG TABLET PO SCH (09:38)
[2019-07-08] MEDS: FUROSEMIDE 20 MG TABLET PO SCH ×2 (09:38→17:36)
[2019-07-08] MEDS: CARVEDILOL 6.25 MG TABLET PO SCH ×2 (09:38→22:12)
[2019-07-08] MEDS: GABAPENTIN 300 MG CAPSULE PO SCH ×4 (09:38→22:12)
[2019-07-08] MEDS: CITALOPRAM HYDROBROMIDE 20 MG TABLET PO SCH (09:38)
[2019-07-08] MEDS: CEFTRIAXONE 1 GM/D5W RTU 1 GM/50 ML RTUPB IV SCH ×2 (09:39→22:13)
--- NOTE | 2019-07-08 10:03 | PDOC PROGRESS REPORT ---
Subjective Progress Note for:: 07/08/19 Reason For Visit: SEPSIS,PERIANAL ABSCESSES WITH POSSIBLE FISTULA Physical Exam Vital Signs: Temp Pulse Resp BP Pulse Ox 98.6 F 64 12 110/52 L 98 07/08/19 07:34 07/08/19 07:34 07/08/19 07:34 07/08/19 07:34 07/08/19 07:34 Intake & Output 07/07/19 07/08/19 07/09/19 06:59 06:59 06:59 Intake Total 3611 1716 Output Total 1825 3000 Balance 1786 -1284 Weight 91.5 kg 92.9 kg Results Laboratory Results: 07/06/19 08:57 07/06/19 08:57 Impressions: Thoracic Spine X-Ray 06/30/19 16:30 IMPRESSION: No acute fracture. Ribs w/Chest X-Ray 06/30/19 16:31 IMPRESSION: NO PNEUMOTHORAX. NO DISPLACED RIB FRACTURES. Abdomen/Pelvis CT 06/30/19 21:01 IMPRESSION: 1. 2.5 cm lesion of the upper pole of the left kidney. Differential diagnosis includes neoplasm. Recommend dynamic contrast CT or MRI of the kidneys. 2. Soft tissue emphysema of subcutaneous bilateral buttocks and perineum, left more than right. Soft tissue opacity at the pelvic floor may indicate phlegmon or rectal prolapse. No significant drainable fluid collection or abscess. Moderate inguinal lymphadenopathy. Differential etiologies include iatrogenic and advanced /necrotizing infectious. 3. Colonic stool retention. Orally administered contrast is seen to the level of the mid small bowel. 2.6 cm diameter small bowel with air-fluid levels indicative of ileus or low-grade obstruction. Assessment & Plan - Plan Summary Plan Summary: 69 y/o F s/p colostomy placement for diversion due to a large perirectal wound. The patient is without complaint today. She is eating without difficulty. Her colostomy is productive. Cont with physical therapy. VAC was changed Monday. Due for another change mon or mon. Ok for discharge to rehab when cleared by medicine.
--- NOTE | 2019-07-08 12:14 | PDOC PROGRESS REPORT ---
Subjective Progress Note for:: 07/08/19 Reason For Visit: SEPSIS,PERIANAL ABSCESSES WITH POSSIBLE FISTULA 07/08/2019 Perianal abscess, sepsis, atrial valve prolapse, fibromyalgia, chronic pain syndrome Physical Exam Vital Signs: Temp Pulse Resp BP Pulse Ox 98.6 F 64 12 110/52 L 98 07/08/19 07:34 07/08/19 07:34 07/08/19 07:34 07/08/19 07:34 07/08/19 07:34 Intake & Output 07/07/19 07/08/19 07/09/19 06:59 06:59 06:59 Intake Total 3611 1716 Output Total 1825 3000 Balance 1786 -1284 Weight 91.5 kg 92.9 kg General appearance: PRESENT: no acute distress Respiratory exam: PRESENT: clear to auscultation florentin. ABSENT: rales, rhonchi, wheezes Cardiovascular exam: PRESENT: RRR. ABSENT: diastolic murmur, rubs, systolic murmur Neurological exam: PRESENT: alert, awake, oriented to person, oriented to place, oriented to time, oriented to situation, CN II-XII grossly intact. ABSENT: motor sensory deficit Psychiatric exam: PRESENT: appropriate affect, normal mood. ABSENT: homicidal ideation, suicidal ideation Results Laboratory Results: 07/06/19 08:57 07/06/19 08:57 Impressions: Thoracic Spine X-Ray 06/30/19 16:30 IMPRESSION: No acute fracture. Ribs w/Chest X-Ray 06/30/19 16:31 IMPRESSION: NO PNEUMOTHORAX. NO DISPLACED RIB FRACTURES. Abdomen/Pelvis CT 06/30/19 21:01 IMPRESSION: 1. 2.5 cm lesion of the upper pole of the left kidney. Differential diagnosis includes neoplasm. Recommend dynamic contrast CT or MRI of the kidneys. 2. Soft tissue emphysema of subcutaneous bilateral buttocks and perineum, left more than right. Soft tissue opacity at the pelvic floor may indicate phlegmon or rectal prolapse. No significant drainable fluid collection or abscess. Moderate inguinal lymphadenopathy. Differential etiologies include iatrogenic and advanced /necrotizing infectious. 3. Colonic stool retention. Orally administered contrast is seen to the level of the mid small bowel. 2.6 cm diameter small bowel with air-fluid levels indicative of ileus or low-grade obstruction. Assessment and Plan - Diagnosis (1) Abscess of right buttock Is this a current diagnosis for this admission?: Yes (2) Left buttock abscess Is this a current diagnosis for this admission?: Yes (3) Mitral valve prolapse Is this a current diagnosis for this admission?: Yes (4) Rectal fistula Is this a current diagnosis for this admission?: Yes (5) Sepsis Qualifiers: Sepsis type: sepsis due to unspecified organism Sepsis acute organ dysfunction status: with acute organ dysfunction Severe sepsis acute organ dysfunction type: acute renal failure Acute renal failure type: with acute tubular necrosis Severe sepsis shock status: without septic shock Qualified Code(s): A41.9 - Sepsis, unspecified organism; R65.20 - Severe sepsis without septic shock; N17.0 - Acute kidney failure with tubular necrosis Is this a current diagnosis for this admission?: Yes (6) Soft tissue infection Is this a current diagnosis for this admission?: Yes (7) Chronic pain Is this a current diagnosis for this admission?: Yes (8) Fibromyalgia Is this a current diagnosis for this admission?: Yes - Plan Summary Summary: 07/02/2019 This morning her vital signs are stable temperature 98.5 pulse 55 blood pressure 117/64 O2 sat was 98% on 1-2 L Patient's pulse and blood pressure both have been running low Last night patient went to the OR where debridement of the buttock necrotizing soft tissue infection was performed. White count on admission was 19.2 it is gone down to 13.2 IV fluids have been running at 250/h due to hypotension Patient is currently on IV Zosyn Patient went back to the OR today for a laparoscopic colostomy July 03, 2019 Patient's labs continue to improve on admission her white blood cell count was 19.2, yesterday it was 13.2 and today it is 9.7 hemoglobin is stable at 10 Chemistry shows a potassium has come up to 4.1 Calcium and albumin remain low, will be supplemented Wound culture is positive x2, appears to be sensitive to meropenem Patient remains afebrile with good blood pressure and pulse. Will decrease IV fluids to KVO Surgery sees patient daily for her wound care and colostomy site. With the help of 2 nurses I have inspected patient's wound, it appears to be dry and clean, ever rather large in diameter and depth 07/04/2019 Temperature 98.6, patient has been afebrile for 72 hours Pulse 60-70 blood pressure 117/51 White count today is gone up slightly to 12.1 from 9.7 yesterday, probably not significant Corrected calcium level is 8.8. This morning patient was so heavily sedated she was falling asleep while talking to me. I have decreased her Dilaudid from 2 mg down to 1 mg I think at time of discharge patient will benefit from an LTAC placement. I think her wound care will be too involved and extensive for [facility] facility. I have asked nursing to start this process. I have consulted dietary for her nutritional needs for wound healing. 07/05/2019 Today have tried to resume most of her home medicines, those for depression as well as chronic pain, fibromyalgia. DC'd her IV Dilaudid, instead put her back on her extended release OxyContin Switch her IV antibiotic from Zosyn to Rocephin. She will undoubtably be discharged at some time in the future on IV antibiotics. Length will be determined by general surgery will make that decision in the next few days. Patient is complaining of generalized body pain from her "fibromyalgia". Patient remains afebrile 98 8 pulse of 60-70 blood pressure 118/55 White blood cells 12.1 calcium 7.2 wound cultures are positive Postop day 3 for her colostomy Postop day 4 for her initial debridement 07/06/2019 Vital signs are stable WBC is 13.2 which is stable, hemoglobin 10.4 which is stable Chemistry panel normal IV antibiotics a day # 7. Continue IV antibiotics. General surgery states that she is medically stable to be released to long-term care facility for wound management. Discharge planning is going to get this started on Monday. 07/07/2019 Temperature 98.3 pulse 66 blood pressure 122/65 Patient is using 2 L nasal cannula oxygen but I do not think she actually needs it. Sitting up in bed no respiratory distress Labs appear normal Patient getting IV Rocephin LTAC placement has been initiated Patient is complaining of some right-sided rib pain in the axilla. Lungs however are clear. Did order a portable chest x-ray Still complaining of some left hand pain where she had an IV previously. I ordered a K pad for this Patient is eating well, stoma is functioning well Addendum: Portable chest x-ray today when compared to previous film dated 06/30/2019, shows possible early edema. Will DC IV fluids and increase her Lasix to twice daily. Patient is not complaining of shortness of breath. She has the same complaint she had back on the 12th with right sided rib pain. 07/08/2019 Temperature 99.2 pulse 80 blood pressure 130/58 O2 sat 97% on room air Wound VAC to be changed either tomorrow or Monday. Patient is on her IV antibiotics for her postop wound culture.. Patient does not appear to be septic. If needed patient could go out on p.o. Keflex. Today is day # 9 IV antibiotics. Patient's labs appear stable. Discharge planning is working on placement - Time Time Spent with patient: 25-34 minutes
[2019-07-08] MEDS: ACETAMINOPHEN 325 MG TABLET PO PRN (16:25)
[2019-07-08] MEDS: ARIPIPRAZOLE 5 MG TABLET PO SCH (17:36)
[2019-07-08] MEDS: ATORVASTATIN CALCIUM 40 MG TABLET PO SCH (22:12)
[2019-07-09] MEDS: OXYCODONE HCL IR 5 MG TABLET PO SCH ×4 (01:41→18:27)
[2019-07-09] MEDS: TIZANIDINE HCL 4 MG TABLET PO SCH ×4 (01:41→18:27)
[2019-07-09] MEDS: KETOROLAC TROMETHAMINE INJ/PF 30 MG/1 ML SDV IV SCH ×4 (02:26→21:54)
[2019-07-09] MEDS: LEVOTHYROXINE SODIUM 0.05 MG TABLET PO SCH (05:27)
[2019-07-09] MEDS: HEPARIN SOD (PORCINE) 5,000 UNIT/ML 1 ML VIAL SUBCUT SCH ×3 (05:28→21:55)
[2019-07-09 08:13] LABS: ABSOLUTE BASOPHILS # (AUTO) 0.1 10^3/uL (0.0-0.2); ABSOLUTE EOSINOPHILS # (AUTO) 0.4 10^3/uL (0.0-0.6); ABSOLUTE LYMPHOCYTES (AUTO) 1.7 10^3/uL (0.5-4.7); ABSOLUTE MONOCYTES (AUTO) 0.7 10^3/uL (0.1-1.4); ABSOLUTE NEUT (AUTO) 5.8 10^3/uL (1.7-8.2); BASOPHILS % (AUTO) 1.2 % (0-2); EOSINOPHILS % (AUTO) 4.7 % (0-6); HEMOGLOBIN 10.2 g/dL (12.0-15.5); LYMPHOCYTES % (AUTO) 19.3 % (13-45); MEAN CORPUSCULAR HEMOGLOBIN 35.3 pg (27.0-33.4); MEAN CORPUSCULAR HGB CONC 36.6 g/dL (32.0-36.0); MEAN CORPUSCULAR VOLUME 97 fl (80-97); MONOCYTES % (AUTO) 8.1 % (3-13); PLATELET COUNT 424 10^3/uL (150-450); RED CELL DISTRIBUTION WIDTH 13.8 % (11.5-14.0); SEGMENTED NEUTROPHILS % (AUTO) 66.7 % (42-78); TOTAL CELLS COUNTED % (AUTO) 100 %; WHITE BLOOD COUNT 8.7 10^3/uL (4.0-10.5)
[2019-07-09 08:39] LABS: ALBUMIN 2.1 g/dL (3.5-5.0); ALKALINE PHOSPHATASE 47 U/L (38-126); ASPARTATE AMINO TRANSFERASE 19 U/L (14-36); BILIRUBIN,TOTAL 0.3 mg/dL (0.2-1.3); BLOOD UREA NITROGEN 8 mg/dL (7-20); CALCIUM 7.9 mg/dL (8.4-10.2); GLUCOSE 99 mg/dL (75-110); POTASSIUM 3.8 mmol/L (3.6-5.0); TOTAL PROTEIN 4.4 g/dL (6.3-8.2)
[2019-07-09 08:44] LABS: CARBON DIOXIDE 33 mmol/L (22-30); CHLORIDE 104 mmol/L (98-107)
[2019-07-09 08:46] LABS: ANION GAP 0 (5-19)
--- NOTE | 2019-07-09 09:03 | PDOC PROGRESS REPORT ---
Subjective Progress Note for:: 07/09/19 Subjective:: 69 year old female with a complex medical history the details of which she is unable to provide at this time. Based on her medication list she likely has hypothyroidism, depression, ulcerative colitis, COPD and she reports a bulging heart valve with hypertension but she is on multiple medications suggesting possible heart failure. She is being taken to the operating room immediately. She has a perianal abscesses affecting both buttock. She qualifies for sepsis with low blood pressure, fever, altered mental status and acute kidney injury. 07/01/19 Patient is taken to the OR last night, intraoperative findings are extensive soft tissue necrosis and infection necrotizing fasciitis of the gluteus muscles of the buttock with exposed rectum and exposed coccyx bone. Large amount of skin on bilateral buttocks subcutaneous tissue and fat was removed during the surgery. As per Dr. Trinidad patient may need a colostomy in the next 24 to 48 hours for fecal diversion. Patient is complaining of pain patient is on IV Dilaudid because of the blood pressures are running low nurses are with heading pain medications. Once the blood pressure is improved we can to resume PRN IV pain medications. Presently she is on Ringer lactate at 150 cc/h. Patient blood pressure is 89/51. Plan is to increase the IV fluids to 250 cc/h. Condition is critical at this time. 07/09/19 69-year-old female admitted with perirectal abscess and necrotizing fasciitis, status post debridement of necrotizing soft tissue infection on 07/01/2019 she also had a laparoscopic colostomy on 07/02/2019. pt has a wound VAC surgery is managing the wound VAC. For placement. Comfortably in the bed communicating well. Not in distress. Reason For Visit: SEPSIS,PERIANAL ABSCESSES WITH POSSIBLE FISTULA Physical Exam Vital Signs: Temp Pulse Resp BP Pulse Ox 98.6 F 68 16 118/56 L 100 07/09/19 07:41 07/09/19 07:41 07/09/19 07:41 07/09/19 07:41 07/09/19 07:41 Intake & Output 07/08/19 07/09/19 07/10/19 06:59 06:59 06:59 Intake Total 1716 1116 Output Total 3271 0065 Balance -8778 -0405 Weight 92.9 kg 92.3 kg General appearance: PRESENT: no acute distress, well-developed Head exam: PRESENT: atraumatic Eye exam: PRESENT: PERRLA Ear exam: PRESENT: normal external ear exam Mouth exam: PRESENT: moist, tongue midline Teeth exam: PRESENT: poor dentation Neck exam: ABSENT: carotid bruit, JVD, lymphadenopathy, thyromegaly Respiratory exam: PRESENT: decreased breath sounds Cardiovascular exam: PRESENT: RRR. ABSENT: diastolic murmur, rubs, systolic murmur GI/Abdominal exam: PRESENT: normal bowel sounds, soft, other - Colostomy present.. ABSENT: distended, guarding, mass, organolmegaly, rebound, tenderness Rectal exam: PRESENT: deferred Extremities exam: PRESENT: full ROM. ABSENT: calf tenderness, clubbing, pedal edema Neurological exam: PRESENT: alert, awake, oriented to person, oriented to place, oriented to time, oriented to situation, CN II-XII grossly intact. ABSENT: motor sensory deficit Psychiatric exam: PRESENT: appropriate affect, normal mood. ABSENT: homicidal ideation, suicidal ideation Results Laboratory Results: 07/09/19 08:04 07/09/19 08:04 07/09/19 07/09/19 08:04 08:04 WBC 8.7 RBC 2.90 L Hgb 10.2 L Hct 28.0 L MCV 97 MCH 35.3 H MCHC 36.6 H RDW 13.8 Plt Count 424 Seg Neutrophils % 66.7 Sodium 136.9 L Potassium 3.8 Chloride 104 Carbon Dioxide 33 H Anion Gap 0 L BUN 8 Creatinine 0.63 Est GFR ( Amer) > 60 Glucose 99 Calcium 7.9 L Magnesium 1.9 Total Bilirubin 0.3 AST 19 Alkaline Phosphatase 47 Total Protein 4.4 L Albumin 2.1 L Impressions: Thoracic Spine X-Ray 06/30/19 16:30 IMPRESSION: No acute fracture. Ribs w/Chest X-Ray 06/30/19 16:31 IMPRESSION: NO PNEUMOTHORAX. NO DISPLACED RIB FRACTURES. Abdomen/Pelvis CT 06/30/19 21:01 IMPRESSION: 1. 2.5 cm lesion of the upper pole of the left kidney. Differential diagnosis includes neoplasm. Recommend dynamic contrast CT or MRI of the kidneys. 2. Soft tissue emphysema of subcutaneous bilateral buttocks and perineum, left more than right. Soft tissue opacity at the pelvic floor may indicate phlegmon or rectal prolapse. No significant drainable fluid collection or abscess. Moderate inguinal lymphadenopathy. Differential etiologies include iatrogenic and advanced /necrotizing infectious. 3. Colonic stool retention. Orally administered contrast is seen to the level of the mid small bowel. 2.6 cm diameter small bowel with air-fluid levels indicative of ileus or low-grade obstruction. Assessment and Plan - Diagnosis (1) Sepsis Qualifiers: Sepsis type: sepsis due to unspecified organism Sepsis acute organ dysfunction status: with acute organ dysfunction Severe sepsis acute organ dysfunction type: acute renal failure Acute renal failure type: with acute tubular necrosis Severe sepsis shock status: without septic shock Qualified Code(s): A41.9 - Sepsis, unspecified organism; R65.20 - Severe sepsis without septic shock; N17.0 - Acute kidney failure with tubular necrosis Is this a current diagnosis for this admission?: Yes Plan: 07/01/2019 Sepsis secondary to the soft tissue infection in the perianal/buttock areas. It is bilateral. The patient is being taken to the OR urgently. IV antibiotics with IV fluids and antipyretics. 07/01/2019-patient went to the OR for debridement of the necrotic tissue, patient is presently on IV Zosyn. Dr. Trinidad thinks patient may need a colostomy in the next 24 to 48 hours. wound Cultures and blood cultures are pending. 07/09/2019-patient admitted with perirectal abscess with necrotizing fasciitis status post debridement has a wound VAC and status post colostomy for diversion. Wound cultures from 413 growing E. coli, Peptostreptococcus, strep anginosus, Prevotella species. Cultures are negative. Febrile. Presently on IV Rocephin. (2) Rectal fistula Is this a current diagnosis for this admission?: Yes Plan: 07/01/2019 The patient reports passing hard bowel movement and in fact these issues began after that. The patient is noted to have a likely fistula by CT scan. This certainly could have seeded the soft tissue infections. Surgical intervention with antibiotic therapy. 07/09/2019-patient came in with perirectal abscess and rectal fistula status post surgery with wound VAC. She has divergent colostomy. (3) Left buttock abscess Is this a current diagnosis for this admission?: Yes (4) Abscess of right buttock Is this a current diagnosis for this admission?: Yes (5) Hypertension Qualifiers: Hypertension type: essential hypertension Qualified Code(s): I10 - Essential (primary) hypertension Is this a current diagnosis for this admission?: No Plan: 07/01/2019 Multiple cardiac medications on the patient's computer file. Awaiting pharmacy to reconcile medications. The patient's blood pressure was marginal and she in fact may not require any antihypertensives for several days. 07/01/2019-patient has history of chronic essential hypertension now patient is persistently hypotensive latest blood pressure is 89/61. Ringer lactate solution rate is increased to 250 cc/h. 07/09/2019 blood pressure today is 117/52. Stable. Plan is to continue the present management. (6) Hypocalcemia Is this a current diagnosis for this admission?: Yes Plan: 07/01/2019-serum calcium level today 7.0 and albumin is 3.0 yesterday. Corrected serum calcium may be around 7.8. Plan is to repeat the labs tomorrow including serum albumin. 07/09/19-serum calcium is 7.9 and serum albumin is 2.1. Corrected serum calcium is within normal limits. - Plan Summary Summary: 07/02/2019 This morning her vital signs are stable temperature 98.5 pulse 55 blood pressure 117/64 O2 sat was 98% on 1-1/2 L Patient's pulse and blood pressure both have been running low Last night patient went to the OR where debridement of the buttock necrotizing soft tissue infection was performed. White count on admission was 19.2 it is gone down to 13.2 IV fluids have been running at 250/h due to hypotension Patient is currently on IV Zosyn Patient went back to the OR today for a laparoscopic colostomy July 03, 2019 Patient's labs continue to improve on admission her white blood cell count was 19.2, yesterday it was 13.2 and today it is 9.7 hemoglobin is stable at 10 Chemistry shows a potassium has come up to 4.1 Calcium and albumin remain low, will be supplemented Wound culture is positive x2, appears to be sensitive to meropenem Patient remains afebrile with good blood pressure and pulse. Will decrease IV fluids to KVO Surgery sees patient daily for her wound care and colostomy site. With the help of 2 nurses I have inspected patient's wound, it appears to be dry and clean, ever rather large in diameter and depth 07/04/2019 Temperature 98.6, patient has been afebrile for 72 hours Pulse 60-70 blood pressure 117/51 White count today is gone up slightly to 12.1 from 9.7 yesterday, probably not significant Corrected calcium level is 8.8. This morning patient was so heavily sedated she was falling asleep while talking to me. I have decreased her Dilaudid from 2 mg down to 1 mg I think at time of discharge patient will benefit from an LTAC placement. I think her wound care will be too involved and extensive for detention facility. I have asked nursing to start this process. I have consulted dietary for her nutritional needs for wound healing. 07/05/2019 Today have tried to resume most of her home medicines, those for depression as well as chronic pain, fibromyalgia. DC'd her IV Dilaudid, instead put her back on her extended release OxyContin Switch her IV antibiotic from Zosyn to Rocephin. She will undoubtably be discharged at some time in the future on IV antibiotics. Length will be determined by general surgery will make that decision in the next few days. Patient is complaining of generalized body pain from her "fibromyalgia". Patient remains afebrile 98 8 pulse of 60-70 blood pressure 118/55 White blood cells 12.1 calcium 7.2 wound cultures are positive Postop day 3 for her colostomy Postop day 4 for her initial debridement 07/06/2019 Vital signs are stable WBC is 13.2 which is stable, hemoglobin 10.4 which is stable Chemistry panel normal IV antibiotics a day # 7. Continue IV antibiotics. General surgery states that she is medically stable to be released to long-term care facility for wound management. Discharge planning is going to get this started on Monday. 07/07/2019 Temperature 98.3 pulse 66 blood pressure 122/65 Patient is using 2 L nasal cannula oxygen but I do not think she actually needs it. Sitting up in bed no respiratory distress Labs appear normal Patient getting IV Rocephin LTAC placement has been initiated Patient is complaining of some right-sided rib pain in the axilla. Lungs however are clear. Did order a portable chest x-ray Still complaining of some left hand pain where she had an IV previously. I ordered a K pad for this Patient is eating well, stoma is functioning well Addendum: Portable chest x-ray today when compared to previous film dated 06/30/2019, shows possible early edema. Will DC IV fluids and increase her Lasix to twice daily. Patient is not complaining of shortness of breath. She has the same complaint she had back on the 12th with right sided rib pain. 07/08/2019 Temperature 99.2 pulse 80 blood pressure 130/58 O2 sat 97% on room air Wound VAC to be changed either tomorrow or Monday. Patient is on her IV antibiotics for her postop wound culture.. Patient does not appear to be septic. If needed patient could go out on p.o. Keflex. Today is day # 9 IV antibiotics. Patient's labs appear stable. Discharge planning is working on placement
[2019-07-09] MEDS: FUROSEMIDE 20 MG TABLET PO SCH ×2 (09:08→18:27)
[2019-07-09] MEDS: GABAPENTIN 300 MG CAPSULE PO SCH ×4 (09:08→21:54)
[2019-07-09] MEDS: CITALOPRAM HYDROBROMIDE 20 MG TABLET PO SCH (09:08)
[2019-07-09] MEDS: CARVEDILOL 6.25 MG TABLET PO SCH ×2 (09:08→21:55)
[2019-07-09] MEDS: CEFTRIAXONE 1 GM/D5W RTU 1 GM/50 ML RTUPB IV SCH ×2 (09:08→21:55)
[2019-07-09] MEDS: SPIRONOLACTONE 25 MG TABLET PO SCH (09:08)
--- NOTE | 2019-07-09 15:19 | PDOC PROGRESS REPORT ---
Subjective Progress Note for:: 07/09/19 Subjective:: No complaints Reason For Visit: SEPSIS,PERIANAL ABSCESSES WITH POSSIBLE FISTULA Physical Exam Vital Signs: Temp Pulse Resp BP Pulse Ox 98.5 F 67 18 135/61 H 98 07/09/19 11:27 07/09/19 11:27 07/09/19 11:27 07/09/19 11:27 07/09/19 11:27 Intake & Output 07/08/19 07/09/19 07/10/19 06:59 06:59 06:59 Intake Total 1716 1116 701 Output Total 3000 3775 Balance -9759 -9903 701 Weight 92.9 kg 92.3 kg 92.3 kg Skin exam: PRESENT: other - Large sacral wound examined. Wound VAC removed. It appears very clean with no necrotic tissue. Wound VAC replaced. Results Laboratory Results: 07/09/19 08:04 07/09/19 08:04 07/09/19 07/09/19 08:04 08:04 WBC 8.7 RBC 2.90 L Hgb 10.2 L Hct 28.0 L MCV 97 MCH 35.3 H MCHC 36.6 H RDW 13.8 Plt Count 424 Seg Neutrophils % 66.7 Sodium 136.9 L Potassium 3.8 Chloride 104 Carbon Dioxide 33 H Anion Gap 0 L BUN 8 Creatinine 0.63 Est GFR ( Amer) > 60 Glucose 99 Calcium 7.9 L Magnesium 1.9 Total Bilirubin 0.3 AST 19 Alkaline Phosphatase 47 Total Protein 4.4 L Albumin 2.1 L Impressions: Thoracic Spine X-Ray 06/30/19 16:30 IMPRESSION: No acute fracture. Ribs w/Chest X-Ray 06/30/19 16:31 IMPRESSION: NO PNEUMOTHORAX. NO DISPLACED RIB FRACTURES. Abdomen/Pelvis CT 06/30/19 21:01 IMPRESSION: 1. 2.5 cm lesion of the upper pole of the left kidney. Differential diagnosis includes neoplasm. Recommend dynamic contrast CT or MRI of the kidneys. 2. Soft tissue emphysema of subcutaneous bilateral buttocks and perineum, left more than right. Soft tissue opacity at the pelvic floor may indicate phlegmon or rectal prolapse. No significant drainable fluid collection or abscess. Moderate inguinal lymphadenopathy. Differential etiologies include iatrogenic and advanced /necrotizing infectious. 3. Colonic stool retention. Orally administered contrast is seen to the level of the mid small bowel. 2.6 cm diameter small bowel with air-fluid levels indicative of ileus or low-grade obstruction. Assessment & Plan - Diagnosis (1) Soft tissue infection Is this a current diagnosis for this admission?: Yes Plan: That is post excisional debridement. Wound VAC therapy. Wound looks clean. Continue wound VAC therapy.
[2019-07-09] MEDS: ARIPIPRAZOLE 5 MG TABLET PO SCH (18:27)
[2019-07-09] MEDS: ATORVASTATIN CALCIUM 40 MG TABLET PO SCH (21:54)
[2019-07-10] MEDS: TIZANIDINE HCL 4 MG TABLET PO SCH ×3 (00:30→13:32)
[2019-07-10] MEDS: OXYCODONE HCL IR 5 MG TABLET PO SCH ×4 (00:30→13:33)
[2019-07-10] MEDS: KETOROLAC TROMETHAMINE INJ/PF 30 MG/1 ML SDV IV SCH ×2 (03:23→09:00)
[2019-07-10] MEDS: LEVOTHYROXINE SODIUM 0.05 MG TABLET PO SCH (05:24)
[2019-07-10] MEDS: HEPARIN SOD (PORCINE) 5,000 UNIT/ML 1 ML VIAL SUBCUT SCH ×2 (05:24→13:33)
[2019-07-10 08:12] VITALS: BP 126/62
--- NOTE | 2019-07-10 08:53 | PDOC PROGRESS REPORT ---
Subjective Progress Note for:: 07/10/19 Subjective:: 69 year old female with a complex medical history the details of which she is unable to provide at this time. Based on her medication list she likely has hypothyroidism, depression, ulcerative colitis, COPD and she reports a bulging heart valve with hypertension but she is on multiple medications suggesting possible heart failure. She is being taken to the operating room immediately. She has a perianal abscesses affecting both buttock. She qualifies for sepsis with low blood pressure, fever, altered mental status and acute kidney injury. 07/01/19 Patient is taken to the OR last night, intraoperative findings are extensive soft tissue necrosis and infection necrotizing fasciitis of the gluteus muscles of the buttock with exposed rectum and exposed coccyx bone. Large amount of skin on bilateral buttocks subcutaneous tissue and fat was removed during the surgery. As per Dr. Trinidad patient may need a colostomy in the next 24 to 48 hours for fecal diversion. Patient is complaining of pain patient is on IV Dilaudid because of the blood pressures are running low nurses are with heading pain medications. Once the blood pressure is improved we can to resume PRN IV pain medications. Presently she is on Ringer lactate at 150 cc/h. Patient blood pressure is 89/51. Plan is to increase the IV fluids to 250 cc/h. Condition is critical at this time. 07/09/19 69-year-old female admitted with perirectal abscess and necrotizing fasciitis, status post debridement of necrotizing soft tissue infection on 07/01/2019 she also had a laparoscopic colostomy on 07/02/2019. pt has a wound VAC surgery is managing the wound VAC. For placement. Comfortably in the bed communicating well. Not in distress. 07/[id number]-bqyi-old female admitted with perirectal abscess, necrotizing fasciitis and rectal fistula. Status post debridement of the necrotic tissue was done wound VAC is in place. Still has a wound VAC as per Dr. Lehman wound is clean. Patient may be ready for discharge in 2 to 3 days. And is presently on Toradol and Aloxi every 6 hours she is complaining of pain scale of 10 / 10. To increase the dose of OxyContin to every 4 hours PRN. Reason For Visit: SEPSIS,PERIANAL ABSCESSES WITH POSSIBLE FISTULA Physical Exam Vital Signs: Temp Pulse Resp BP Pulse Ox 98.7 F 71 17 126/62 H 99 07/10/19 07:54 07/10/19 07:54 07/10/19 07:54 07/10/19 07:54 07/10/19 07:54 Intake & Output 07/09/19 07/10/19 07/11/19 06:59 06:59 06:59 Intake Total 1116 1381 Output Total 3775 4300 Balance -0259 -2913 Weight 92.3 kg 91.7 kg General appearance: PRESENT: no acute distress, mild distress, well-developed Head exam: PRESENT: atraumatic Eye exam: PRESENT: PERRLA Mouth exam: PRESENT: moist, tongue midline Teeth exam: PRESENT: poor dentation Neck exam: ABSENT: carotid bruit, JVD, lymphadenopathy, thyromegaly Respiratory exam: PRESENT: clear to auscultation florentin. ABSENT: rales, rhonchi, wheezes Cardiovascular exam: PRESENT: RRR. ABSENT: diastolic murmur, rubs, systolic murmur GI/Abdominal exam: PRESENT: normal bowel sounds, soft. ABSENT: distended, guarding, mass, organolmegaly, rebound, tenderness Rectal exam: PRESENT: deferred Neurological exam: PRESENT: alert, awake, oriented to person, oriented to place, oriented to time, oriented to situation, CN II-XII grossly intact. ABSENT: motor sensory deficit Psychiatric exam: PRESENT: appropriate affect, normal mood. ABSENT: homicidal ideation, suicidal ideation Results Laboratory Results: 07/09/19 08:04 07/09/19 08:04 Impressions: Thoracic Spine X-Ray 06/30/19 16:30 IMPRESSION: No acute fracture. Ribs w/Chest X-Ray 06/30/19 16:31 IMPRESSION: NO PNEUMOTHORAX. NO DISPLACED RIB FRACTURES. Abdomen/Pelvis CT 06/30/19 21:01 IMPRESSION: 1. 2.5 cm lesion of the upper pole of the left kidney. Differential diagnosis includes neoplasm. Recommend dynamic contrast CT or MRI of the kidneys. 2. Soft tissue emphysema of subcutaneous bilateral buttocks and perineum, left more than right. Soft tissue opacity at the pelvic floor may indicate phlegmon or rectal prolapse. No significant drainable fluid collection or abscess. Moderate inguinal lymphadenopathy. Differential etiologies include iatrogenic and advanced /necrotizing infectious. 3. Colonic stool retention. Orally administered contrast is seen to the level of the mid small bowel. 2.6 cm diameter small bowel with air-fluid levels indicative of ileus or low-grade obstruction. Assessment and Plan - Diagnosis (1) Sepsis Qualifiers: Sepsis type: sepsis due to unspecified organism Sepsis acute organ dysfunction status: with acute organ dysfunction Severe sepsis acute organ dysfunction type: acute renal failure Acute renal failure type: with acute tubular necrosis Severe sepsis shock status: without septic shock Qualified Code(s): A41.9 - Sepsis, unspecified organism; R65.20 - Severe sepsis without septic shock; N17.0 - Acute kidney failure with tubular necrosis Is this a current diagnosis for this admission?: Yes Plan: 07/01/2019 Sepsis secondary to the soft tissue infection in the perianal/buttock areas. It is bilateral. The patient is being taken to the OR urgently. IV antibiotics with IV fluids and antipyretics. 07/01/2019-patient went to the OR for debridement of the necrotic tissue, patient is presently on IV Zosyn. Dr. Trinidad thinks patient may need a colostomy in the next 24 to 48 hours. wound Cultures and blood cultures are pending. 07/09/2019-patient admitted with perirectal abscess with necrotizing fasciitis status post debridement has a wound VAC and status post colostomy for diversion. Wound cultures from 413 growing E. coli, Peptostreptococcus, strep anginosus, Prevotella species. Cultures are negative. Febrile. Presently on IV Rocephin. 07/10/19-wound is clean wound VAC is in place. Plan is to continue IV Rocephin at this time and patient may able to go to long-term care facility in the next 48 to 72 hours as per surgical team. (2) Rectal fistula Is this a current diagnosis for this admission?: Yes (3) Left buttock abscess Is this a current diagnosis for this admission?: Yes (4) Abscess of right buttock Is this a current diagnosis for this admission?: Yes (5) Hypertension Qualifiers: Hypertension type: essential hypertension Qualified Code(s): I10 - Essential (primary) hypertension Is this a current diagnosis for this admission?: No Plan: 07/01/2019 Multiple cardiac medications on the patient's computer file. Awaiting pharmacy to reconcile medications. The patient's blood pressure was marginal and she in fact may not require any antihypertensives for several days. 07/01/2019-patient has history of chronic essential hypertension now patient is persistently hypotensive latest blood pressure is 89/61. Ringer lactate solution rate is increased to 250 cc/h. 07/09/2019 blood pressure today is 117/52. Stable. Plan is to continue the present management. 07/10/2019-blood pressure today is 120/60. Afebrile. Stable. (6) Hypocalcemia Is this a current diagnosis for this admission?: Yes Plan: 07/01/2019-serum calcium level today 7.0 and albumin is 3.0 yesterday. Corrected serum calcium may be around 7.8. Plan is to repeat the labs tomorrow including serum albumin. 07/09/19-serum calcium is 7.9 and serum albumin is 2.1. Corrected serum calcium is within normal limits. - Plan Summary Summary: 07/02/2019 This morning her vital signs are stable temperature 98.5 pulse 55 blood pressure 117/64 O2 sat was 98% on 1-1/2 L Patient's pulse and blood pressure both have been running low Last night patient went to the OR where debridement of the buttock necrotizing soft tissue infection was performed. White count on admission was 19.2 it is gone down to 13.2 IV fluids have been running at 250/h due to hypotension Patient is currently on IV Zosyn Patient went back to the OR today for a laparoscopic colostomy July 03, 2019 Patient's labs continue to improve on admission her white blood cell count was 19.2, yesterday it was 13.2 and today it is 9.7 hemoglobin is stable at 10 Chemistry shows a potassium has come up to 4.1 Calcium and albumin remain low, will be supplemented Wound culture is positive x2, appears to be sensitive to meropenem Patient remains afebrile with good blood pressure and pulse. Will decrease IV fluids to KVO Surgery sees patient daily for her wound care and colostomy site. With the help of 2 nurses I have inspected patient's wound, it appears to be dry and clean, ever rather large in diameter and depth 07/04/2019 Temperature 98.6, patient has been afebrile for 72 hours Pulse 60-70 blood pressure 117/51 White count today is gone up slightly to 12.1 from 9.7 yesterday, probably not significant Corrected calcium level is 8.8. This morning patient was so heavily sedated she was falling asleep while talking to me. I have decreased her Dilaudid from 2 mg down to 1 mg I think at time of discharge patient will benefit from an LTAC placement. I think her wound care will be too involved and extensive for prison facility. I have asked nursing to start this process. I have consulted dietary for her nutritional needs for wound healing. 07/05/2019 Today have tried to resume most of her home medicines, those for depression as well as chronic pain, fibromyalgia. DC'd her IV Dilaudid, instead put her back on her extended release OxyContin Switch her IV antibiotic from Zosyn to Rocephin. She will undoubtably be discharged at some time in the future on IV antibiotics. Length will be determined by general surgery will make that decision in the next few days. Patient is complaining of generalized body pain from her "fibromyalgia". Patient remains afebrile 98 8 pulse of 60-70 blood pressure 118/55 White blood cells 12.1 calcium 7.2 wound cultures are positive Postop day 3 for her colostomy Postop day 4 for her initial debridement 07/06/2019 Vital signs are stable WBC is 13.2 which is stable, hemoglobin 10.4 which is stable Chemistry panel normal IV antibiotics a day # 7. Continue IV antibiotics. General surgery states that she is medically stable to be released to long-term care facility for wound management. Discharge planning is going to get this started on Monday. 07/07/2019 Temperature 98.3 pulse 66 blood pressure 122/65 Patient is using 2 L nasal cannula oxygen but I do not think she actually needs it. Sitting up in bed no respiratory distress Labs appear normal Patient getting IV Rocephin LTAC placement has been initiated Patient is complaining of some right-sided rib pain in the axilla. Lungs however are clear. Did order a portable chest x-ray Still complaining of some left hand pain where she had an IV previously. I ordered a K pad for this Patient is eating well, stoma is functioning well Addendum: Portable chest x-ray today when compared to previous film dated 06/30/2019, shows possible early edema. Will DC IV fluids and increase her Lasix to twice daily. Patient is not complaining of shortness of breath. She has the same complaint she had back on the with right sided rib pain. 07/08/2019 Temperature 99.2 pulse 80 blood pressure 130/58 O2 sat 97% on room air Wound VAC to be changed either tomorrow or Monday. Patient is on her IV antibiotics for her postop wound culture.. Patient does not appear to be septic. If needed patient could go out on p.o. Keflex. Today is day # 9 IV antibiotics. Patient's labs appear stable. Discharge planning is working on placement
[2019-07-10] MEDS: CITALOPRAM HYDROBROMIDE 20 MG TABLET PO SCH (08:59)
[2019-07-10] MEDS: FUROSEMIDE 20 MG TABLET PO SCH (08:59)
[2019-07-10] MEDS: SPIRONOLACTONE 25 MG TABLET PO SCH (08:59)
[2019-07-10] MEDS: CARVEDILOL 6.25 MG TABLET PO SCH (08:59)
[2019-07-10] MEDS: GABAPENTIN 300 MG CAPSULE PO SCH ×2 (08:59→13:33)
[2019-07-10] MEDS: CEFTRIAXONE 1 GM/D5W RTU 1 GM/50 ML RTUPB IV SCH (09:00)
--- NOTE | 2019-07-10 09:15 | PDOC PROGRESS REPORT ---
Subjective Progress Note for:: 07/10/19 Subjective:: feels ok difficulty getting out of bed on her own roberto reg diet \\wound vac changed yesterday reported as "looks good" no further debridement. Reason For Visit: SEPSIS,PERIANAL ABSCESSES WITH POSSIBLE FISTULA Physical Exam Vital Signs: Temp Pulse Resp BP Pulse Ox 98.7 F 71 17 126/62 H 97 07/10/19 07:54 07/10/19 07:54 07/10/19 07:54 07/10/19 07:54 07/10/19 09:02 Intake & Output 07/09/19 07/10/19 07/11/19 06:59 06:59 06:59 Intake Total 1116 1381 Output Total 3773 8743 Balance -5620 -1676 Weight 92.3 kg 91.7 kg General appearance: PRESENT: no acute distress Head exam: PRESENT: normocephalic Eye exam: PRESENT: EOMI Mouth exam: PRESENT: moist Neck exam: PRESENT: full ROM Respiratory exam: PRESENT: clear to auscultation florentin Cardiovascular exam: PRESENT: RRR Pulses: PRESENT: normal femoral pulses, normal dorsalis pedis pul Vascular exam: PRESENT: normal capillary refill GI/Abdominal exam: PRESENT: soft Gentrourinary exam: PRESENT: indwelling catheter Extremities exam: PRESENT: full ROM Neurological exam: PRESENT: alert, awake, oriented to person Psychiatric exam: PRESENT: agitated, depressed Skin exam: PRESENT: dry Results Laboratory Results: 07/09/19 08:04 07/09/19 08:04 Impressions: Thoracic Spine X-Ray 06/30/19 16:30 IMPRESSION: No acute fracture. Ribs w/Chest X-Ray 06/30/19 16:31 IMPRESSION: NO PNEUMOTHORAX. NO DISPLACED RIB FRACTURES. Abdomen/Pelvis CT 06/30/19 21:01 IMPRESSION: 1. 2.5 cm lesion of the upper pole of the left kidney. Differential diagnosis includes neoplasm. Recommend dynamic contrast CT or MRI of the kidneys. 2. Soft tissue emphysema of subcutaneous bilateral buttocks and perineum, left more than right. Soft tissue opacity at the pelvic floor may indicate phlegmon or rectal prolapse. No significant drainable fluid collection or abscess. Moderate inguinal lymphadenopathy. Differential etiologies include iatrogenic and advanced /necrotizing infectious. 3. Colonic stool retention. Orally administered contrast is seen to the level of the mid small bowel. 2.6 cm diameter small bowel with air-fluid levels indicative of ileus or low-grade obstruction. Assessment & Plan - Diagnosis (1) Left buttock abscess Is this a current diagnosis for this admission?: Yes (2) Abscess of right buttock Is this a current diagnosis for this admission?: Yes (3) Rectal fistula Is this a current diagnosis for this admission?: Yes - Plan Summary Plan Summary: s/p extensive perirectal debridement now with colostomy wound vac roberto reg diet wbc wnl plan ok from surgery standpt for dc to [facility].
--- NOTE | 2019-07-10 13:06 | PDOC TRANSFER SUMMARY ---
General Admission Date/PCP: 07/01/19 02:34 BARBIE READ DO Resuscitation Status: Full Code - Transfer Diagnosis (1) Sepsis Is this a current diagnosis for this admission?: Yes (2) Rectal fistula Is this a current diagnosis for this admission?: Yes (3) Left buttock abscess Is this a current diagnosis for this admission?: Yes (4) Abscess of right buttock Is this a current diagnosis for this admission?: Yes (5) Hypertension Is this a current diagnosis for this admission?: No (6) Hypocalcemia Is this a current diagnosis for this admission?: Yes - Transfer Medications Home Medications: Carvedilol [Coreg] 6.25 mg PO BID 12/03/13 Gabapentin [Neurontin 300 mg Capsule] 600 mg PO QID 12/03/13 Levothyroxine Sodium 50 mcg PO Q6AM 12/03/13 Potassium Chloride 20 meq PO DAILY 12/03/13 Spironolactone 25 mg PO DAILY 12/03/13 Citalopram Hydrobromide [Celexa 20 mg Tablet] 20 mg PO DAILY 12/25/13 Atorvastatin Calcium 40 mg PO DAILY 01/11/17 Furosemide 20 mg PO DAILY 01/11/17 Alendronate Sodium 70 mg PO NAJERA@1000 07/01/19 Aripiprazole [Abilify 5 mg Tablet] 5 mg PO QPM 07/01/19 Diazepam [Valium 5 mg Tablet] 5 mg PO Q8HP PRN 07/01/19 Tizanidine HCl [Zanaflex 4 mg Tablet] 4 mg PO QID 07/01/19 Oxycodone HCl [Oxy-Ir 5 mg Tablet] 10 mg PO QID 07/05/19 Transfer Medications: Current Medications Acetaminophen (Tylenol 325 Mg Tablet) 650 mg PO Q4HP PRN PRN Reason: FOR PAIN OR TEMP Stop: 07/31/19 02:16 Last Admin: 07/08/19 16:25 Dose: 650 mg Documented by: Al Hydrox/Mg Hydrox/Simethicone (Maalox Plus Susp 30 Udcup) 30 ml PO Q6HP PRN PRN Reason: HEARTBURN Stop: 07/31/19 02:16 Aripiprazole (Abilify 5 Mg Tablet) 5 mg PO QPM [facility] Stop: 08/04/19 17:59 Last Admin: 07/09/19 18:27 Dose: 5 mg Documented by: Atorvastatin Calcium (Lipitor 40 Mg Tablet) 40 mg PO QHS [facility] Stop: 08/04/19 21:59 Last Admin: 07/09/19 21:54 Dose: 40 mg Documented by: Carvedilol (Coreg 6.25 Mg Tablet) 6.25 mg PO Q12 [facility] Stop: 07/31/19 09:59 Last Admin: 07/10/19 08:59 Dose: 6.25 mg Documented by: Citalopram Hydrobromide (Celexa 20 Mg Tablet) 20 mg PO DAILY [facility] Stop: 07/31/19 09:59 Last Admin: 07/10/19 08:59 Dose: 20 mg Documented by: Dextrose (Dextrose Inj 50% Syringe (25 Gm/50 Ml)) 12.5 gm IV PRN PRN; Protocol PRN Reason: FOR BG 50-69 IN ALERT PATIENT Stop: 08/01/19 07:46 Dextrose (Dextrose Inj 50% Syringe (25 Gm/50 Ml)) 25 gm IV PRN PRN; Protocol PRN Reason: See Label Comments Stop: 08/01/19 07:46 Furosemide (Lasix 20 Mg Tablet) 20 mg PO BID [facility] Stop: 08/06/19 17:59 Last Admin: 07/10/19 08:59 Dose: 20 mg Documented by: Gabapentin (Neurontin 300 Mg Capsule) 600 mg PO QID [facility] Stop: 08/04/19 13:59 Last Admin: 07/10/19 08:59 Dose: 600 mg Documented by: Glucagon (Glucagen Inj 1 Mg Vial) 1 mg SUBCUT PRN PRN; Protocol PRN Reason: Evaluate for BG < 70 Stop: 08/01/19 07:46 Glucose (Glutose 40% Gel 15 Gm Tube) 15 gm PO PRN PRN; Protocol PRN Reason: For BG 50-69 in Alert Patient Stop: 08/01/19 07:46 Glucose (Glutose 40% Gel 15 Gm Tube) 30 gm PO PRN PRN; Protocol PRN Reason: FOR BG < 50 IN ALERT PATIENT Stop: 08/01/19 07:46 Heparin Sodium (Porcine) (Heparin Inj 5,000 Units/Ml 1 Ml Vial) 5,000 unit NAJERA BCUT Q8 [facility] Stop: 07/31/19 13:59 Last Admin: 07/10/19 05:24 Dose: 5,000 unit Documented by: Ceftriaxone Sodium/Dextrose (Rocephin Rtu 1 Gm/D5w 50 Ml Premix) 1 gm in 50 mls @ 100 mls/hr IV Q12 [facility] Stop: 07/12/19 09:59 Last Infusion: 07/10/19 09:54 Dose: Infused Documented by: Ketorolac Tromethamine (Toradol Inj/Pf 30 Mg/1 Ml Sdv) 15 mg IV Q6A [facility] Stop: 07/12/19 02:59 Last Admin: 07/10/19 09:00 Dose: 15 mg Documented by: Levothyroxine Sodium (Synthroid 0.05 Mg Tablet) 0.05 mg PO Q6AM [facility] Stop: 07/31/19 05:59 Last Admin: 07/10/19 05:24 Dose: 0.05 mg Documented by: Magnesium Hydroxide (Milk Of Magnesia 30 Ml Udcup) 30 ml PO HSP PRN PRN Reason: FOR CONSTIPATION Stop: 07/31/19 02:16 Ondansetron HCl (Zofran Inj/Pf 4 Mg/2 Ml Sdv) 4 mg IV Q4HP PRN PRN Reason: FOR NAUSEA/VOMITING Stop: 07/31/19 02:16 Last Admin: 07/05/19 09:57 Dose: 4 mg Documented by: Oxycodone HCl (Oxy-Ir 5 Mg Tablet) 10 mg PO Q4 [facility] Stop: 07/17/19 09:59 Last Admin: 07/10/19 09:02 Dose: 10 mg Documented by: Sodium Chloride (Saline Flush 2.5 Ml Monoject Prefil Syrin) 2.5 ml IV Q8 [facility] Stop: 07/31/19 05:59 Last Admin: 07/10/19 05:24 Dose: 2.5 ml Documented by: Spironolactone (Aldactone 25 Mg Tablet) 25 mg PO DAILY [facility] Stop: 08/05/19 09:59 Last Admin: 07/10/19 08:59 Dose: 25 mg Documented by: Tizanidine HCl (Zanaflex 4 Mg Tablet) 4 mg PO Q6 [facility] Stop: 08/04/19 12:59 Last Admin: 07/10/19 05:24 Dose: 4 mg Documented by: - Allergies Allergies/Adverse Reactions: pregabalin [From Lyrica] Adverse Reaction (Severe, Verified 06/30/19 16:14) fuzzy headed - Diet/Activity Discharge Diet: Cardiac Hospital Course Hospital Course: (1) Sepsis Qualifiers: Sepsis type: sepsis due to unspecified organism Sepsis acute organ dysfunction status: with acute organ dysfunction Severe sepsis acute organ dysfunction type: acute renal failure Acute renal failure type: with acute tubular necrosis Severe sepsis shock status: without septic shock Qualified Code(s): A41.9 - Sepsis, unspecified organism; R65.20 - Severe sepsis without septic shock; N17.0 - Acute kidney failure with tubular necrosis Is this a current diagnosis for this admission?: Yes Plan: 07/01/2019 Sepsis secondary to the soft tissue infection in the perianal/buttock areas. It is bilateral. The patient is being taken to the OR urgently. IV antibiotics with IV fluids and antipyretics. 07/01/2019-patient went to the OR for debridement of the necrotic tissue, patient is presently on IV Zosyn. Dr. Trinidad thinks patient may need a colostomy in the next 24 to 48 hours. wound Cultures and blood cultures are pending. 07/09/2019-patient admitted with perirectal abscess with necrotizing fasciitis status post debridement has a wound VAC and status post colostomy for diversion. Wound cultures from 413 growing E. coli, Peptostreptococcus, strep anginosus, Prevotella species. Cultures are negative. Febrile. Presently on IV Rocephin. 07/10/19-wound is clean wound VAC is in place. Plan is to continue IV Rocephin at this time and patient may able to go to long-term care facility in the next 48 to 72 hours as per surgical team. Patient is accepted to LTAC facility today. (2) Rectal fistula Is this a current diagnosis for this admission?: Yes (3) Left buttock abscess Is this a current diagnosis for this admission?: Yes (4) Abscess of right buttock Is this a current diagnosis for this admission?: Yes (5) Hypertension Qualifiers: Hypertension type: essential hypertension Qualified Code(s): I10 - Essential (primary) hypertension Is this a current diagnosis for this admission?: No Plan: 07/01/2019 Multiple cardiac medications on the patient's computer file. Awaiting pharmacy to reconcile medications. The patient's blood pressure was marginal and she in fact may not require any antihypertensives for several days. 07/01/2019-patient has history of chronic essential hypertension now patient is persistently hypotensive latest blood pressure is 89/61. Ringer lactate solution rate is increased to 250 cc/h. 07/09/2019 blood pressure today is 117/52. Stable. Plan is to continue the present management. 07/10/2019-blood pressure today is 120/60. Afebrile. Stable. (6) Hypocalcemia Is this a current diagnosis for this admission?: Yes Plan: 07/01/2019-serum calcium level today 7.0 and albumin is 3.0 yesterday. Corrected serum calcium may be around 7.8. Plan is to repeat the labs tomorrow including serum albumin. 07/09/19-serum calcium is 7.9 and serum albumin is 2.1. Corrected serum calcium is within normal limits. - Plan Summary Summary: 07/02/2019 This morning her vital signs are stable temperature 98.5 pulse 55 blood pressure 117/64 O2 sat was 98% on 1-1/2 L Patient's pulse and blood pressure both have been running low Last night patient went to the OR where debridement of the buttock necrotizing soft tissue infection was performed. White count on admission was 19.2 it is gone down to 13.2 IV fluids have been running at 250/h due to hypotension Patient is currently on IV Zosyn Patient went back to the OR today for a laparoscopic colostomy July 03, 2019 Patient's labs continue to improve on admission her white blood cell count was 19.2, yesterday it was 13.2 and today it is 9.7 hemoglobin is stable at 10 Chemistry shows a potassium has come up to 4.1 Calcium and albumin remain low, will be supplemented Wound culture is positive x2, appears to be sensitive to meropenem Patient remains afebrile with good blood pressure and pulse. Will decrease IV fluids to KVO Surgery sees patient daily for her wound care and colostomy site. With the help of 2 nurses I have inspected patient's wound, it appears to be dry and clean, ever rather large in diameter and depth 07/04/2019 Temperature 98.6, patient has been afebrile for 72 hours Pulse 60-70 blood pressure 117/51 White count today is gone up slightly to 12.1 from 9.7 yesterday, probably not significant Corrected calcium level is 8.8. This morning patient was so heavily sedated she was falling asleep while talking to me. I have decreased her Dilaudid from 2 mg down to 1 mg I think at time of discharge patient will benefit from an LTAC placement. I think her wound care will be too involved and extensive for jail facility. I have asked nursing to start this process. I have consulted dietary for her nutritional needs for wound healing. 07/05/2019 Today have tried to resume most of her home medicines, those for depression as well as chronic pain, fibromyalgia. DC'd her IV Dilaudid, instead put her back on her extended release OxyContin Switch her IV antibiotic from Zosyn to Rocephin. She will undoubtably be discharged at some time in the future on IV antibiotics. Length will be determined by general surgery will make that decision in the next few days. Patient is complaining of generalized body pain from her "fibromyalgia". Patient remains afebrile 98 8 pulse of 60-70 blood pressure 118/55 White blood cells 12.1 calcium 7.2 wound cultures are positive Postop day 3 for her colostomy Postop day 4 for her initial debridement 07/06/2019 Vital signs are stable WBC is 13.2 which is stable, hemoglobin 10.4 which is stable Chemistry panel normal IV antibiotics a day # 7. Continue IV antibiotics. General surgery states that she is medically stable to be released to long-term care facility for wound management. Discharge planning is going to get this started on Monday. 07/07/2019 Temperature 98.3 pulse 66 blood pressure 122/65 Patient is using 2 L nasal cannula oxygen but I do not think she actually needs it. Sitting up in bed no respiratory distress Labs appear normal Patient getting IV Rocephin LTAC placement has been initiated Patient is complaining of some right-sided rib pain in the axilla. Lungs penaloza thien are clear. Did order a portable chest x-ray Still complaining of some left hand pain where she had an IV previously. I ordered a K pad for this Patient is eating well, stoma is functioning well Addendum: Portable chest x-ray today when compared to previous film dated 06/30/2019, shows possible early edema. Will DC IV fluids and increase her Lasix to twice daily. Patient is not complaining of shortness of breath. She has the same complaint she had back on the with right sided rib pain. 07/08/2019 Temperature 99.2 pulse 80 blood pressure 130/58 O2 sat 97% on room air Wound VAC to be changed either tomorrow or Monday. Patient is on her IV antibiotics for her postop wound culture.. Patient does not appear to be septic. If needed patient could go out on p.o. Keflex. Today is day # 9 IV antibiotics. Patient's labs appear stable. Discharge planning is working on placement Physical Exam Vital Signs: Temp Pulse Resp BP Pulse Ox 98.7 F 71 17 126/62 H 97 07/10/19 07:54 07/10/19 07:54 07/10/19 07:54 07/10/19 07:54 07/10/19 09:02 Intake & Output 07/09/19 07/10/19 07/11/19 06:59 06:59 06:59 Intake Total 1116 1381 310 Output Total 3775 4300 550 Balance -2659 -2919 -240 Weight 92.3 kg 91.7 kg General appearance: PRESENT: mild distress Head exam: PRESENT: atraumatic Eye exam: PRESENT: conjunctiva pink, PERRLA Mouth exam: PRESENT: moist, tongue midline Neck exam: ABSENT: carotid bruit, JVD, lymphadenopathy, thyromegaly Respiratory exam: PRESENT: clear to auscultation florentin. ABSENT: rales, rhonchi, wheezes Cardiovascular exam: PRESENT: RRR. ABSENT: diastolic murmur, rubs, systolic m urmur GI/Abdominal exam: PRESENT: normal bowel sounds, soft. ABSENT: distended, guarding, mass, organolmegaly, rebound, tenderness Rectal exam: PRESENT: deferred, other - Wound VAC attached to the sacral area. Extremities exam: PRESENT: full ROM. ABSENT: calf tenderness, clubbing, pedal edema Neurological exam: PRESENT: alert, awake, oriented to person, oriented to place, oriented to time, oriented to situation, CN II-XII grossly intact. ABSENT: motor sensory deficit Psychiatric exam: PRESENT: appropriate affect, normal mood. ABSENT: homicidal ideation, suicidal ideation Skin exam: PRESENT: other - Wound is clean in the perirectal area and wound VAC present. Results Laboratory Results: 07/09/19 08:04 07/09/19 08:04 Impressions: Thoracic Spine X-Ray 06/30/19 16:30 IMPRESSION: No acute fracture. Ribs w/Chest X-Ray 06/30/19 16:31 IMPRESSION: NO PNEUMOTHORAX. NO DISPLACED RIB FRACTURES. Abdomen/Pelvis CT 06/30/19 21:01 IMPRESSION: 1. 2.5 cm lesion of the upper pole of the left kidney. Differential diagnosis includes neoplasm. Recommend dynamic contrast CT or MRI of the kidneys. 2. Soft tissue emphysema of subcutaneous bilateral buttocks and perineum, left more than right. Soft tissue opacity at the pelvic floor may indicate phlegmon or rectal prolapse. No significant drainable fluid collection or abscess. Moderate inguinal lymphadenopathy. Differential etiologies include iatrogenic and advanced /necrotizing infectious. 3. Colonic stool retention. Orally administered contrast is seen to the level of the mid small bowel. 2.6 cm diameter small bowel with air-fluid levels indicative of ileus or low-grade obstruction. Plan Discharge Plan: Patient is going to LTAC Time Spent: Greater than 30 Minutes
== END 2019-07-10 15:00 | DRG 853 ==
LOC: ER 15:55 → EH 07-01 02:34 → 3S 07-01 06:00
PROVIDERS: ADMIT Hospitalist; ATTEND Internal Medicine
PROC: 0JBM0ZZ Excision of Left Upper Leg Subcutaneous Tissue and Fascia, Open Approach (ICD-10-PCS; 2019-07-01)
PROC: 0D1N4Z4 Bypass Sigmoid Colon to Cutaneous, Percutaneous Endoscopic Approach (ICD-10-PCS; principal; 2019-07-02 13:00)
DX: A41.9 Sepsis, unspecified organism (principal); N17.0 Acute kidney failure with tubular necrosis; L02.31 Cutaneous abscess of buttock; R65.20 Severe sepsis without septic shock; K60.4 Rectal fistula; B96.20 Unspecified Escherichia coli [E. coli] as the cause of diseases classified elsewhere; B95.4 Other streptococcus as the cause of diseases classified elsewhere; K62.89 Other specified diseases of anus and rectum; J43.9 Emphysema, unspecified; E03.9 Hypothyroidism, unspecified; I10 Essential (primary) hypertension; I34.1 Nonrheumatic mitral (valve) prolapse; I25.10 Atherosclerotic heart disease of native coronary artery without angina pectoris; E83.51 Hypocalcemia; K21.9 Gastro-esophageal reflux disease without esophagitis; K64.4 Residual hemorrhoidal skin tags; M79.7 Fibromyalgia; G89.4 Chronic pain syndrome; F41.8 Other specified anxiety disorders; Z60.2 Problems related to living alone; Z79.82 Long term (current) use of aspirin; Z79.891 Long term (current) use of opiate analgesic; Z79.51 Long term (current) use of inhaled steroids; Z79.899 Other long term (current) drug therapy
CPT/HCPCS: 00840; 00902; 36415; 51702; 71045; 72070; 74177; 80048; 80053; 81001; 82040; 82803; 82962; 83605; 83735; 85025; 85610; 87040; 87070; 87075; 87077; 87186; 87205; 93005; 93010; 96361; 96374; 96375; 99291; 99292; J0610; C9113; J0131; J0330; J0692; J0696; J1100; J1170; J1644; J1885; J2250; J2370; J2405; J2543; J2704; J2710; J3010; J3370; J3490; J7030; J7050; J7120